=== PATIENT | male | born 1940 | race Caucasian/White ===

== ENCOUNTER 2017-03-21 09:59 | Emergency (ER) | payer BC, OTHER ==
[~2017-03-21] VITALS: Ht 175.3 cm; Wt 60.0 kg
[~2017-03-21 09:59] MED LIST: ASPCH81 PO; CEPH500C2 PO; DLN100 PO; HYDR2TAB2 PO; IBUP600T44 PO; LISI40TA PO
[2017-03-21 10:02] VITALS: Ht 175.3 cm; Wt 60.0 kg
[2017-03-21] MEDS ORDERED: MoRPHine SULFATE 4 MG/ML 1 ML CARP\\VIAL IV PRN (10:30)
--- NOTE | 2017-03-21 11:00 | DIAGNOSTIC IMAGING REPORT ---
LUMBAR SPINE CT CT DOSE: 598.20 mGy.cm HISTORY: Trauma. Pain. r/o injury from fall TECHNIQUE: Multiaxial CT images of the lumbar spine were performed and reformatted in the sagittal and coronal plane without the use of contrast. COMPARISON: None. FINDINGS: Considerable degenerative disc change throughout the entire lumbar region. Virtual complete loss of disc spaces from L2 through S1. Slight concave deformity superior endplates of L2 and T12 felt to be nonacute radiographically. L1-L2: Moderate multifactorial narrowing of the spinal canal. Moderate narrowing of the neuroforamina bilaterally. Degenerative change posterior facets. L2-L3 moderate multifactorial narrowing of the spinal canal. Moderate osteophytic narrowing of the left and to lesser extent right neuroforamina. L3-L4: Significant multifactorial spinal stenosis. Significant osteophytic narrowing of the neuroforamina bilaterally. L4-L5: Significant multifactorial spinal stenosis. Significant osteophytic narrowing of the neuroforamina bilaterally. L5-S1: Moderate osteophytic narrowing of the neuroforamina bilaterally. Degenerative changes posterior facets. IMPRESSION: 1. Severe degenerative change throughout the entire lumbar region. 2. Multifactorial spinal stenosis at the bulk of the levels of the lumbar spine from L2 through S1. 3. Considerable degenerative change posterior elements with narrowing of the bulk of the neuroforamina bilaterally. 4. No acute abnormalities appreciated. Electronically signed by: Rajan Caceres M.D. 03/21/2017 10:59 AM Dictated Date/Time: 03/21/2017 10:54 AM
[2017-03-21] MEDS ORDERED: ASPI-232 PO (11:12)
[2017-03-21] MEDS ORDERED: DLN100 PO (11:12)
[2017-03-21] MEDS ORDERED: OXYC-57 PO (11:12)
--- NOTE | 2017-03-21 11:37 | EMERGENCY ROOM VISIT NOTE ---
History Report prepared by Liam: Veto Wade Under the Supervision of: Dr. Neal Gale D.O. First contact with patient: 10:09 Chief Complaint: BACK PAIN Stated Complaint: BACK PAIN/INJURY History of Present Illness The patient is a 76 year old male who presents to the Emergency Room with complaints of low back pain starting about 10 days ago and worsening about 7 days ago. He has pain radiation down his legs bilaterally. He reports bilateral lower extremity swelling and numbness. He had an onset of his pain after a fall when he injured his back. He has worsening pain with lying down flat. As per son , the patient was evaluated at [facility] 4 days ago. He was prescribed pain medications without relief. He was supposed to get an MRI yesterday but was unable to get one due to the severity of the pain. He denies chest pain, shortness of breath, abdominal pain, or any other complaints. He is not on any blood thinners. Source of History: patient Onset: about 10 days ago Position: back (lower) Timing: worsening Modifying Factors (Worsening): other (lying down flat) Modifying Factors (Relieving): other (pain medications without relief) Associated Symptoms: + numbness (bilateral lower extremity), No chest pain, No SOB, No abdominal pain Review of Systems See HPI for pertinent positives & negatives. A total of 10 systems reviewed and were otherwise negative. Past Medical & Surgical Medical Problems: (1) Amputation of left foot (2) Benign hypertension (3) Hypertension (4) Orthopedic surgery (5) Seizure (6) UTI Family History Patient reports no known family medical history. Social History Smoking Status: Never Smoker Alcohol Use: none Drug Use: none Marital Status: Occupation Status: retired Current/Historical Medications Scheduled Aspirin (Aspir-81), 1 TAB PO DAILY Lisinopril (Zestril), 40 MG PO DAILY Phenytoin Sodium (Dilantin), 3 CAP PO BID Scheduled PRN Oxycodone/Acetaminophen 5MG/325MG (Percocet 5MG/325MG), 1 TABLET PO Q6H PRN for Pain Allergies Coded Allergies: No Known Allergies (Verified , 03/21/17) Physical Exam Vital Signs Date Time Temp Pulse Resp B/P (MAP) Pulse Ox O2 Delivery O2 Flow Rate FiO2 03/21/17 10:02 36.7 86 20 189/101 94 Room Air Physical Exam CONSTITUTIONAL/VITAL SIGNS: Reviewed / noted above. GENERAL: Non-toxic in appearance. INTEGUMENTARY: Warm, dry, and [place]. HEAD: Normocephalic. EYES: without scleral icterus or trauma. ENT/OROPHARYNX: clear and moist. LYMPHADENOPATHY/NECK: Is supple without lymphadenopathy or meningismus. RESPIRATORY: Lungs clear and equal. CARDIOVASCULAR: Regular rate and rhythm. GI/ABDOMEN: Soft and nontender. No organomegaly or pulsatile mass. No rebound or guarding. Normal bowel sounds. EXTREMITIES: Warm and well perfused. Normal patellar reflexes. Left lower extremity amputation. BACK: No CVA tenderness. NEUROLOGICAL: Intact without focal deficits. PSYCHIATRIC: normal affect. MUSCULOSKELETAL: Normally developed with good muscle tone. Medical Decision & Procedures ER Provider Diagnostic Interpretation: CT results as stated below per my review and radiologist interpretation: LUMBAR SPINE CT CT DOSE: 598.20 mGy.cm HISTORY: Trauma. Pain. r/o injury from fall TECHNIQUE: Multiaxial CT images of the lumbar spine were performed and reformatted in the sagittal and coronal plane without the use of contrast. COMPARISON: None. FINDINGS: Considerable degenerative disc change throughout the entire lumbar region. Virtual complete loss of disc spaces from L2 through S1. Slight concave deformity superior endplates of L2 and T12 felt to be nonacute radiographically. L1-L2: Moderate multifactorial narrowing of the spinal canal. Moderate narrowing of the neuroforamina bilaterally. Degenerative change posterior facets. L2-L3 moderate multifactorial narrowing of the spinal canal. Moderate osteophytic narrowing of the left and to lesser extent right neuroforamina. L3-L4: Significant multifactorial spinal stenosis. Significant osteophytic narrowing of the neuroforamina bilaterally. L4-L5: Significant multifactorial spinal stenosis. Significant osteophytic narrowing of the neuroforamina bilaterally. L5-S1: Moderate osteophytic narrowing of the neuroforamina bilaterally. Degenerative changes posterior facets. IMPRESSION: 1. Severe degenerative change throughout the entire lumbar region. 2. Multifactorial spinal stenosis at the bulk of the levels of the lumbar spine from L2 through S1. 3. Considerable degenerative change posterior elements with narrowing of the bulk of the neuroforamina bilaterally. 4. No acute abnormalities appreciated. Electronically signed by: Rajan Caceres M.D. 03/21/2017 10:59 AM Dictated Date/Time: 03/21/2017 10:54 AM Medications Administered Medications (Trade) Dose Ordered Sig/Eileen Route Start Time Stop Time Status Last Admin Dose Admin Morphine Sulfate (MoRPHine SULFATE INJ) 4 mg Q4H PRN IV 03/21/17 10:30 04/04/17 10:29 03/21/17 10:28 4 MG ED Course 1009: Previous medical records were reviewed. The patient was evaluated in room B07. A complete history and physical examination was performed. 1030: Morphine Sulfate 4 mg IV 1138: On reevaluation, the patient is resting comfortably. I discussed the results and findings with the patient. He verbalized agreement of the treatment plan. He was discharged home. Medical Decision Differential considered includes cauda equina syndrome, conus medullaris, spinal cord compression syndrome, peripheral nerve compression, fractures or subluxations, intra-abdominal pathology such as abdominal aortic aneurysm or kidney stones, muscle strain, transverse myelitis, spinal cord injury. Medication Reconciliation: I attest that I have personally reviewed the patient' s current medication list. Blood pressure Screening: Patient was found to have an elevated blood pressure and was referred to their primary doctor for recheck and further treatment. This is a 76-year-old male who presents to the ED with a chief complaint of a fall 10 days ago. He has experienced low back pain since that time. It is worsened since that time. He complains of pain in the low lumbar region that radiates into his legs. The patient was seen by [facility] on Friday. He was given pain medication for this. They ordered an MRI on Friday but he was unable to tolerate laying flat. He came in here for additional evaluation. He was given morphine IV here. A CT scan of the lumbar spine reveal severe degenerative changes as well as some narrowing of the neural foramina bilaterally as well as multifactorial spinal stenosis. There is no acute injury. The patient was told the results of the test. He was felt to be stable for discharge and outpatient follow-up with his orthopedist. Impression Primary Impression: Low back pain Scribe Attestation The scribe's documentation has been prepared under my direction and personally reviewed by me in its entirety. I confirm that the note above accurately reflects all work, treatment, procedures, and medical decision making performed by me. Departure Information Dispostion Home / Self-Care Referrals Rodolfo Crum D.O. (PCP) Forms HOME CARE DOCUMENTATION FORM, IMPORTANT VISIT INFORMATION Patient Instructions My [facility] Additional Instructions Follow-up with your market risk specialist for further evaluation of your symptoms.
[2017-03-21 11:57] VITALS: BP 164/102; PULSE 79; TEMP 36.7; O2SAT 96
== END 2017-03-21 11:59 | disposition home or self-care (01) ==
LOC: C.EDB 10:00
DX: M54.5 Low back pain (principal); W19.XXXD Unspecified fall, subsequent encounter; Z89.432 Acquired absence of left foot; I10 Essential (primary) hypertension; Z87.440 Personal history of urinary (tract) infections; Z79.82 Long term (current) use of aspirin; Z79.899 Other long term (current) drug therapy

== ENCOUNTER → 2017-04-14 | Outpatient (CLI) | payer OTHER ==
[~2017-04-14] MED LIST changes: -ASPCH81 PO; +ASPI-232 PO; -CEPH500C2 PO; -HYDR2TAB2 PO; -IBUP600T44 PO; +OXYC-57 PO; +OXYC1TAB3 PO
--- NOTE | 2017-04-14 18:34 | DIAGNOSTIC IMAGING REPORT ---
MRI LUMBAR SPINE W/O CONTRAST CLINICAL HISTORY: Low back pain and bilateral leg radiculopathy. History of trauma. TECHNIQUE: Sagittal and axial T1, T2 and STIR images were obtained. COMPARISON STUDY: CT scan dated 03/21/2017 OBSERVATIONS: There is an S-shaped lumbar scoliosis. There is a trabeculated bladder. There is an old superior endplate L2 compression fracture. There is marrow edema involving both sacral alae. Although axial images were not acquired through this area, the findings are viewed as suspicious for bilateral sacral fractures. L1-2: There is a circumferential disc bulge. There is mild spinal stenosis. There is bilateral foraminal narrowing. L2-3: There is a circumferential disc bulge present. There is mild spinal stenosis. There is moderate to severe left-sided foraminal narrowing and mild right-sided foraminal narrowing L3-4: There is a circumferential disc bulge present. There is moderate to severe spinal stenosis. There is bilateral foraminal narrowing. L4-5: There is a circumferential disc bulge present. There is severe right-sided foraminal narrowing. There is no significant spinal stenosis as the thecal sac is rather small this level L5-S1: There is a circumferential disc bulge present. There is bilateral foraminal stenosis. There is no significant spinal stenosis. The conus medullaris and cauda equina appear normal. IMPRESSION: 1. Bilateral sacral ala edema, most consistent with bilateral sacral insufficiency fractures. 2. Multilevel spondylitic changes with multilevel foraminal narrowing, and multilevel spinal stenosis which is moderate to severe at the L3-4 level 3. Extensive bladder trabeculation Electronically signed by: Bobby Grimes M.D. 04/14/2017 6:33 PM Dictated Date/Time: 04/14/2017 6:24 PM
== END | disposition home or self-care (01) ==
LOC: C.MRI 15:54
PROVIDERS: ATTEND Physician Assistant
DX: M54.5 Low back pain (principal)

== ENCOUNTER 2017-04-15 07:29 | Emergency (ER) | payer OTHER ==
[~2017-04-15] VITALS: Ht 175.3 cm; Wt 59.1 kg
[~2017-04-15 07:29] MED LIST changes: -OXYC1TAB3 PO
[2017-04-15 07:36] VITALS: TEMP 36.9; Ht 175.3 cm; Wt 59.1 kg
[2017-04-15] MEDS ORDERED: MoRPHine SULFATE 10 MG/ML CARP/VIAL IM STA (08:01)
--- NOTE | 2017-04-15 08:11 | EMERGENCY ROOM VISIT NOTE ---
History First contact with patient: 07:50 Chief Complaint: FALL Stated Complaint: FALL` History of Present Illness The patient is a 77 year old male who presents to the Emergency Room with complaints of fall. The patient was at this hospital yesterday and having an MRI of his low back. He states that he had to take his prosthetic left leg off. He states that he was in the bathroom and lost his balance and fell. He believes he struck his right ribs on the commode. He states he also struck his head and sustained a skin tear to the right upper extremity. He states that they offered for the patient to come to the emergency department but he declined and wanted to go home. The patient states he is having worsening pain in the right ribs and right arm. He states that his neck hurt yesterday but that has slightly improved. He denies any shortness of breath. He denies syncope. He denies any abdominal pain, nausea or vomiting. He denies any change in his low back pain or radicular pain to his legs. Review of Systems A 10 system review of systems was completed with positives and pertinent negatives listed in the HPI. Past Medical/Surgical History Medical Problems: (1) Amputation of left foot (2) Benign hypertension (3) Hypertension (4) Orthopedic surgery (5) Seizure (6) UTI Family History Patient reports no known family medical history. Social History Smoking Status: Never Smoker Alcohol Use: none Drug Use: none Marital Status: Occupation Status: retired Current/Historical Medications Scheduled Aspirin (Aspir-81), 1 TAB PO DAILY Lisinopril (Zestril), 40 MG PO DAILY Phenytoin Sodium (Dilantin), 3 CAP PO BID Scheduled PRN Oxycodone Ir (Roxicodone Ir), 1-2 TAB PO Q4H PRN for Pain Allergies Coded Allergies: No Known Allergies (Verified , 04/15/17) Physical Exam Vital Signs Date Time Temp Pulse Resp B/P (MAP) Pulse Ox O2 Delivery O2 Flow Rate FiO2 04/15/17 13:31 68 16 155/91 97 04/15/17 11:39 15 174/99 99 04/15/17 10:42 71 15 177/108 98 Room Air 04/15/17 09:25 61 16 167/97 97 Room Air 04/15/17 07:36 36.9 83 18 174/109 95 Room Air Physical Exam VITALS: Vitals are noted on the nurse's note and reviewed by myself. Vital signs stable. GENERAL: This is a 77-year-old male, in no acute distress, nondiaphoretic, well- developed well-nourished. SKIN: There is a very large but superficial skin tear to the right humerus area. There is ecchymosis noted to the right posterior lower ribs. There is no tenting of the skin. Capillary reflex less than 2 seconds. HEAD: Normocephalic atraumatic. EARS: External auditory canals clear, tympanic membranes pearly antoine without erythema or effusion bilaterally. No hemotympanums. No erickson sign. No mastoid tenderness. EYES: Pupils equal round and reactive to light and accommodation. Conjunctivae without injection, sclerae without icterus. Extraocular movements intact. Fundoscopic exam without hemorrhages or papilledema. NOSE: Patent, turbinates without inflammation or discharge. No septal hematoma or bleeding. FACE: No facial tenderness. Full range of motion of the jaw without tenderness. MOUTH: Mucous membranes moist. Pharynx without erythema or exudate. Uvula midline. Airway patent. Tongue does not deviate. NECK: Supple without nuchal rigidity. Cervical spine is nontender. The patient reports some stiffness with movement of the neck. No JVD. HEART: Regular rate and rhythm without murmurs gallops or rubs. LUNGS: Clear to auscultation bilaterally without wheezes, rales or rhonchi. No retractions or accessory muscle use. There is tenderness to palpation to the right posterior lower ribs in the area of ecchymosis. ABDOMEN: Positive bowel sounds x 4. Normal tympanic percussion. Soft, nontender, without masses or organomegaly. MUSCULOSKELETAL: No muscle atrophy, erythema, or edema noted. There is decreased range of motion in the right shoulder. There is tenderness to palpation over the skin tear. Strength 5/5 throughout. NEURO: Patient was alert and oriented to person place and time. Normal Mini- Mental status exam. No focal neurological deficits. Medical Decision & Procedures ER Provider Diagnostic Interpretation: THORACIC SPINE CT CT DOSE: HISTORY: Trauma. Pain. back pain, please reformat from chest ct TECHNIQUE: Multiaxial CT images of the thoracic spine were performed and reformatted in the sagittal and coronal plane without the use of contrast. COMPARISON: None. FINDINGS: Considerable degenerative disc change throughout the entire thoracic region. Mild compression deformities of T4 with moderate compression deformities T5 felt to be nonacute by CT criteria. Slightly fragmented 75% compression deformity T7 most likely acute. Based on the transaxial transaxial images possible slight progression of compression at T5 at its anterior endplate. No evidence for retropulsion of any component of the vertebral body. 3 mm posterior retropulsion of T7. Major compromise of the spinal canal is not appreciated. Moderate narrowing of the neuroforamina bilaterally. All remaining components of the lower thoracic region are considered unremarkable. IMPRESSION: 1. 75% compression deformity T7 with 3 mm retropulsion of the T7 posterior margin. 2. No significant compromise of the spinal canal with mild/moderate narrowing of the neuroforamina bilaterally. 3. 50% compression deformity T5 the bulk of which appears to be chronic although there may be a slight acute posttraumatic deformity/ component of the anterior vertebral margin. 4. Old mild compression deformity T4. CT SCAN OF THE CERVICAL SPINE CLINICAL HISTORY: Fall with neck pain. COMPARISON STUDY: CT scan of the cervical spine dated 12/23/2012. TECHNIQUE: CT scan of the cervical spine is performed from the skull base to the upper thoracic spine. Images are reviewed in the axial, sagittal, and coronal planes. IV contrast was not administered for this examination. CT DOSE: 478.67 mGycm FINDINGS: Skeletal structures: The skeletal structures are osteopenic. There is no evidence of fracture or subluxation involving the cervical spine. Vertebral body height is maintained. There is minimal anterolisthesis at C3-C4 and C4-C5. Alignment is otherwise preserved. The odontoid process and lateral masses are intact. The atlantoaxial articulation is preserved noting productive degenerative change. The spinous processes appear intact. Anterior osteophytes are seen in the lower cervical region. A bone island is incidentally noted in T3. There is advanced multilevel cervical spondylosis. Uncovertebral and facet arthropathy contribute to neural foraminal narrowing at most levels. Intervertebral discs: There is advanced disc space narrowing seen at C3-C4, C5-C6, C6-C7, and C7-T1. Mild to moderate disc space narrowing is seen at the remaining levels. Central canal: Posterior disc osteophyte complexes from C4 -C5 through C7-T1 likely contribute to acquired compromise of the central canal. Soft tissues: The prevertebral and paraspinous soft tissues are within normal limits. There is atherosclerotic calcification of the carotid bulbs. Calvarium: The visualized calvarium at the skull base appears intact. Brain parenchyma: Partially visualized brain parenchyma the skull base is within normal limits. Sinuses and mastoids: The visualized paranasal sinuses are clear. The mastoid air cells are well pneumatized. Lung apices: Emphysema is noted. There is a calcified granuloma the left apex. IMPRESSION: 1. There is no evidence of fracture or subluxation involving the cervical spine. 2. Osteopenia and advanced multilevel cervical spondylosis as discussed above. 3. Emphysema. DIAGNOSTIC IMAGING [~ rep ct add3]] (CHEST) THORAX WITHOUT HISTORY:77 yearsMalefall, right posterior rib pain COMPARISON: MRI lumbar spine 04/14/2017 TECHNIQUE: Multiple axial CT images of the chest were obtained without contrast. FINDINGS: No focal thyroid nodule. No pathologic-appearing adenopathy identified. Coronary arterial calcifications are seen. There is atherosclerosis of the aorta. There is a calcified granuloma of the left upper lobe. Lungs are mildly hyperinflated with mild biapical predominant centrilobular emphysema. No pneumothorax, pleural effusion or focal airspace consolidation. There is minimal linear subsegmental atelectasis and/or pleural parenchymal scarring of the basal right lower lobe. A 3 mm perifacial lymph node is seen on the right adjacent to the major fissure. Central airways are patent. 11 x 8 mm circumscribed low attenuating lesion of the hepatic dome is nonspecific, however suggests hepatic cyst. There are bilateral low attenuating lesions of the adrenal glands lesion on the left measuring 2.6 x 1.7 cm lesion on the right measuring 2.2 x 1.4 cm compatible with adrenal adenomas. Soft tissues are unremarkable. Sclerotic focus involves the posterior right sixth rib which may reflect a bone island. There is mild cortical buckling of the lateral right fifth, sixth and seventh ribs suggesting acute nondisplaced fractures. No displaced rib fracture is identified. Multilevel advanced discogenic degenerative changes are present. Approximately 50% anterior endplate compression deformities are seen within the T5 and T7 vertebral bodies. There is approximately 3 mm retropulsion of the T7 vertebral body. IMPRESSION: 1. Advanced multilevel discogenic degenerative changes with approximately 50% anterior endplate compression deformity at T5 and T7. There is approximately 3 mm retropulsion of the T7 vertebral body. Chronicity is unknown without comparison available at this time. If of further clinical concern, dedicated MRI of the thoracic spine may be beneficial to further evaluate. 2. Minimal angulation of the lateral right fifth, sixth and seventh ribs suspicious for subtle nondisplaced fractures without pneumothorax. 3. Bilateral adrenal adenomas. HEAD CT NONCONTRAST CT DOSE: 638.56 mGycm HISTORY: Trauma fall, head injury TECHNIQUE: Multiaxial CT images of the head were performed without the use of intravenous contrast. Comparison: 12/23/2012 Findings: The paranasal sinuses and mastoid air cells are clear. The calvarium and skull base are intact. The ventricles and sulci are within normal limits. There is no mass, hematoma, midline shift, or acute infarct. Mild age-related chronic small vessel change Impression: No acute intracranial abnormality. Mild age-related change RIGHT HUMERUS MIN 2 VIEWS ROUTINE CLINICAL HISTORY: fall, right arm pain Right trauma. Pain. COMPARISON: None. DISCUSSION: Nondisplaced cortical fracture radial head. Remainder the humerus show degenerative change but no additional acute abnormalities appreciated. There is dated history of prior elbow fracture although films are not available for comparison. There is no evidence for soft tissue swelling. IMPRESSION: Degenerative change. No acute process of the humerus. Cortical fracture radial head possibly pre-existing per history: Laboratory Results 04/15/17 10:15 Red Blood Count 3.66, Mean Corpuscular Volume 97.3, Mean Corpuscular Hemoglobin 33.6, Mean Corpuscular Hemoglobin Concent 34.6, Mean Platelet Volume 8.5, Neutrophils (%) (Auto) 62.6, Lymphocytes (%) (Auto) 21.8, Monocytes (%) (Auto) 12.3, Eosinophils (%) (Auto) 2.9, Basophils (%) (Auto) 0.3, Neutrophils # (Auto ) 4.70, Lymphocytes # (Auto) 1.64, Monocytes # (Auto) 0.92, Eosinophils # (Auto ) 0.22, Basophils # (Auto) 0.02 04/15/17 10:15 Test 04/15/17 10:15 White Blood Count 7.51 K/uL (4.8-10.8) Red Blood Count 3.66 M/uL (4.7-6.1) Hemoglobin 12.3 g/dL (14.0-18.0) Hematocrit 35.6 % (42-52) Mean Corpuscular Volume 97.3 fL (80-100) Mean Corpuscular Hemoglobin 33.6 pg (25-34) Mean Corpuscular Hemoglobin Concent 34.6 g/dl (32-36) Platelet Count 228 K/uL (130-400) Mean Platelet Volume 8.5 fL (7.4-10.4) Neutrophils (%) (Auto) 62.6 % Lymphocytes (%) (Auto) 21.8 % Monocytes (%) (Auto) 12.3 % Eosinophils (%) (Auto) 2.9 % Basophils (%) (Auto) 0.3 % Neutrophils # (Auto) 4.70 K/uL (1.4-6.5) Lymphocytes # (Auto) 1.64 K/uL (1.2-3.4) Monocytes # (Auto) 0.92 K/uL (0.11-0.59) Eosinophils # (Auto) 0.22 K/uL (0-0.5) Basophils # (Auto) 0.02 K/uL (0-0.2) RDW Standard Deviation 48.5 fL (36.4-46.3) RDW Coefficient of Variation 13.7 % (11.5-14.5) Immature Granulocyte % (Auto) 0.1 % Immature Granulocyte # (Auto) 0.01 K/uL (0.00-0.02) Anion Gap 8.0 mmol/L (3-11) Est Creatinine Clear Calc Drug Dose 65.7 ml/min Estimated GFR () 100.6 Estimated GFR (Non- 86.8 BUN/Creatinine Ratio 17.9 (10-20) Calcium Level 9.2 mg/dl (8.5-10.1) Total Bilirubin 0.2 mg/dl (0.2-1) Aspartate Amino Transf (AST/SGOT) 24 U/L (15-37) Alanine Aminotransferase (ALT/SGPT) 33 U/L (12-78) Alkaline Phosphatase 170 U/L (45-117) Total Protein 7.5 gm/dl (6.4-8.2) Albumin 3.5 gm/dl (3.4-5.0) Globulin 4.0 gm/dl (2.5-4.0) Albumin/Globulin Ratio 0.9 (0.9-2) Medications Administered Medications (Trade) Dose Ordered Sig/Eileen Route Start Time Stop Time Status Last Admin Dose Admin Morphine Sulfate (MoRPHine SULFATE INJ) 6 mg NOW STAT IM 04/15/17 08:01 04/15/17 08:04 DC 04/15/17 08:10 6 MG Morphine Sulfate (MoRPHine SULFATE INJ) 4 mg NOW STAT IV 04/15/17 10:36 04/15/17 10:37 DC 04/15/17 10:44 4 MG ED Course The patient was seen and examined. Previous visits were reviewed. The patient does not have a fever or leukocytosis. He does have a mild anemia. He does not have any significant electrolyte abnormality. Imaging was obtained as above. CT scan of the thoracic spine reveals a 75% compression deformity of T3 with 3 mm of retropulsion which is thought to be acute. There is 50% compression to the T5 vertebrae which appears to be chronic with possibly an acute component. I was able to find an x-ray from 1998 in which the T5 compression fracture was present. There is an old T4 compression deformity. CT scan of the neck reveals chronic changes CT scan of the brain is negative for intracranial bleeding or skull fracture CT scan of the chest reveals right-sided fifth, sixth and seventh rib fractures The patient was given 6 mg IV morphine which significantly improved his pain He was given additional 4 mg IV morphine and was feeling markedly better and was able to ambulate without significant difficulty The patient presents to the emergency department after falling in the hospital yesterday while he was in the bathroom during an MRI study. He declined evaluation in the emergency department yesterday. The patient has chronic low back pain with radiation to his legs. This was unchanged since the fall. The MRI from yesterday was reviewed and reveals sacral insufficiency fractures. The patient has a skin tear to the right arm. It is not suturable. There is minimal bleeding. It was cleaned and dressed with a nonstick dressing. The patient has right-sided fifth 6 and seventh rib fractures likely new from the fall yesterday. There is old radial head fracture on x-ray of the right humerus. He does not have any tenderness over the elbow. There is a compression deformity at T3 with 3 mm of retropulsion. Radiology suspects that this is acute. The case was discussed with Dr. Puente with whom the patient follows. He recommends admission to the hospital, possible TLSO brace and discharged to inpatient rehabilitation. The patient adamantly refuses admission to the hospital. He adamantly refuses inpatient rehabilitation. He states that he is not interested in a brace. He states that he had a brace before that it made his symptoms worse. I again discussed the case with Dr. Puente who evaluated the patient in the emergency department. He believes that this is likely a chronic T3 compression fracture and not new from his fall yesterday. He will follow-up with the patient in the office on Friday morning. The patient again was adamant he did not want stay in the hospital and did not want inpatient rehabilitation. The patient stated he wanted to go home. He stated that if it was his time he wanted to at home. He states that he understands the risks. He will be given a prescription for OxyIR. He should return with worsening symptoms. Otherwise, he should follow-up with Dr. Yin on Friday as scheduled. He should also follow-up with his family doctor before the end of the week to recheck the skin tear. He may need referral to the wound care center if the skin tear is not healing well. The patient was also seen and examined by who agrees with the assessment and treatment plan. Medical Decision DIFFERENTIAL DIAGNOSIS: Lumbar strain, degenerative disc disease, spondylolisthesis, herniated disc, spinal stenosis, osteoporosis, fracture, cauda equina syndrome, neoplasm, infection, inflammatory arthritis, intracranial bleeding, skull fracture, cervical spine fracture, extremity fracture, among others among others. [place] Drug Monitoring Program Search Results: patient reviewed within database, no issues identified Impression Primary Impression: Compression fracture Additional Impressions: Rib fractures Skin tear Fall Back pain Departure Information Dispostion Home / Self-Care Condition GOOD Prescriptions Oxycodone Ir (Roxicodone Ir) 5 Mg Tab 1-2 TAB PO Q4H Y for Pain, #36 TAB For Initial Treatment Prov: Alexandra Briggs PA-C 04/15/17 Referrals Rodolfo Crum D.O. (PCP) Sander Yin M.D. Patient Instructions My [facility] Ensequence Additional Instructions Oxy IR 1-2 tablets every 4-6 hrs as needed for worse pain. No driving or alcohol use with Oxy IR. Follow-up with Dr. Yin on Friday at 9:30 as scheduled Follow-up with your family doctor within the next 3 days to recheck the skin tear on the arm. You could try Telfa nonstick gauze to redress it. You may need to see the wound care center if the skin tear does not heal well. Return to the emergency department with intractable or worsening pain. Problem Qualifiers Additional Impressions: Rib fractures Encounter type: initial encounter Rib fracture type: multiple ribs Fracture type: closed Laterality: right Qualified Codes: S22.41XA - Multiple fractures of ribs, right side, initial encounter for closed fracture Fall Encounter type: initial encounter Qualified Codes: W19.XXXA - Unspecified fall, initial encounter Back pain Back pain location: thoracic back pain Chronicity: acute Back pain laterality: right Qualified Codes: M54.6 - Pain in thoracic spine
--- NOTE | 2017-04-15 08:50 | DIAGNOSTIC IMAGING REPORT ---
HEAD CT NONCONTRAST CT DOSE: 638.56 mGycm HISTORY: Trauma fall, head injury TECHNIQUE: Multiaxial CT images of the head were performed without the use of intravenous contrast. Comparison: 12/23/2012 Findings: The paranasal sinuses and mastoid air cells are clear. The calvarium and skull base are intact. The ventricles and sulci are within normal limits. There is no mass, hematoma, midline shift, or acute infarct. Mild age-related chronic small vessel change Impression: No acute intracranial abnormality. Mild age-related change Electronically signed by: Rajan Caceres M.D. 04/15/2017 8:49 AM Dictated Date/Time: 04/15/2017 8:47 AM
--- NOTE | 2017-04-15 08:56 | DIAGNOSTIC IMAGING REPORT ---
CT SCAN OF THE CERVICAL SPINE CLINICAL HISTORY: Fall with neck pain. COMPARISON STUDY: CT scan of the cervical spine dated 12/23/2012. TECHNIQUE: CT scan of the cervical spine is performed from the skull base to the upper thoracic spine. Images are reviewed in the axial, sagittal, and coronal planes. IV contrast was not administered for this examination. CT DOSE: 478.67 mGycm FINDINGS: Skeletal structures: The skeletal structures are osteopenic. There is no evidence of fracture or subluxation involving the cervical spine. Vertebral body height is maintained. There is minimal anterolisthesis at C3-C4 and C4-C5. Alignment is otherwise preserved. The odontoid process and lateral masses are intact. The atlantoaxial articulation is preserved noting productive degenerative change. The spinous processes appear intact. Anterior osteophytes are seen in the lower cervical region. A bone island is incidentally noted in T3. There is advanced multilevel cervical spondylosis. Uncovertebral and facet arthropathy contribute to neural foraminal narrowing at most levels. Intervertebral discs: There is advanced disc space narrowing seen at C3-C4, C5-C6, C6-C7, and C7-T1. Mild to moderate disc space narrowing is seen at the remaining levels. Central canal: Posterior disc osteophyte complexes from C4 -C5 through C7-T1 likely contribute to acquired compromise of the central canal. Soft tissues: The prevertebral and paraspinous soft tissues are within normal limits. There is atherosclerotic calcification of the carotid bulbs. Calvarium: The visualized calvarium at the skull base appears intact. Brain parenchyma: Partially visualized brain parenchyma the skull base is within normal limits. Sinuses and mastoids: The visualized paranasal sinuses are clear. The mastoid air cells are well pneumatized. Lung apices: Emphysema is noted. There is a calcified granuloma the left apex. IMPRESSION: 1. There is no evidence of fracture or subluxation involving the cervical spine. 2. Osteopenia and advanced multilevel cervical spondylosis as discussed above. 3. Emphysema. Electronically signed by: Shane Singh M.D. 04/15/2017 8:55 AM Dictated Date/Time: 04/15/2017 8:50 AM
--- NOTE | 2017-04-15 09:02 | DIAGNOSTIC IMAGING REPORT ---
(CHEST) THORAX WITHOUT HISTORY:77 yearsMalefall, right posterior rib pain COMPARISON: MRI lumbar spine 04/14/2017 TECHNIQUE: Multiple axial CT images of the chest were obtained without contrast. FINDINGS: No focal thyroid nodule. No pathologic-appearing adenopathy identified. Coronary arterial calcifications are seen. There is atherosclerosis of the aorta. There is a calcified granuloma of the left upper lobe. Lungs are mildly hyperinflated with mild biapical predominant centrilobular emphysema. No pneumothorax, pleural effusion or focal airspace consolidation. There is minimal linear subsegmental atelectasis and/or pleural parenchymal scarring of the basal right lower lobe. A 3 mm perifacial lymph node is seen on the right adjacent to the major fissure. Central airways are patent. 11 x 8 mm circumscribed low attenuating lesion of the hepatic dome is nonspecific, however suggests hepatic cyst. There are bilateral low attenuating lesions of the adrenal glands lesion on the left measuring 2.6 x 1.7 cm lesion on the right measuring 2.2 x 1.4 cm compatible with adrenal adenomas. Soft tissues are unremarkable. Sclerotic focus involves the posterior right sixth rib which may reflect a bone island. There is mild cortical buckling of the lateral right fifth, sixth and seventh ribs suggesting acute nondisplaced fractures. No displaced rib fracture is identified. Multilevel advanced discogenic degenerative changes are present. Approximately 50% anterior endplate compression deformities are seen within the T5 and T7 vertebral bodies. There is approximately 3 mm retropulsion of the T7 vertebral body. IMPRESSION: 1. Advanced multilevel discogenic degenerative changes with approximately 50% anterior endplate compression deformity at T5 and T7. There is approximately 3 mm retropulsion of the T7 vertebral body. Chronicity is unknown without comparison available at this time. If of further clinical concern, dedicated MRI of the thoracic spine may be beneficial to further evaluate. 2. Minimal angulation of the lateral right fifth, sixth and seventh ribs suspicious for subtle nondisplaced fractures without pneumothorax. 3. Bilateral adrenal adenomas. The above report was generated using voice recognition software. It may contain grammatical, syntax or spelling errors. Electronically signed by: Bentley Dickey 04/15/2017 9:00 AM Dictated Date/Time: 04/15/2017 8:49 AM
--- NOTE | 2017-04-15 09:21 | DIAGNOSTIC IMAGING REPORT ---
RIGHT HUMERUS MIN 2 VIEWS ROUTINE CLINICAL HISTORY: fall, right arm pain Right trauma. Pain. COMPARISON: None. DISCUSSION: Nondisplaced cortical fracture radial head. Remainder the humerus show degenerative change but no additional acute abnormalities appreciated. There is dated history of prior elbow fracture although films are not available for comparison. There is no evidence for soft tissue swelling. IMPRESSION: Degenerative change. No acute process of the humerus. Cortical fracture radial head possibly pre-existing per history: Electronically signed by: Rajan Caceres M.D. 04/15/2017 9:19 AM Dictated Date/Time: 04/15/2017 9:16 AM
[2017-04-15 10:24] LABS: BASO % 0.3 %; BASO ABS # 0.02 K/uL (0-0.2); COMPLETE YES; EOS % 2.9 %; HEMATOCRIT 35.6 % (42-52); IG% 0.1 %; LYMPH % 21.8 %; LYMPH ABS # 1.64 K/uL (1.2-3.4); MEAN CELL VOLUME 97.3 fL (80-100); MEAN CORPUSCULAR HEMOGLOBIN 33.6 pg (25-34); MEAN CORPUSCULAR HGB CONC 34.6 g/dl (32-36); MEAN PLATELET VOLUME 8.5 fL (7.4-10.4); MONO % 12.3 %; NEUT % 62.6 %; PLATELET COUNT 228 K/uL (130-400); RED BLOOD COUNT 3.66 M/uL (4.7-6.1); WHITE BLOOD COUNT 7.51 K/uL (4.8-10.8)
[2017-04-15] MEDS ORDERED: MoRPHine SULFATE 4 MG/ML 1 ML CARP\\VIAL IV STA (10:36)
[2017-04-15 10:41] LABS: BUN/CREATININE RATIO 17.9 (10-20); CALCIUM 9.2 mg/dl (8.5-10.1); CREATININE 0.8 mg/dl (0.60-1.40)
[2017-04-15 10:44] LABS: ALB/GLOB RATIO 0.9 (0.9-2)
--- NOTE | 2017-04-15 11:36 | DIAGNOSTIC IMAGING REPORT ---
THORACIC SPINE CT CT DOSE: HISTORY: Trauma. Pain. back pain, please reformat from chest ct TECHNIQUE: Multiaxial CT images of the thoracic spine were performed and reformatted in the sagittal and coronal plane without the use of contrast. COMPARISON: None. FINDINGS: Considerable degenerative disc change throughout the entire thoracic region. Mild compression deformities of T4 with moderate compression deformities T5 felt to be nonacute by CT criteria. Slightly fragmented 75% compression deformity T7 most likely acute. Based on the transaxial transaxial images possible slight progression of compression at T5 at its anterior endplate. No evidence for retropulsion of any component of the vertebral body. 3 mm posterior retropulsion of T7. Major compromise of the spinal canal is not appreciated. Moderate narrowing of the neuroforamina bilaterally. All remaining components of the lower thoracic region are considered unremarkable. IMPRESSION: 1. 75% compression deformity T7 with 3 mm retropulsion of the T7 posterior margin. 2. No significant compromise of the spinal canal with mild/moderate narrowing of the neuroforamina bilaterally. 3. 50% compression deformity T5 the bulk of which appears to be chronic although there may be a slight acute posttraumatic deformity/ component of the anterior vertebral margin. 4. Old mild compression deformity T4. Electronically signed by: Rajan Caceres M.D. 04/15/2017 11:35 AM Dictated Date/Time: 04/15/2017 11:30 AM
[2017-04-15] MEDS ORDERED: OXYC1TAB3 PO (12:45)
[2017-04-15 13:31] VITALS: BP 155/91; PULSE 68; O2SAT 97
--- NOTE | 2017-04-15 14:40 | Medical Consult ---
Consultation Date of Consultation: Apr 15, 2017. Attending Physician: Reason for Consultation: low back pain History of Present Illness The patient is a 77-year-old male who is a history of a fall approximately 1 month ago. He was seen as an outpatient with acute onset of low back pain. He has a history of prior thoracic compression fracture treated in the late . His back pain was initially severe but had been improving and underwent an outpatient MRI last p.m. While his left lower extremity prosthesis was off for the MRI he attempted to use the restroom and had a fall from standing height striking the edge of the commode. He reports he had acute onset a rib pain did not seek evaluation initially presented to the ED today today for increased low back pain and rib pain. He denies shortness of breath. He denies lower extremity pain and radiculopathy numbness or weakness. He denies any pain or thoracic back pain. At the time of my evaluation the patient was comfortable he was sitting in the bed with the back of the bed elevated. He easily sat up independently swung his legs over the bed and set upright without discomfort. He denied numbness weakness or incontinence. His lumbar MRI imaging demonstrated severe advanced degenerative changes from L2 to the sacrum with multilevel disc degeneration Modic changes and spinal stenosis both central and foraminal. Sacral insufficiency fractures are noted bilaterally. A CT scan of the chest and spine reconstructions revealed prior compression deformities of T5 and T7. Radiology felt there is potential for acute nature of the T7 fracture. The T5 fracture had previous been documented on radiographs from 1998. He had significant anterior aspect formation and what look like bony remodeling across the endplates of T6 7 and T7 8. There is no posterior element disruption at either level. There is minimal protrusion of the posterior wall. 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 Past Medical/Surgical History Medical Problems: (1) Back pain Status: Acute (2) Compression fracture Status: Acute (3) Fall Status: Acute (4) Low back pain Status: Acute (5) Rib fractures Status: Acute (6) Skin tear Status: Acute Family History Patient reports no known family medical history. Social History Smoking Status: Never Smoker Drug Use: none Marital Status: Occupation Status: retired Allergies Coded Allergies: No Known Allergies (Verified , 04/15/17) Review of Systems Eyes: No worsening of vision, No eye pain, No redness, No discharge, No diplopia, No problem reported Musculoskeletal: + problem reported (LBP), No joint pain, No muscle pain, No swelling, No calf pain Neurologic: No memory loss, No paralysis, No weakness, No numbness/tingling, No vertigo, No balance problems, No problem reported Physical Exam Date Time Temp Pulse Resp B/P (MAP) Pulse Ox O2 Delivery O2 Flow Rate FiO2 04/15/17 13:31 68 16 155/91 97 04/15/17 11:39 15 174/99 99 04/15/17 10:42 71 15 177/108 98 Room Air 04/15/17 09:25 61 16 167/97 97 Room Air 04/15/17 07:36 36.9 83 18 174/109 95 Room Air General Appearance: no apparent distress Head: normocephalic, atraumatic Eyes: normal inspection ENT: hearing grossly normal Neck: supple (NT ROM & palpation) Back: normal inspection, no muscle spasm (no tenderness with palpation or percussion of thorcacic or lumbar spinous processes, no stepoffs or crepitus) Extremities/Musculoskelatal: normal inspection, normal range of motion (NT ROM Bilateral hips) Neurologic/Psych: no motor/sensory deficits, alert, normal mood/affect ( grossly normal motor strength in BLEs proximally and RLE distally...LLE had amputation) Laboratory Results Last 24 Hours Test 04/15/17 10:15 White Blood Count 7.51 K/uL Red Blood Count 3.66 M/uL Hemoglobin 12.3 g/dL Hematocrit 35.6 % Mean Corpuscular Volume 97.3 fL Mean Corpuscular Hemoglobin 33.6 pg Mean Corpuscular Hemoglobin Concent 34.6 g/dl Platelet Count 228 K/uL Mean Platelet Volume 8.5 fL Neutrophils (%) (Auto) 62.6 % Lymphocytes (%) (Auto) 21.8 % Monocytes (%) (Auto) 12.3 % Eosinophils (%) (Auto) 2.9 % Basophils (%) (Auto) 0.3 % Neutrophils # (Auto) 4.70 K/uL Lymphocytes # (Auto) 1.64 K/uL Monocytes # (Auto) 0.92 K/uL Eosinophils # (Auto) 0.22 K/uL Basophils # (Auto) 0.02 K/uL RDW Standard Deviation 48.5 fL RDW Coefficient of Variation 13.7 % Immature Granulocyte % (Auto) 0.1 % Immature Granulocyte # (Auto) 0.01 K/uL Sodium Level 139 mmol/L Potassium Level 4.0 mmol/L Chloride Level 106 mmol/L Carbon Dioxide Level 25 mmol/L Anion Gap 8.0 mmol/L Blood Urea Nitrogen 14 mg/dl Creatinine 0.80 mg/dl Est Creatinine Clear Calc Drug Dose 65.7 ml/min Estimated GFR () 100.6 Estimated GFR (Non- 86.8 BUN/Creatinine Ratio 17.9 Random Glucose 89 mg/dl Calcium Level 9.2 mg/dl Total Bilirubin 0.2 mg/dl Aspartate Amino Transf (AST/SGOT) 24 U/L Alanine Aminotransferase (ALT/SGPT) 33 U/L Alkaline Phosphatase 170 U/L Total Protein 7.5 gm/dl Albumin 3.5 gm/dl Globulin 4.0 gm/dl Albumin/Globulin Ratio 0.9 Assessment & Plan Patient has an aggravation of low back pain due to lumbar disc degeneration spinal stenosis and facet arthrosis. He also has sacral insufficiency fractures which I think a Majority of His Low Back Pain. 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 Given the Rib Fractures Bracing Is Less Than Bryan . He Is Not Anxious to Be Braced or to Be Admitted. He Desires Discharge Home and I'm Agreeable to This As Long As He Presents for Close Radiographic Follow-Up. He Is an Appointment with Me in 3 Days in the Office. The Patient Myself Are Comfortable with This Plan.
== END 2017-04-15 13:31 | disposition home or self-care (01) ==
LOC: C.EDB 07:30
DX: S22.030A Wedge compression fracture of third thoracic vertebra, initial encounter for closed fracture (principal); S22.41XA Multiple fractures of ribs, right side, initial encounter for closed fracture; S41.111A Laceration without foreign body of right upper arm, initial encounter; M54.6 Pain in thoracic spine; W19.XXXA Unspecified fall, initial encounter; Y92.238 Other place in hospital as the place of occurrence of the external cause; I10 Essential (primary) hypertension; Z87.440 Personal history of urinary (tract) infections; Z89.512 Acquired absence of left leg below knee; Z79.82 Long term (current) use of aspirin; Z79.899 Other long term (current) drug therapy

== ENCOUNTER 2018-01-24 20:55 | Inpatient (IN) | payer OTHER ==
[~2018-01-24] VITALS: Ht 175.3 cm; Wt 60.3 kg
[~2018-01-24 20:55] MED LIST changes: -OXYC-57 PO
[2018-01-24] MEDS ORDERED: SODIUM CHLORIDE 0.9% 1000ML 1,000 ML IV STA (22:47)
[2018-01-24] MEDS ORDERED: ONDANSETRON INJ 2 MG/ML 2 ML VIAL IV STA (22:50)
--- NOTE | 2018-01-24 22:52 | EMERGENCY ROOM VISIT NOTE ---
History Report prepared by Liam: Moy Hopkins Under the Supervision of: Dr. Fabiano Pickens D.O. First contact with patient: 22:43 Chief Complaint: BITE Stated Complaint: SOB,CHEST PAIN,NAUSEA,SWOLLEN HANDS History of Present Illness The patient is a 77 year old male who presents to the Emergency Room with complaints of a worsening dog bite to the left hand beginning 2 nights ago. The patient states his two dogs started fighting two nights ago and he tried to separate them. He reports one of his dogs bit his hand. The patient notes his symptoms worsened today when it started to swell and become painful. He states he also developed nausea. He denies any other symptoms. Source of History: patient Onset: 2 nights ago Position: hand (left) Quality: other (dog bite) Timing: worsening Associated Symptoms: + nausea Note: Associated symptoms: swelling to his left hand Review of Systems See HPI for pertinent positives & negatives. A total of 10 systems reviewed and were otherwise negative. Past Medical & Surgical Medical Problems: (1) Amputation of left foot (2) Benign hypertension (3) Hypertension (4) Orthopedic surgery (5) Seizure (6) UTI Family History Patient reports no known family medical history. Social History Smoking Status: Former Smoker Alcohol Use: none Drug Use: none Marital Status: Occupation Status: retired Current/Historical Medications Scheduled Aspirin (Aspir-81), 1 TAB PO DAILY Lisinopril (Zestril), 40 MG PO DAILY Phenytoin Sodium (Dilantin), 3 CAP PO BID Scheduled PRN Ibuprofen Tab (Advil), 200-600 MG PO Q4H PRN for Pain Allergies Coded Allergies: No Known Allergies (Verified , 01/24/18) Physical Exam Vital Signs Date Time Temp Pulse Resp B/P (MAP) Pulse Ox O2 Delivery O2 Flow Rate FiO2 01/25/18 00:29 95 22 136/98 96 Room Air 01/24/18 23:05 99 01/24/18 23:03 98 Room Air 01/24/18 20:57 37.5 103 24 188/121 96 Room Air Physical Exam GENERAL: Patient is awake, alert, and in no acute distress. Patient is somewhat anxious appearing and appears uncomfortable. EYES: The conjunctivae are clear. The pupils are round and reactive. EARS, NOSE, MOUTH AND THROAT: The nose is without any evidence of any deformity. Mucous membranes are moist tongue is midline NECK: The neck is nontender and supple. RESPIRATORY: Normal respiratory effort is noted there is no evidence of wheezing rhonchi or rales CARDIOVASCULAR: Tachycardic rate and regular rhythm noted there no definite murmurs rubs or gallops normal S1 normal S2 GASTROINTESTINAL: The abdomen is soft. Bowel sounds are present in all quadrants. Abdomen is nontender BACK: No midline tenderness or or step-off noted range of motion in flexion extension as well as rotation no signs of muscle spasm noted MUSCULOSKELETAL/EXTREMITIES: There is no evidence of gross deformity full range of motion is noted in the hips and shoulders. Symmetric swelling of the left hand. Significant tenderness. Puncture wounds over the thenar eminence - consistent with a dog bite. SKIN: There is no obvious evidence of any rash. There are no petechiae, pallor or cyanosis noted. Significant lymphangitic streaking up the upper left extremities. NEUROLOGIC: Patient is awake alert and oriented x3 strength is symmetric patellar reflexes are 2+ bilaterally Medical Decision & Procedures ER Provider Diagnostic Interpretation: X-ray of the left hand was obtained in the emergency department. To my interpretation there appears to be significant soft tissue swelling but no definite bony injury or free air. Laboratory Results Test 01/24/18 22:55 Magnesium Level 2.0 mg/dl (1.8-2.4) Total Bilirubin 0.5 mg/dl (0.2-1) Direct Bilirubin 0.1 mg/dl (0-0.2) Aspartate Amino Transf (AST/SGOT) 21 U/L (15-37) Alanine Aminotransferase (ALT/SGPT) 42 U/L (12-78) Alkaline Phosphatase 89 U/L (45-117) Total Protein 8.0 gm/dl (6.4-8.2) Albumin 3.8 gm/dl (3.4-5.0) Phenytoin (Dilantin) Level 13.8 mcg/mL (10-20) Laboratory results per my review. Medications Administered Medications (Trade) Dose Ordered Sig/Eileen Route Start Time Stop Time Status Last Admin Dose Admin Sodium Chloride 1,000 ml @ 999 mls/hr Q1H1M STAT IV 01/24/18 22:47 01/24/18 23:47 DC 01/24/18 23:10 999 MLS/HR Ampicillin Sodium/ Sulbactam Sodium 3000 mg/Sodium Chloride 108 ml @ 200 mls/hr ONE ONCE IV 01/24/18 23:00 01/24/18 23:32 DC 01/24/18 23:28 200 MLS/HR Oxycodone/ Acetaminophen (Percocet 5-325mg Tab) 1 tab NOW ONCE PO 01/24/18 23:00 01/24/18 23:01 DC 01/24/18 23:09 1 TAB Diphtheria/ Pertussis/Tetanus Vacc (Adacel Inj) 0.5 ml ONCE ONCE IM. 01/24/18 23:00 01/24/18 23:01 DC 01/24/18 23:10 0.5 ML Ondansetron HCl (Zofran Inj) 4 mg NOW STAT IV 01/24/18 22:50 01/24/18 22:51 DC 01/24/18 23:09 4 MG ED Course 2244: The patient was evaluated in room C05. A complete history and physical examination were performed. 2247: Ordered NSS 1,000 ml @ 999 mls/hr IV 2250: Ordered Ondansetron HCl 4mg IV 2300: Ordered Adacel Inj 0.5ml IM, Oxycodone/Acetaminophen 1tab PO, Ampicillin Sodium/Sulbactam Sodium 3000mg/Sodium Chloride 108 ml @ 200 mls/hr IV 2349: Upon reevaluation, the patient is resting. I discussed results and treatment plan with him. He verbalizes agreement and understanding. The patient will be evaluated for further management and care. 2350: I spoke with Dr. Youngblood of the [facility] Hospitalist system. The patient will be evaluated for further management and care. Medical Decision Differential diagnosis: Etiologies such as cellulitis, abscess, MRSA infection, DVT, necrotizing fasciitis, dermatitis, drug eruption, as well as others were entertained.. Nursing notes reviewed. The patient is a 77-year-old male who presented to the emergency department for an evaluation of pain and swelling in his left hand. The patient suffered a dog bite to his left upper extremity. Initially it appeared to be healing well but then over the last 24 hours it is starting to become erythematous and swollen. For this reason I feel this is consistent with a cellulitis secondary to a dog bite. The patient was treated with IV fluids as well as IV antibiotics. He was also treated with pain medications in the emergency department. I discussed the patient's laboratory and radiographic studies with him. I also discussed his case with the on-call [facility] hospitalist group. They have agreed to evaluate the patient in the emergency department for further management and disposition. Medication Reconcilliation Current Medication List: was personally reviewed by me Blood Pressure Screening Patient's blood pressure: Elevated blood pressure Monitored by hospitalist. Consults Time Called: 2349 Consulting Physician: Dr. Youngblood of the [facility] Hospitalist system Returned Call: [address] Youngblood of the [facility] Hospitalist system. The patient will be evaluated for further management and care. Impression Primary Impression: Dog bite of left hand Additional Impression: Cellulitis of upper extremity Scribe Attestation The scribe's documentation has been prepared under my direction and personally reviewed by me in its entirety. I confirm that the note above accurately reflects all work, treatment, procedures, and medical decision making performed by me. Departure Information Dispostion Being Evaluated By Hospitalist Referrals Rodolfo Crum D.O. (PCP) Patient Instructions My [facility] Health Problem Qualifiers Primary Impression: Dog bite of left hand Encounter type: initial encounter Qualified Codes: S61.452A - Open bite of left hand, initial encounter; W54.0XXA - Bitten by dog, initial encounter Additional Impression: Cellulitis of upper extremity Laterality: left Qualified Codes: L03.114 - Cellulitis of left upper limb
[2018-01-24] MEDS ORDERED: AMPICILLIN/SULBACTAM SOD INJ 3,000 MG in SODIUM CHLORIDE 0.9% 100ML 100 ML IV ONE (23:00)
[2018-01-24] MEDS ORDERED: DIPHTHERIA/TETANUS/PERTUSSIS 0.5 ML SYR/VIAL IM. ONE (23:00)
[2018-01-24] MEDS ORDERED: OXYCODONE/ACETAMINOPHEN 5-325 TAB PO ONE (23:00)
[2018-01-24 23:15] LABS: BASO % 0.2 %; BASO ABS # 0.03 K/uL (0-0.2); EOS % 1.5 %; EOS ABS # 0.22 K/uL (0-0.5); HEMATOCRIT 35.6 % (42-52); HEMOGLOBIN 12.7 g/dL (14.0-18.0); IG# 0.04 K/uL (0.00-0.02); LYMPH % 14.9 %; LYMPH ABS # 2.18 K/uL (1.2-3.4); MEAN CORPUSCULAR HEMOGLOBIN 34.6 pg (25-34); MEAN CORPUSCULAR HGB CONC 35.7 g/dl (32-36); MEAN PLATELET VOLUME 9.3 fL (7.4-10.4); MONO % 10.8 %; MONO ABS # 1.58 K/uL (0.11-0.59); NEUT % 72.3 %; NEUT ABS # 10.56 K/uL (1.4-6.5); PLATELET COUNT 194 K/uL (130-400); RED CELL DISTRIBUTION WIDTH CV 13.9 % (11.5-14.5); RED CELL DISTRIBUTION WIDTH SD 49.3 fL (36.4-46.3); WHITE BLOOD COUNT 14.61 K/uL (4.8-10.8)
[2018-01-24 23:36] LABS: ALBUMIN 3.8 gm/dl (3.4-5.0); CALCIUM 9.1 mg/dl (8.5-10.1); POTASSIUM 3.9 mmol/L (3.5-5.1)
[2018-01-24] MEDS ORDERED: IBUP-103 PO (23:44)
--- NOTE | 2018-01-25 00:54 | History and Physical ---
History & Physical Date & Time of Service: Jan 25, 2018 at 00:53 Chief Complaint: Sob,Chest Pain,Nausea,Swollen Hands Primary Care Physician: Rodolfo Crum D.O. History of Present Illness Source: patient, hospital records 77-year-old male with a past medical history of seizure disorder, hypertension presented to the ER with complaints of pain and swelling of his left hand that had worsened since this morning. The patient stated that he was bitten by his pet dog on his left hand while he tried to separate his 2 fighting dogs about 4 days ago. He developed worsening pain and swelling which started this morning. denies any numbness or tingling. Denies any fevers or chills, denies any discharge from the bite site. Dog is fully vaccinated. Past Medical/Surgical History Medical Problems: (1) Amputation of left foot (2) Back pain (3) Back pain (4) Benign hypertension (5) Compression fracture (6) Compression fracture (7) Fall (8) Fall (9) Hypertension (10) Low back pain (11) Orthopedic surgery (12) Rib fractures (13) Rib fractures (14) Seizure (15) Skin tear (16) Skin tear (17) UTI Family History Patient reports no known family medical history. Social History Smoking Status: Former Smoker Smokeless Tobacco Use: No Alcohol Use: none Drug Use: none Marital Status: Housing status: lives alone Occupational Status: retired Immunizations History of Influenza Vaccine: No History of Tetanus Vaccine?: Yes History of Pneumococcal: No History of Hepatitis B Vaccine: No Allergies Coded Allergies: No Known Allergies (Verified , 01/24/18) Home Medications Scheduled Aspirin (Aspir-81), 1 TAB PO DAILY Lisinopril (Zestril), 40 MG PO DAILY Phenytoin Sodium (Dilantin), 3 CAP PO BID Scheduled PRN Ibuprofen Tab (Advil), 200-600 MG PO Q4H PRN for Pain Review of Systems Constitutional: No fever, No chills Eyes: No worsening of vision ENT: No hearing loss Respiratory: No cough, No sputum Cardiovascular: No chest pain Abdomen: No pain, No nausea Musculoskeletal: + problem reported (left hand pain and swelling) Genitourinary - Male: + urinary incontinence, No hematuria, No dysuria Neurologic: No memory loss, No paralysis, No weakness Psychiatric: No depression symptoms Physical Exam Vital Signs Date Time Temp Pulse Resp B/P (MAP) Pulse Ox O2 Delivery O2 Flow Rate FiO2 01/25/18 00:29 95 22 136/98 96 Room Air 01/24/18 23:05 99 01/24/18 23:03 98 Room Air 01/24/18 20:57 37.5 103 24 188/121 96 Room Air General Appearance: WD/WN, no apparent distress Eyes: normal inspection ENT: hearing grossly normal Neck: supple Respiratory/Chest: lungs clear, normal breath sounds, no respiratory distress Cardiovascular: regular rate, rhythm Abdomen/GI: non tender, soft Extremities/Musculoskelatal: + pertinent finding (left hand swelling with erythema and tenderness. bite aleman on dorsal and ventral aspect with no oozing. neurovascularly intact) Neurologic/Psych: alert, normal mood/affect, oriented x 3 Diagnostics Laboratory Results Results Past 24 Hours Test 01/24/18 22:55 Range/Units White Blood Count 14.61 4.8-10.8 K/uL Red Blood Count 3.67 4.7-6.1 M/uL Hemoglobin 12.7 14.0-18.0 g/dL Hematocrit 35.6 42-52 % Mean Corpuscular Volume 97.0 80-100 fL Mean Corpuscular Hemoglobin 34.6 25-34 pg Mean Corpuscular Hemoglobin Concent 35.7 32-36 g/dl Platelet Count 194 130-400 K/uL Mean Platelet Volume 9.3 7.4-10.4 fL Neutrophils (%) (Auto) 72.3 % Lymphocytes (%) (Auto) 14.9 % Monocytes (%) (Auto) 10.8 % Eosinophils (%) (Auto) 1.5 % Basophils (%) (Auto) 0.2 % Neutrophils # (Auto) 10.56 1.4-6.5 K/uL Lymphocytes # (Auto) 2.18 1.2-3.4 K/uL Monocytes # (Auto) 1.58 0.11-0.59 K/uL Eosinophils # (Auto) 0.22 0-0.5 K/uL Basophils # (Auto) 0.03 0-0.2 K/uL RDW Standard Deviation 49.3 36.4-46.3 fL RDW Coefficient of Variation 13.9 11.5-14.5 % Immature Granulocyte % (Auto) 0.3 % Immature Granulocyte # (Auto) 0.04 0.00-0.02 K/uL Sodium Level 134 136-145 mmol/L Potassium Level 3.9 3.5-5.1 mmol/L Chloride Level 104 98-107 mmol/L Carbon Dioxide Level 23 21-32 mmol/L Anion Gap 7.0 3-11 mmol/L Blood Urea Nitrogen 21 7-18 mg/dl Creatinine 1.00 0.60-1.40 mg/dl Est Creatinine Clear Calc Drug Dose 52.5 ml/min Estimated GFR () 84.4 Estimated GFR (Non- 72.8 BUN/Creatinine Ratio 21.4 10-20 Random Glucose 96 70-99 mg/dl Calcium Level 9.1 8.5-10.1 mg/dl Magnesium Level 2.0 1.8-2.4 mg/dl Total Bilirubin 0.5 0.2-1 mg/dl Direct Bilirubin 0.1 0-0.2 mg/dl Aspartate Amino Transf (AST/SGOT) 21 15-37 U/L Alanine Aminotransferase (ALT/SGPT) 42 12-78 U/L Alkaline Phosphatase 89 45-117 U/L Total Protein 8.0 6.4-8.2 gm/dl Albumin 3.8 3.4-5.0 gm/dl Phenytoin (Dilantin) Level 13.8 10-20 mcg/mL Impression Assessment and Plan 77-year-old male with a past medical history of seizure disorder, hypertension presented to the ER with complaints of pain and swelling of his left hand that had worsened since this morning. had a dog bite 4 days ago. Cellulitis sec to Dog bite : - Started on Unasyn 3g IV q6h - Vancomycin for possible MRSA - pain control with tramadol for moderate pain and morphine for breakthrough pain was - Received Adacel Seizure disorder: - Continue phenytoin 300 mg BID HTN: - Continue Zestril 40 mg Full code DVT prophylaxis: Heparin Sq Admitted to med/surg Attending addendum: I have physically seen this patient, have supervised the medical residents activities, and agree with the H&P unless as otherwise noted. Assessment and Plan: Cellulitis left upper extremity secondary to dog bite-- Continue Unasyn begun in the ED at 3 g IV every 6 hours. Add vancomycin IV per pharmacokinetic monitoring. Tylenol for mild pain, tramadol for moderate pain, morphine for severe pain. Did receive Adacel booster in ED. Notified nursing and patient to keep left arm elevated to prevent additional swelling. No signs of compartment syndrome at this time Seizure disorder-- Continue phenytoin 300 mg p.o. twice daily. Check a Dilantin level. Hypertension-- Continue lisinopril 40 mg daily with hold parameters. Advanced Directives Existing Advance Directive: No Existing Living Will: No Existing Power of Special Procedures Tech: No Resuscitation Status VTE Prophylaxis Will order VTE Prophylaxis: Yes Resident Tracking Resident Involvement: Resident Care Provided Care Provided: Adult Hospital Medicine
[2018-01-25] MEDS ORDERED: ACETAMINOPHEN 325 MG TAB PO PRN (01:00)
[2018-01-25] MEDS ORDERED: POLYETHYLENE (MIRALAX) 17 GM PACK PO PRN (01:00)
[2018-01-25] MEDS ORDERED: ONDANSETRON INJ 2 MG/ML 2 ML VIAL IV PRN (01:00)
[2018-01-25] MEDS ORDERED: PHENYTOIN 50 MG CHEW PO SCH (01:00)
[2018-01-25] MEDS ORDERED: PHENYTOIN SODIUM ER 100 MG CAP PO STA (01:05)
[2018-01-25] MEDS: MoRPHine SULFATE 4 MG/ML 1 ML CARP\\VIAL IV PRN ×3 (02:14→15:55)
[2018-01-25 02:51] VITALS: BP 168/98; PULSE 105; TEMP 36.9; O2SAT 96; Ht 175.3 cm; Wt 60.3 kg
[2018-01-25] MEDS ORDERED: VANCOMYCIN CONSULT ACTIVE PRN (03:15)
[2018-01-25] MEDS ORDERED: TRAMADOL HCL 50 MG TAB PO PRN (03:15)
[2018-01-25] MEDS ORDERED: VANCOMYCIN IV 1,500 MG in SODIUM CHLORIDE 0.9% 500ML 500 ML IV SCH (03:30)
[2018-01-25] MEDS ORDERED: PNEUMOCOCCAL ADMINISTRATION CHARGE ONE (05:00)
[2018-01-25] MEDS ORDERED: PNEUMOCOCCAL POLYSACCHARIDES 25 MCG/0.5 ML VIAL/SYR IM. ONE (05:00)
--- NOTE | 2018-01-25 05:57 | DIAGNOSTIC IMAGING REPORT ---
L HAND MIN 3 VIEWS ROUTINE CLINICAL HISTORY: dog bite trauma COMPARISON: None. DISCUSSION: Findings of generalized soft tissue edema. Generalized degenerative change throughout the articular services throughout. Soft tissue vascular calcifications. No well-defined fracture or dislocation. IMPRESSION: Soft tissue edema. Degenerative change. No acute bony abnormality. The above report was generated using voice recognition software. It may contain grammatical, syntax or spelling errors. Electronically signed by: Rajan Caceres M.D. 01/25/2018 5:56 AM Dictated Date/Time: 01/25/2018 5:55 AM
[2018-01-25 06:11] LABS: BASO % 0.2 %; BASO ABS # 0.02 K/uL (0-0.2); EOS % 1.4 %; EOS ABS # 0.15 K/uL (0-0.5); HEMATOCRIT 30.8 % (42-52); HEMOGLOBIN 10.3 g/dL (14.0-18.0); IG# 0.01 K/uL (0.00-0.02); LYMPH % 15.7 %; LYMPH ABS # 1.68 K/uL (1.2-3.4); MEAN CELL VOLUME 98.4 fL (80-100); MEAN CORPUSCULAR HEMOGLOBIN 32.9 pg (25-34); MEAN CORPUSCULAR HGB CONC 33.4 g/dl (32-36); MEAN PLATELET VOLUME 8.7 fL (7.4-10.4); MONO % 11.5 %; MONO ABS # 1.23 K/uL (0.11-0.59); NEUT % 71.1 %; NEUT ABS # 7.62 K/uL (1.4-6.5); PLATELET COUNT 162 K/uL (130-400); RED CELL DISTRIBUTION WIDTH CV 14.3 % (11.5-14.5); RED CELL DISTRIBUTION WIDTH SD 51.4 fL (36.4-46.3); WHITE BLOOD COUNT 10.71 K/uL (4.8-10.8)
[2018-01-25 06:45] LABS: CALCIUM 8.3 mg/dl (8.5-10.1); CREATININE 0.74 mg/dl (0.60-1.40); POTASSIUM 3.8 mmol/L (3.5-5.1)
[2018-01-25] MEDS: ASPIRIN 81 MG ECTAB PO SCH (08:03)
[2018-01-25] MEDS: PHENYTOIN SODIUM ER 100 MG CAP PO SCH ×2 (08:03→19:21)
[2018-01-25] MEDS: HEPARIN SOD 5000 UNIT/0.5 ML CARP SQ SCH ×3 (08:04→22:05)
[2018-01-25] MEDS: LISINOPRIL 40 MG TAB PO SCH (08:04)
[2018-01-25] MEDS: AMPICILLIN/SULBACTAM SOD INJ 3,000 MG in SODIUM CHLORIDE 0.9% 100ML 100 ML IV SCH ×3 (08:05→17:33)
[2018-01-25 08:11] VITALS: BP 117/68; PULSE 80; TEMP 36.7; O2SAT 95
[2018-01-25] MEDS ORDERED: VANCOMYCIN IV 1,000 MG in SODIUM CHLORIDE 0.9% 250ML 250 ML IV SCH ×2 (09:00→14:00)
--- NOTE | 2018-01-25 09:05 | Family Medicine Progress Note ---
Progress Note Date of Service Jan 25, 2018. Subjective Pt evaluation today including: conversation w/ patient Found patient resting comfortably earlier this morning. He recounted the events of HPI, stating that he has six dogs that he lives with in his basement. He states that his dog tend to get into fights, for which he tries to break them up, resulting multiple bruises on his forearms. This morning, he says his pain is controlled with pain medication and that the swelling and erythema seem to have improved mildly since starting his antibiotics in the emergency room. Otherwise he denies any other acute concerns. This afternoon, on re-evaluation , the patient states that his pain and swelling continued to improve. He also states that he feels safe at home, but that he may work to have one of his dogs relocated. Patient is right-handed. Constitutional: No fever, No chills Respiratory: No cough, No shortness of breath Cardiovascular: + edema (left hand), No chest pain Abdomen: No pain, No nausea, No vomiting Musculoskeletal: + see HPI, + swelling Medications Current Inpatient Medications Medications (Trade) Dose Ordered Sig/Eileen Route Start Time Stop Time Status Last Admin Dose Admin Aspirin (Ecotrin Tab) 81 mg DAILY PO 01/25/18 08:00 02/24/18 08:59 01/25/18 08:03 81 MG Lisinopril (Zestril Tab) 40 mg DAILY PO 01/25/18 08:00 02/24/18 08:59 01/25/18 08:04 40 MG Phenytoin Sodium (Dilantin Er Cap) 300 mg BID PO 01/25/18 08:00 02/24/18 08:59 01/25/18 08:03 300 MG Acetaminophen (Tylenol Tab) 650 mg Q4H PRN PO 01/25/18 01:00 02/24/18 00:59 Polyethylene (Miralax Powder Packet) 17 gm DAILY PRN PO 01/25/18 01:00 02/24/18 00:59 Ondansetron HCl (Zofran Inj) 4 mg Q6H PRN IV 01/25/18 01:00 02/24/18 00:59 Morphine Sulfate (MoRPHine SULFATE INJ) 4 mg Q4H PRN IV 01/25/18 01:00 02/08/18 00:59 01/25/18 07:43 4 MG Ampicillin Sodium/ Sulbactam Sodium 3000 mg/Sodium Chloride 108 ml @ 200 mls/hr Q6H IV 01/25/18 06:00 02/04/18 05:59 01/25/18 08:05 200 MLS/HR Tramadol HCl (Ultram Tab) 50 mg Q4H PRN PO 01/25/18 03:15 02/24/18 03:14 Miscellaneous Information (Consult) 1 ea UD PRN N/A 01/25/18 03:15 02/24/18 03:14 Heparin Sodium (Porcine) (Heparin Sq 5000 Unit/0.5ml) 5,000 unit Q8 SQ 01/25/18 06:00 02/24/18 05:59 01/25/18 08:04 5,000 UNIT Objective Vital Signs Date Time Temp Pulse Resp B/P (MAP) Pulse Ox O2 Delivery O2 Flow Rate FiO2 01/25/18 08:11 36.7 80 18 117/68 (84) 95 01/25/18 02:51 36.9 105 20 168/98 96 Room Air 01/25/18 00:29 95 22 136/98 96 Room Air 01/24/18 23:05 99 01/24/18 23:03 98 Room Air 01/24/18 20:57 37.5 103 24 188/121 96 Room Air Physical Exam Notes: General Appearance: Awake, alert & oriented, comfortable in general, NAD. CV: +S1S2 borderline but regular tachycardia, no murmur. No peripheral edema. Pulm: Clear to auscultation throughout. Abdomen: +BS, soft, non-tender, non-distended. Extremities: [On early-morning exam] Regarding the left hand, there is generalized erythema and edema from the MCP joints down to approximately two cm proximal to the wrist. These edematous areas are tender to palpation. There are small healing wounds to the thumb fat pad on the palmar aspect and two separate healing wounds along the thumb base and overlying the anatomical snuffbox dorsally. These areas have no present drainage. Patient can flex and extend his wrist approximately 15 degrees in each direction. 2+ radial pulse. Distal sensation in all left fingers intact. Separately, there are multiple bruises in various stages of healing over the bilateral forearms. Neuro: No gross neuro deficits. Laboratory Results 01/25/18 05:56 Red Blood Count 3.13, Mean Corpuscular Volume 98.4, Mean Corpuscular Hemoglobin 32.9, Mean Corpuscular Hemoglobin Concent 33.4, Mean Platelet Volume 8.7, Neutrophils (%) (Auto) 71.1, Lymphocytes (%) (Auto) 15.7, Monocytes (%) (Auto) 11.5, Eosinophils (%) (Auto) 1.4, Basophils (%) (Auto) 0.2, Neutrophils # (Auto ) 7.62, Lymphocytes # (Auto) 1.68, Monocytes # (Auto) 1.23, Eosinophils # (Auto ) 0.15, Basophils # (Auto) 0.02 01/25/18 05:56 Test 01/24/18 22:55 01/25/18 05:56 Magnesium Level 2.0 mg/dl (1.8-2.4) Total Bilirubin 0.5 mg/dl (0.2-1) Direct Bilirubin 0.1 mg/dl (0-0.2) Aspartate Amino Transf (AST/SGOT) 21 U/L (15-37) Alanine Aminotransferase (ALT/SGPT) 42 U/L (12-78) Alkaline Phosphatase 89 U/L (45-117) Total Protein 8.0 gm/dl (6.4-8.2) Albumin 3.8 gm/dl (3.4-5.0) Phenytoin (Dilantin) Level 13.8 mcg/mL (10-20) White Blood Count 10.71 K/uL (4.8-10.8) Red Blood Count 3.13 M/uL (4.7-6.1) Hemoglobin 10.3 g/dL (14.0-18.0) Hematocrit 30.8 % (42-52) Mean Corpuscular Volume 98.4 fL (80-100) Mean Corpuscular Hemoglobin 32.9 pg (25-34) Mean Corpuscular Hemoglobin Concent 33.4 g/dl (32-36) Platelet Count 162 K/uL (130-400) Mean Platelet Volume 8.7 fL (7.4-10.4) Neutrophils (%) (Auto) 71.1 % Lymphocytes (%) (Auto) 15.7 % Monocytes (%) (Auto) 11.5 % Eosinophils (%) (Auto) 1.4 % Basophils (%) (Auto) 0.2 % Neutrophils # (Auto) 7.62 K/uL (1.4-6.5) Lymphocytes # (Auto) 1.68 K/uL (1.2-3.4) Monocytes # (Auto) 1.23 K/uL (0.11-0.59) Eosinophils # (Auto) 0.15 K/uL (0-0.5) Basophils # (Auto) 0.02 K/uL (0-0.2) RDW Standard Deviation 51.4 fL (36.4-46.3) RDW Coefficient of Variation 14.3 % (11.5-14.5) Immature Granulocyte % (Auto) 0.1 % Immature Granulocyte # (Auto) 0.01 K/uL (0.00-0.02) Prothrombin Time 10.1 SECONDS (9.0-12.0) Prothromb Time International Ratio 1.0 (0.9-1.1) Anion Gap 6.0 mmol/L (3-11) Est Creatinine Clear Calc Drug Dose 72.4 ml/min Estimated GFR () 103.8 Estimated GFR (Non- 89.6 BUN/Creatinine Ratio 22.4 (10-20) Calcium Level 8.3 mg/dl (8.5-10.1) Assessment and Plan 77-year-old male admitted very early on 25 January 2018 for left hand pain and swelling s/p a dog bite four days prior. PMH: Seizure disorder, HTN. Left hand cellulitis s/p dog bite: Patient tried to break up a fight between 2 of his own vaccinated dogs 4 days prior to admission. Noted erythema and swelling transitions manager of day of admission. Started on Unasyn and vancomycin. X-ray imaging noted soft tissue swelling but no evidence of fracture or retained foreign body. Received Adacel in the emergency room. Pain controlled with tramadol and morphine. On repeat evaluation is swelling and erythema have greatly improved. Stopped the vancomycin. Orthopedic and surgery was consulted in case of need for emergent surgical prevention. They note improvement as well (see their full note). -Plan for about 24 hours of IV antibiotics and then likely transition to Augmentin PO. Seizure disorder: History of same. Continue home phenytoin 300 mg twice daily. HTN: History of same. Continue home Zestril 40 mg p.o. daily. Code status: Full code. Diet: Regular. DVT prophy: Heparin q8h. PT/OT: Deferred. Dispo: Admit to med/surg. Resident Physician Supervision Note: I interviewed and examined the patient. Discussed with Dr. Bates and agree with findings and plan as documented in the note. Any exceptions or clarifications are listed here: None Documented By: Brian Ellis feeling better hand improving safe at home vitals noted nad breathing unlabored no pallor or icterus. L hand erythema and induration no fluctuance no exudate good ROM and good cap refill dog bite hand cellulitis w sepsis present on admission - improving. unasyn --> ongoing improvement anticipate augmentin. possibly home 01/26 if improves Resident Tracking Resident Involvement: Resident Care Provided Care Provided: Adult Hospital Medicine (inpatient)
--- NOTE | 2018-01-25 09:32 | ORTHOPEDIC CONSULTATION ---
DATE OF CONSULTATION: 01/25/2018 Special attention to left hand dog bite. HISTORY OF PRESENT ILLNESS: This is a 77-year-old male who sustained a dog bite 4 days ago when he was trying to separate 2 fighting dogs. He noted pain and swelling in the left hand with a puncture wound in the left hand. Pain and swelling began approximately 1-2 days ago. He notes a dog was fully vaccinated. PAST MEDICAL HISTORY: Amputation of the left foot, hypertension, history of compression fracture, history of seizure disorder. PHYSICAL EXAMINATION: Left hand exam does show a puncture wound over the dorsal aspect of the hand in the region of the first webspace. I did not detect any fluctuance. There is no drainage. He has mild surrounding erythema. Aleman that were traced out from the maximum extent of erythema does show that it is currently decreased, smaller than the aleman. He has negative Kanavel signs. He has moderate edema over the dorsal aspect of the hand and into the fingers. I did not detect any evidence of septic joint and he has subtle motion without significant pain in his joints. No epitrochlear lymphadenopathy. Three views of the left hand shows no acute fracture or dislocation, no significant gas in the soft tissues. He has MP joint arthritis noted. ASSESSMENT: A 77-year-old male with dog bite, left hand. PLAN: At this point in time, I do not see any surgical indications. He has no evidence of abscess or septic flexor tenosynovitis. RECOMMENDATIONS: Continue antibiotics as he initially had positive response to antibiotics, Unasyn, and vancomycin. We will continue to follow him clinically. He may eat today.
--- NOTE | 2018-01-25 10:49 | Pharmacy Progress Note ---
Pharmacy Abx Initial Consult Date of Service Jan 25, 2018. Pharmacy Dosing Scope Date of Consult: 01/25/18 Consultation requested by: Dr. Youngblood Pharmacy is consulted to initiate Vancomycin IV dosing therapy, order appropriate labs and adjust drug dose/frequency. Subjective The patient is a 77 year old male admitted on Jan 25, 2018 at 00:53. Objective Height (Feet): 5 Height (Inches): 9.00 Weight (Kilograms): 60.300 Vital Signs (Past 12Hrs) Vital Signs Past 12 Hours Date Time Temp Pulse Resp B/P (MAP) Pulse Ox O2 Delivery O2 Flow Rate FiO2 01/25/18 08:11 36.7 80 18 117/68 (84) 95 01/25/18 08:00 Room Air 01/25/18 02:51 36.9 105 20 168/98 96 Room Air 01/25/18 00:29 95 22 136/98 96 Room Air 01/24/18 23:05 99 01/24/18 23:03 98 Room Air Lab Results (24Hrs) Laboratory Tests (24 Hours) Test 01/25/18 05:56 White Blood Count 10.71 K/uL (4.8-10.8) Red Blood Count 3.13 M/uL (4.7-6.1) L Hemoglobin 10.3 g/dL (14.0-18.0) L Hematocrit 30.8 % (42-52) L Mean Corpuscular Volume 98.4 fL (80-100) Mean Corpuscular Hemoglobin 32.9 pg (25-34) Mean Corpuscular Hemoglobin Concent 33.4 g/dl (32-36) Platelet Count 162 K/uL (130-400) Mean Platelet Volume 8.7 fL (7.4-10.4) Neutrophils (%) (Auto) 71.1 % Lymphocytes (%) (Auto) 15.7 % Monocytes (%) (Auto) 11.5 % Eosinophils (%) (Auto) 1.4 % Basophils (%) (Auto) 0.2 % Neutrophils # (Auto) 7.62 K/uL (1.4-6.5) H Lymphocytes # (Auto) 1.68 K/uL (1.2-3.4) Monocytes # (Auto) 1.23 K/uL (0.11-0.59) H Eosinophils # (Auto) 0.15 K/uL (0-0.5) Basophils # (Auto) 0.02 K/uL (0-0.2) Assessment & Plan Assessment 77 year old male admitted for pain, swelling of left hand d/t dog bite. Plan Vancomycin for treatment of Cellulitis Vancomycin IV * Loading dose: 1500 mg (25 mg/kg) * Estimated PK parameters: Vd = 0.7 L/kg, Ke = 0.064/hr, t1/2 = 10.8 hrs * Maintenance dose: Vancomycin 1000 mg IV (16mg/kg) every 16 hours * Goal trough level for Cellulitis: ~15 mcg/mL * Trough Vanco level ordered for 01/27/18 before dose at 1400. Pharmacy will continue to follow and will adjust dose/frequency as necessary. Thank you.
[2018-01-25 15:31] VITALS: BP 118/70; PULSE 72; TEMP 36.7; O2SAT 97
[2018-01-25 22:58] VITALS: BP 175/92; PULSE 86; TEMP 36.9; O2SAT 97
[2018-01-26 00:18] VITALS: BP 157/73; PULSE 78
[2018-01-26] MEDS: AMPICILLIN/SULBACTAM SOD INJ 3,000 MG in SODIUM CHLORIDE 0.9% 100ML 100 ML IV SCH ×3 (00:22→12:40)
[2018-01-26] MEDS: MoRPHine SULFATE 4 MG/ML 1 ML CARP\\VIAL IV PRN (00:22)
[2018-01-26] MEDS: HEPARIN SOD 5000 UNIT/0.5 ML CARP SQ SCH ×2 (05:35→12:52)
[2018-01-26 07:09] LABS: BASO % 0.6 %; BASO ABS # 0.03 K/uL (0-0.2); EOS % 5.4 %; EOS ABS # 0.29 K/uL (0-0.5); HEMATOCRIT 30.3 % (42-52); HEMOGLOBIN 10.4 g/dL (14.0-18.0); IG# 0.02 K/uL (0.00-0.02); LYMPH % 24.3 %; LYMPH ABS # 1.31 K/uL (1.2-3.4); MEAN CELL VOLUME 98.7 fL (80-100); MEAN CORPUSCULAR HEMOGLOBIN 33.9 pg (25-34); MEAN CORPUSCULAR HGB CONC 34.3 g/dl (32-36); MEAN PLATELET VOLUME 9.1 fL (7.4-10.4); MONO % 10.4 %; MONO ABS # 0.56 K/uL (0.11-0.59); NEUT % 58.9 %; NEUT ABS # 3.18 K/uL (1.4-6.5); PLATELET COUNT 164 K/uL (130-400); RED CELL DISTRIBUTION WIDTH CV 14.1 % (11.5-14.5); RED CELL DISTRIBUTION WIDTH SD 50.5 fL (36.4-46.3); WHITE BLOOD COUNT 5.39 K/uL (4.8-10.8)
[2018-01-26 07:16] VITALS: BP 141/78; PULSE 70; TEMP 36.4; O2SAT 97
[2018-01-26 07:38] LABS: CALCIUM 8.5 mg/dl (8.5-10.1); CREATININE 0.68 mg/dl (0.60-1.40); POTASSIUM 3.9 mmol/L (3.5-5.1)
[2018-01-26 08:00] VITALS: O2SAT 97
[2018-01-26] MEDS: PHENYTOIN SODIUM ER 100 MG CAP PO SCH (08:10)
[2018-01-26] MEDS: LISINOPRIL 40 MG TAB PO SCH (08:11)
[2018-01-26] MEDS: ASPIRIN 81 MG ECTAB PO SCH (08:11)
--- NOTE | 2018-01-26 12:57 | Discharge Instructions ---
Discharge Instructions Date of Service Jan 26, 2018. Admission Reason for Admission: Cellulitis Of Upper Extrem, Dog Bite Of Left Hand Discharge Discharge Diagnosis / Problem: L hand cellulitis s/p dog bite Discharge Goals Goal(s): Decrease discomfort, Diagnostic testing, Therapeutic intervention Activity Recommendations Activity Limitations: resume your previous activity . Instructions / Follow-Up Instructions / Follow-Up Mr. Micha sexton were admitted for left hand skin infection after you got bitten by your dog. You received antibiotics and your infection improved. You are being discharged with another 8 days of antibiotics to take at home. Please follow the following instructions: -Take Augmentin 875 mg twice a day for 8 days total -Follow up with your primary care doctor in 1-2 days following discharge -If you notice worsening redness, pain or swelling of your hand or arm, please see your doctor or go to the nearest emergency room -Continue taking your home medications as prescribed for your seizure disorder and high blood pressure Current Hospital Diet Patient's current hospital diet: Regular Diet Discharge Diet Recommended Diet: Regular Diet, AHA Diet (Heart Healthy) Pending Studies Studies pending at discharge: no Medical Emergencies . Who to Call and When: Medical Emergencies: If at any time you feel your situation is an emergency, please call 911 immediately. . Non-Emergent Contact Non-Emergency issues call your: Primary Care Provider . . "Provider Documentation" section prepared by [facility]. .
[2018-01-26] MEDS ORDERED: AMOX875T PO (13:26)
--- NOTE | 2018-01-26 13:39 | Orthopedic Progress Note ---
Orthopedic Progress Note Date of Service Jan 26, 2018. Subjective Reports: feeling well Additional Notes: PATIENT HAS NOTED SIGNIFICANT DECREASE IN PAIN, SWELLING, AND REDNESS. Objective calves soft nontender, N/V intact, capillary refill less than 2 sec., A&O x3 PUNCTURE WOUNDS NOTED ON THE DORSUM OF THE HAND WELL ONE ALONG THE PALMAR SURFACE. NO ERYTHEMA, NO DRAINAGE. OVERALL ERYTHEMA IS ESSENTIALLY RESOLVED. VERY LITTLE SWELLING NOTED. PATIENT HAS FULL ROM WITHOUT PAIN. DENIES NUMBNESS/ TINGLING. Date Time Temp Pulse Resp B/P (MAP) Pulse Ox O2 Delivery O2 Flow Rate FiO2 01/26/18 08:00 97 Room Air 01/26/18 07:16 36.4 70 18 141/78 (99) 97 Room Air 01/26/18 00:32 Room Air 01/26/18 00:18 78 157/73 (101) 01/25/18 22:58 36.9 86 16 175/92 (119) 97 Room Air 01/25/18 19:15 Room Air 01/25/18 16:00 Room Air 01/25/18 15:31 36.7 72 18 118/70 (86) 97 Laboratory Results 24 Hours: Test 01/26/18 06:20 White Blood Count 5.39 K/uL Red Blood Count 3.07 M/uL Hemoglobin 10.4 g/dL Hematocrit 30.3 % Mean Corpuscular Volume 98.7 fL Mean Corpuscular Hemoglobin 33.9 pg Mean Corpuscular Hemoglobin Concent 34.3 g/dl Platelet Count 164 K/uL Mean Platelet Volume 9.1 fL Neutrophils (%) (Auto) 58.9 % Lymphocytes (%) (Auto) 24.3 % Monocytes (%) (Auto) 10.4 % Eosinophils (%) (Auto) 5.4 % Basophils (%) (Auto) 0.6 % Neutrophils # (Auto) 3.18 K/uL Lymphocytes # (Auto) 1.31 K/uL Monocytes # (Auto) 0.56 K/uL Eosinophils # (Auto) 0.29 K/uL Basophils # (Auto) 0.03 K/uL Assessment & Plan Assessment: DOG BITE LEFT HAND Plan: PATIENT SEEMS TO BE RESPONDING APPROPRIATELY TO IV ABX. NO SURGICAL TREATMENT IS INDICATED. ORTHOPEDICS WILL SIGN OFF. PATIENT ONLY NEEDS TO FOLLOW ON A PRN BASIS. THANK YOU.
[2018-01-26 14:12] VITALS: BP 141/78; PULSE 70; TEMP 36.4; O2SAT 97
[2018-01-26] MEDS ORDERED: AMOXICILLIN/CLAVULANATE TAB 875 MG TAB PO ONE (14:30)
--- NOTE | 2018-01-26 16:44 | Discharge Summary ---
Discharge Summary Date of Service Jan 26, 2018. Discharge Summary Admission Date: Jan 25, 2018 at 00:53 Discharge Date: Jan 26, 2018 Discharge Disposition: Home Principal Diagnosis: L hand cellulitis 2/2 dog bite Problems/Secondary Diagnoses: Seizure disorder HTN Immunizations: Have You Had Influenza Vaccine: No History of Tetanus Vaccine?: Yes History of Pneumococcal: No History of Hepatitis B Vaccine: No Procedures: L HAND MIN 3 VIEWS ROUTINE CLINICAL HISTORY: dog bite trauma COMPARISON: None. DISCUSSION: Findings of generalized soft tissue edema. Generalized degenerative change throughout the articular services throughout. Soft tissue vascular calcifications. No well-defined fracture or dislocation. IMPRESSION: Soft tissue edema. Degenerative change. No acute bony abnormality. Consultations: Orthopedics Medication Reconciliation New Medications: Amoxicillin & Pot Clavulanate (Augmentin 875-125 mg) 1 Tab Tab 1 TAB PO BID for 8 Days, #16 TAB NS Continued Medications: Aspirin (Aspir-81) 81 Mg Tab 1 TAB PO DAILY for 30 Days, #30 TAB 5 Refills Ibuprofen Tab (Advil) 200 Mg Tab 200-600 MG PO Q4H PRN for Pain, TAB Lisinopril (Zestril) 40 Mg Tab 40 MG PO DAILY Phenytoin Sodium (Dilantin) 100 Mg Cap 3 CAP PO BID for 30 Days, #180 CAP 2 Refills Discharge Exam Review of Systems: Constitutional: No fever, No chills Respiratory: No shortness of breath Cardiovascular: No chest pain Abdomen: No pain, No nausea, No vomiting, No diarrhea, No constipation Genitourinary - Female: No dysuria Genitourinary - Male: No dysuria Integumentary: + problem reported (healing L hand dog bite/cellulitis ) Physical Exam: Eyes: normal inspection Neck: supple Respiratory/Chest: lungs clear, normal breath sounds Cardiovascular: regular rate, rhythm, no murmur Abdomen / GI: normal bowel sounds, non tender, soft Neurologic/Psychiatric: alert, oriented x 3 Skin: + pertinent finding (L hand/forearm mild pain and erythema, trace edema and warmth (improving)) Hospital Course 77-year-old male admitted on 25 January 2018 for left hand pain and swelling s/p a dog bite four days prior. Tried to break up a fight between 2 of his own vaccinated dogs. PMH: Seizure disorder, HTN. Left hand cellulitis s/p dog bite: -X-ray imaging- soft tissue swelling but no evidence of fracture or retained foreign body. -Received Adacel in the emergency room. -Pain controlled with tramadol and morphine. -Orthopedic and surgery was consulted in case of need for emergent surgical prevention. -Received Unasyn x 2 days -Dced with Augmentin 875mg BID x 8 days Seizure disorder: Continued home phenytoin 300 mg twice daily HTN: Continued home Zestril 40 mg p.o. daily. Code status: Full code. DVT prophy: Heparin q8h. Resident Physician Supervision Note: I was present with Dr. Sparks during the history and exam. I discussed the case with the resident and agree with the findings and plan as documented in the note. Any exceptions or clarifications are listed here: Patient well known to me from the outpatient office. He is without complaint today. He describes marked improvement in the pain, redness, and swelling compared to yesterday. He is having no difficulty with tolerating food (no nausea), so should do well with PO Augmentin. Emphasized the things to watch for and need to follow up in the office or ED if needed. The patient's son was present for this discussion. Documented By: Rodolfo Crum Total Time Spent: Less than 30 minutes This includes examination of the patient, discharge planning, medication reconciliation, and communication with other providers. Discharge Instructions Please refer to the electronic Patient Visit Report (Discharge Instructions) for additional information. Additional Copies To Rodolfo Crum D.O.
[2018-01-27] MEDS ORDERED: VANCOMYCIN TROUGH ONE (13:30)
== END 2018-01-26 14:35 | disposition home or self-care (01) | DRG 872 ==
LOC: C.EDB 20:56 → C.MS4W 01-25 00:53 → ENRESERV 01-25 01:16
PROVIDERS: ADMIT Family Medicine; ATTEND Hospitalist
DX: A41.9 Sepsis, unspecified organism (principal); L03.114 Cellulitis of left upper limb; G40.909 Epilepsy, unspecified, not intractable, without status epilepticus; S61.452A Open bite of left hand, initial encounter; I10 Essential (primary) hypertension; Z89.432 Acquired absence of left foot; Z87.440 Personal history of urinary (tract) infections; Z87.891 Personal history of nicotine dependence; Z79.82 Long term (current) use of aspirin; W54.0XXA Bitten by dog, initial encounter

== ENCOUNTER 2019-03-22 19:19 | Inpatient (IN) ==
--- OUTSIDE RECORDS SUMMARY | 2019-03-22 19:23 | External Medical Summary | Continuity of Care Document ---
:1940 Author Name Leah Mcknight, Provider Address Unavailable Unavailable , Care Team Providers Name Role Phone Unavailable Unavailable Unavailable FARHAN HENLEY Unavailable Unavailable Problems Hypertension (401.9) (I10) Melanoma (172.9) (C43.9) Allergies and Adverse Reactions No Known Drug Allergies (Allergy) Medications Aspirin 81 MG Oral Tablet Delayed Release; TAKE 1 TABLET INGRID CRUZ M.D. Start: 11-Sep-2018 Refills: 0 Lisinopril 40 MG Oral Tablet; TAKE 1 TABLET DAILY ABDOULAYE Sena M.D. Start: 11-Sep-2018 Refills: 0 30 Tablet Bottle Dilantin 100 MG Oral Capsule; TAKE 1 CAPSULE 3 TIMES DAILYJuan Luis Boucher Start: 11-Sep-2018 Refills: 0 Procedures Procedures not documented Immunizations Immunizations not documented Family History Mother Family history of Status: Active Father Family history of Status: Active Social History - Smoking Status Never smoker Plan of Treatment Planned Observations Planned Goals not documented Results No Known Results Results not documented Encounters Appointment; Saeid Carlson DO 11-Sep-2018 9:10 Encounter Diagnosis: Problem not documented
[2019-03-22] MEDS ORDERED: VANCOMYCIN HCL 1,250 MG in SODIUM CHLORIDE 0.9% 500 ML IV ONE (20:40)
[2019-03-22] MEDS ORDERED: VANCOMYCIN CONSULT ACTIVE PRN (20:40)
[2019-03-22] MEDS ORDERED: cefTRIAXone SODIUM 1,000 MG/50 ML BAG IV STA (20:43)
[2019-03-22] MEDS ORDERED: SODIUM CHLORIDE 0.9% 500 ML IV SCH (20:45)
[2019-03-22] MEDS: MoRPHine SULFATE 4 MG/ML 1 ML CARP\\VIAL IV STA (21:08)
--- NOTE | 2019-03-22 21:36 | XRay Report ---
XR wrist RT min 3V routine CLINICAL HISTORY: wound pain. Infection. COMPARISON: None. DISCUSSION: Considerable degenerative change. Findings of calcification of the triangle fibrocartilag e as well as cartilaginous regions consistent with chondrocalcinosis. Soft tissue vascular calcificat ion. Mild dorsal soft tissue edema. No well-defined lytic or blastic process. IMPRESSION: Dorsal soft tissue edema. Degenerative change. No acute bony abnormality. The above report was generated using voice recognition software. It may contain grammatical, syntax or spelling errors. Electronically signed by: Rajan Caceres M.D. 03/22/2019 9:34 PM
[2019-03-22] MEDS ORDERED: MoRPHine SULFATE 4 MG/ML 1 ML CARP\\VIAL IV STA (22:16)
[2019-03-22] MEDS ORDERED: KETOROLAC TROMETHAMINE 15 MG/ML VIAL IV STA (22:16)
[2019-03-22 22:21] LABS: Basophils # (auto) 0.02 K/uL (0-0.2); Basophils % (auto) 0.3 %; Eosinophils # (auto) 0.08 K/uL (0-0.5); Hematocrit (blood only) 27.1 % (42-52); Hemoglobin 9.3 g/dL (14.0-18.0); Immature Granulocytes # (auto) 0.01 K/uL (0.00-0.02); Immature Granulocytes % (auto) 0.1 %; Lymphocytes # (auto) 2.06 K/uL (1.2-3.4); Lymphocytes % (auto) 25.8 %; Mean Corpuscular Hgb Conc 34.3 g/dL (32-36); Mean Corpuscular Volume 93.1 fL (80-100); Mean Platelet Volume 8.6 fL (7.4-10.4); Monocytes # (auto) 0.77 K/uL (0.11-0.59); Monocytes % (auto) 9.6 %; Neutrophils # (auto) 5.05 K/uL (1.4-6.5); Neutrophils % (auto) 63.2 %; Platelet Count 205 K/uL (130-400); RDW Coefficient of Variation 14.2 % (11.5-14.5); RDW Standard Deviation 48.4 fL (36.4-46.3); Red Blood Count 2.91 M/uL (4.7-6.1); White Blood Count 7.99 K/uL (4.8-10.8)
[2019-03-22 22:34] LABS: Prothrombin Time 10.2 Seconds (9.0-12.0)
[2019-03-22 22:38] LABS: Albumin Level 3.2 gm/dl (3.4-5.0); BUN Creatinine Ratio 25.7 (10-20); Calcium 8.6 mg/dl (8.5-10.1); Creatinine Clr Calc Pharmacy 38.6 ml/min; Est GFR (African American) 57.8; Est GFR (Non-African American) 49.8; Potassium 4.1 mmol/L (3.5-5.1)
[2019-03-22 22:41] LABS: Bilirubin,Total 0.2 mg/dl (0.2-1); Globulin 3.3 gm/dl (2.5-4.0); Total Protein 6.5 gm/dl (6.4-8.2)
--- NOTE | 2019-03-22 22:49 | Emergency Department Note ---
Entered by Jackie Hubbard acting as a scribe for Sharath Carrizales M.D. History of Present Illness General Chief complaint: Infection Stated complaint: infected hand after surgery Source: patient History of Present Illness Onset (ago): day(s) 3 Location: upper extremity and right Pain Consistency: + other (worsening) Maximum Pain Intensity: 10 Quality: + other (infection) Associated symptoms: + fever/chills (+ chills, - fevers) The patient is a 78 year old male who presents to the Emergency Room with complaints of worsening right hand pain that started 3 days ago. The patient rates his pain a 10/10 in severity. He reports he had a lesion removed by Dr. Pelayo 4 days ago. He states the area around the incision site is very painful, red, and swollen. The patient also complains of chills. Home Medications Home Medications Medication Instructions Recorded Confirmed Type aspirin 81 mg PO QPM 09/18/18 03/22/19 History ibuprofen 200 - 600 mg PO QID PRN 09/18/18 03/22/19 History lisinopril 40 mg PO QAM 09/18/18 03/22/19 History phenytoin sodium extended 300 mg PO TID 09/18/18 03/22/19 History [Dilantin Extended] cephalexin [Keflex] 500 mg PO TID 03/22/19 03/22/19 History dutasteride [Avodart] 0.5 mg PO DAILY 03/22/19 03/22/19 History tamsulosin [Flomax] 0.4 mg PO DAILY 03/22/19 03/22/19 History Allergies Allergy/AdvReac Type Severity Reaction Status Date / Time No Known Allergies Allergy Verified 09/18/18 13:46 Past Med/Surg History Medical History Hx of seizure disorder last seizure 15 yr ago Hypertension Malignant melanoma current issue on left side Surgical History History of cataract surgery both eyes History of open reduction and internal fixation (ORIF) procedure right - as child Hx of amputation of foot left Hx of colonoscopy Social History Preferred Language: Uzbek Communication Ability: Effective Beliefs That Will Affect Care: None Current Living Situation: Spouse Feels Safe at Home: Yes Smoking Status: Former smoker Hx Alcohol Use: Yes (PER DAUGHTER) Alcohol type: beer Hx Substance Use: No Review of Systems See HPI for pertinent positives & negatives. and A total of 10 systems reviewed and were otherwise negative Physical Exam Vital Signs Vital Signs - 24 hr 03/22/19 19:33 03/22/19 21:43 03/22/19 22:45 Temperature 37 C Temperature Source Oral Sepsis Recent Fever Within 48 Hours No Sepsis New/Unexplained Change in Mental Status No Sepsis Action Taken by Nursing No Action Required Pulse Rate 90 Pulse Rate [Right Finger] 89 78 Respiratory Rate 18 19 19 Blood Pressure 144/79 H Blood Pressure [Left Arm] 152/99 H 153/99 H Blood Pressure Mean 100 Blood Pressure Mean [Left Arm] 116 117 Pulse Oximetry 96 99 99 Oxygen Delivery Method 03/22/19 23:41 03/23/19 00:26 Temperature Temperature Source Sepsis Recent Fever Within 48 Hours Sepsis New/Unexplained Change in Mental Status Sepsis Action Taken by Nursing Pulse Rate Pulse Rate [Right Finger] 75 Respiratory Rate 20 20 Blood Pressure Blood Pressure [Left Arm] 171/99 H 171/99 H Blood Pressure Mean Blood Pressure Mean [Left Arm] 123 123 Pulse Oximetry 99 97 Oxygen Delivery Method Room Air GENERAL: Awake, alert, uncomfortable appearing, in no distress HENT: Normocephalic, atraumatic. Oropharynx unremarkable. EYES: Normal conjunctiva. Sclera non-icteric. NECK: Supple. No nuchal rigidity. RESPIRATORY: Clear to auscultation. No wheezes. Normal respiratory effort. CARDIAC: Normal rate. Normal rhythm. Extremities warm and well perfused. GI: Soft, non-distended. No tenderness to palpation. No rebound or guarding. No masses. RECTAL: Deferred. MUSCULOSKELETAL: Atraumatic. Chest examination reveals no tenderness. There is no CVA tenderness to palpation. UPPER EXTREMITIES: 2cm right wrist incision sutured with surrounding erythema an d tenderness. No crepitus. Intact distal sensation. Slight purulence from wound. LOWER EXTREMITIES: Calves are equal size bilaterally and non-tender. No edema NEURO: Normal sensorium. No sensory or motor deficits noted. No facial droop. SKIN: Warm and dry. No rash or jaundice noted. Course 2031: The patient was evaluated in room B9. A complete history and physical exam was performed. 2244: I consulted with Alexy Meza about the patient's case. He agrees with the treatment plan. 2250: I discussed the patient's case with Dr. Rasmussen, [facility] Hospialist. He agrees to evaluate the patient. Consultations Consultation #1: I consulted with Aleyx Meza about the patient's case. He agrees with the treatment plan. Time: 22:45 Consultation #2: I discussed the patient's case with Dr. Rasmussen, [facility] Hospialist. He agrees to evaluate the patient. Time: 22:50 Administered Medications Ioversol (Optiray 320 100ml) 95 ml IV ONCE PRN PRN Reason: Interaction Checking Stop: 03/26/19 23:21 Last Admin: 03/22/19 23:22 Dose: 95 ml Documented by: [id number] Discontinued Medications Ceftriaxone Sodium (Rocephin) 1,000 mg in 50 mls @ 100 mls/hr IV NOW STA Stop: 03/22/19 21:12 Last Infusion: 03/22/19 21:41 Dose: 0 mls/hr Documented by: [id number] Admin: 03/22/19 21:08 Dose: 100 mls/hr Documented by: [id number] Sodium Chloride (Nss) 500 mls @ 999 mls/hr IV .Q31M BOOGIE Stop: 03/22/19 21:15 Last Infusion: 03/22/19 21:41 Dose: 0 mls/hr Documented by: [id number] Admin: 03/22/19 21:09 Dose: 999 mls/hr Documented by: [id number] Vancomycin HCl 1,250 mg/ (Sodium Chloride) 525 mls @ 200 mls/hr IV NOW ONE; Protocol Stop: 03/22/19 23:17 Last Infusion: 03/23/19 00:25 Dose: 0 mls/hr Documented by: [id number] Admin: 03/22/19 21:41 Dose: 200 mls/hr Documented by: [id number] Ketorolac Tromethamine (Toradol) 15 mg IV NOW STA Stop: 03/22/19 22:17 Last Admin: 03/22/19 22:44 Dose: 15 mg Documented by: [id number] Morphine Sulfate (Morphine Sulfate) 4 mg IV NOW STA Stop: 03/22/19 20:39 Last Admin: 03/22/19 21:08 Dose: 4 mg Documented by: [id number] Admin: 03/22/19 21:08 Dose: 4 mg Documented by: [id number] Morphine Sulfate (Morphine Sulfate) 4 mg IV NOW STA Stop: 03/22/19 22:17 Last Admin: 03/22/19 22:44 Dose: 4 mg Documented by: [id number] Medical Decision Making Differential Diagnosis Etiologies such as cellulitis, abscess, MRSA infection, DVT, necrotizing fasciitis, dermatitis, drug eruption, as well as others were entertained. Medical Records Attestation: I reviewed the patient's medical records. Home Medications Current Medication List: was personally reviewed by me Laboratory Data Attestation: I reviewed the patient's lab results. Result diagrams: 03/22/19 22:07 03/22/19 22:07 Lab Results 03/22/19 03/22/19 03/22/19 Range/Units 20:56 20:56 20:56 WBC Cancelled RBC Cancelled Hgb Cancelled Hct Cancelled MCV Cancelled MCH Cancelled MCHC Cancelled RDW Std Deviation Cancelled RDW Coeff of Lexie Cancelled Plt Count Cancelled MPV Cancelled Immature Gran % (Auto) Cancelled Neut % (Auto) Cancelled Lymph % (Auto) Cancelled Bulloch % (Auto) Cancelled Eos % (Auto) Cancelled Baso % (Auto) Cancelled Immature Gran # (Auto) Cancelled Neut # (Auto) Cancelled Lymph # (Auto) Cancelled Bulloch # (Auto) Cancelled Eos # (Auto) Cancelled Baso # (Auto) Cancelled Absolute Nucleated RBC Cancelled Nucleated RBC % (auto) Cancelled Neutrophils % (Manual) Cancelled Band Neutrophils % Cancelled Lymphocytes % (Manual) Cancelled Prolymphocyte % Cancelled Reactive Lymphs % (Man) Cancelled Monocytes % (Manual) Cancelled Eosinophils % (Manual) Cancelled Basophils % (Manual) Cancelled Metamyelocytes % (Man) Cancelled Myelocytes % (Man) Cancelled Promyelocytes % (Man) Cancelled Blast Cells % (Manual) Cancelled Plasma Cell % (Manual) Cancelled Other Cells % Cancelled Nucleated RBC % Cancelled Neutrophils # (Manual) Cancelled Band Neutrophils # Cancelled Total Absolute Neuts Cancelled Lymphocytes # (Manual) Cancelled Prolymphocyte # Cancelled Reactive Lymphs # Cancelled Total Abs Lymphocytes Cancelled Monocytes # (Manual) Cancelled Eosinophils # (Manual) Cancelled Basophils # (Manual) Cancelled Metamyelocytes # (Man) Cancelled Myelocytes # (Manual) Cancelled Promyelocytes # (Man) Cancelled Blast Cells # (Man) Cancelled Plasma Cell # (Manual) Cancelled Other Cells # Cancelled Nucleated RBCs # (Man) Cancelled Hypersegmented Neuts Cancelled Hyposegmented Neuts Cancelled Hypogranular Neuts Cancelled Large Granular Lymphs Cancelled # Lrg Granular Lymphs Cancelled Hairy Cells Cancelled Smudge Cells Cancelled Toxic Granulation Cancelled Toxic Vacuolation Cancelled Dohle Bodies Cancelled Lamar Rods Cancelled Platelet Estimate Cancelled Hypogranular Platelets Cancelled Clumped Platelets Cancelled Giant Platelets Cancelled Platelet Satelliting Cancelled RBC Morphology Cancelled Polychromasia Cancelled Hypochromasia Cancelled Poikilocytosis Cancelled Basophilic Stippling Cancelled Anisocytosis Cancelled Microcytosis Cancelled Macrocytosis Cancelled Spherocytes Cancelled Pappenheimer Bodies Cancelled Sickle Cells Cancelled Target Cells Cancelled Tear Drop Cells Cancelled Ovalocytes Cancelled Stomatocytes Cancelled [place] Bodies Cancelled Echinocytes Cancelled Acanthocytes (Spur) Cancelled Rouleaux Cancelled RBC Agglutinates Cancelled Schistocytes Cancelled RBC Morph Comment Cancelled Sezary Cell Cancelled PT Cancelled INR Cancelled Sodium Cancelled Potassium Cancelled Chloride Cancelled Carbon Dioxide Cancelled Anion Gap Cancelled BUN Cancelled Creatinine Cancelled Est Cr Clr Drug Dosing Cancelled Est GFR ( Amer) Cancelled Est GFR (Non-Af Amer) Cancelled BUN/Creatinine Ratio Cancelled Glucose Cancelled POC Lactic Acid [place] (0.90-1.70) mmol/L Calcium Cancelled Total Bilirubin Cancelled AST Cancelled ALT Cancelled Alkaline Phosphatase Cancelled Total Protein Cancelled Albumin Cancelled Globulin Cancelled Albumin/Globulin Ratio Cancelled 03/22/19 03/22/19 03/22/19 Range/Units 20:59 22:07 22:07 WBC 7.99 RBC 2.91 L Hgb 9.3 L Hct 27.1 L MCV 93.1 MCH 32.0 MCHC 34.3 RDW Std Deviation 48.4 H RDW Coeff of Lexie 14.2 Plt Count 205 MPV 8.6 Immature Gran % (Auto) 0.1 Neut % (Auto) 63.2 Lymph % (Auto) 25.8 Bulloch % (Auto) 9.6 Eos % (Auto) 1.0 Baso % (Auto) 0.3 Immature Gran # (Auto) 0.01 Neut # (Auto) 5.05 Lymph # (Auto) 2.06 Bulloch # (Auto) 0.77 H Eos # (Auto) 0.08 Baso # (Auto) 0.02 Absolute Nucleated RBC Nucleated RBC % (auto) Neutrophils % (Manual) Band Neutrophils % Lymphocytes % (Manual) Prolymphocyte % Reactive Lymphs % (Man) Monocytes % (Manual) Eosinophils % (Manual) Basophils % (Manual) Metamyelocytes % (Man) Myelocytes % (Man) Promyelocytes % (Man) Blast Cells % (Manual) Plasma Cell % (Manual) Other Cells % Nucleated RBC % Neutrophils # (Manual) Band Neutrophils # Total Absolute Neuts Lymphocytes # (Manual) Prolymphocyte # Reactive Lymphs # Total Abs Lymphocytes Monocytes # (Manual) Eosinophils # (Manual) Basophils # (Manual) Metamyelocytes # (Man) Myelocytes # (Manual) Promyelocytes # (Man) Blast Cells # (Man) Plasma Cell # (Manual) Other Cells # Nucleated RBCs # (Man) Hypersegmented Neuts Hyposegmented Neuts Hypogranular Neuts Large Granular Lymphs # Lrg Granular Lymphs Hairy Cells Smudge Cells Toxic Granulation Toxic Vacuolation Dohle Bodies Lamar Rods Platelet Estimate Hypogranular Platelets Clumped Platelets Giant Platelets Platelet Satelliting RBC Morphology Polychromasia Hypochromasia Poikilocytosis Basophilic Stippling Anisocytosis Microcytosis Macrocytosis Spherocytes Pappenheimer Bodies Sickle Cells Target Cells Tear Drop Cells Ovalocytes Stomatocytes [place] Bodies Echinocytes Acanthocytes (Spur) Rouleaux RBC Agglutinates Schistocytes RBC Morph Comment Sezary Cell PT 10.2 INR 1.0 Sodium Potassium Chloride Carbon Dioxide Anion Gap BUN Creatinine Est Cr Clr Drug Dosing Est GFR ( Amer) Est GFR (Non-Af Amer) BUN/Creatinine Ratio Glucose POC Lactic Acid Talat 2.00 H (0.90-1.70) mmol/L Calcium Total Bilirubin AST ALT Alkaline Phosphatase Total Protein Albumin Globulin Albumin/Globulin Ratio 03/22/19 Range/Units 22:07 WBC RBC Hgb Hct MCV MCH MCHC RDW Std Deviation RDW Coeff of Lexie Plt Count MPV Immature Gran % (Auto) Neut % (Auto) Lymph % (Auto) Bulloch % (Auto) Eos % (Auto) Baso % (Auto) Immature Gran # (Auto) Neut # (Auto) Lymph # (Auto) Bulloch # (Auto) Eos # (Auto) Baso # (Auto) Absolute Nucleated RBC Nucleated RBC % (auto) Neutrophils % (Manual) Band Neutrophils % Lymphocytes % (Manual) Prolymphocyte % Reactive Lymphs % (Man) Monocytes % (Manual) Eosinophils % (Manual) Basophils % (Manual) Metamyelocytes % (Man) Myelocytes % (Man) Promyelocytes % (Man) Blast Cells % (Manual) Plasma Cell % (Manual) Other Cells % Nucleated RBC % Neutrophils # (Manual) Band Neutrophils # Total Absolute Neuts Lymphocytes # (Manual) Prolymphocyte # Reactive Lymphs # Total Abs Lymphocytes Monocytes # (Manual) Eosinophils # (Manual) Basophils # (Manual) Metamyelocytes # (Man) Myelocytes # (Manual) Promyelocytes # (Man) Blast Cells # (Man) Plasma Cell # (Manual) Other Cells # Nucleated RBCs # (Man) Hypersegmented Neuts Hyposegmented Neuts Hypogranular Neuts Large Granular Lymphs # Lrg Granular Lymphs Hairy Cells Smudge Cells Toxic Granulation Toxic Vacuolation Dohle Bodies Lamar Rods Platelet Estimate Hypogranular Platelets Clumped Platelets Giant Platelets Platelet Satelliting RBC Morphology Polychromasia Hypochromasia Poikilocytosis Basophilic Stippling Anisocytosis Microcytosis Macrocytosis Spherocytes Pappenheimer Bodies Sickle Cells Target Cells Tear Drop Cells Ovalocytes Stomatocytes [place] Bodies Echinocytes Acanthocytes (Spur) Rouleaux RBC Agglutinates Schistocytes RBC Morph Comment Sezary Cell PT INR Sodium 142 Potassium 4.1 Chloride 112 H Carbon Dioxide 20 L Anion Gap 10.0 BUN 35 H Creatinine 1.36 Est Cr Clr Drug Dosing 38.6 Est GFR ( Amer) 57.8 Est GFR (Non-Af Amer) 49.8 BUN/Creatinine Ratio 25.7 H Glucose 84 POC Lactic Acid Talat (0.90-1.70) mmol/L Calcium 8.6 Total Bilirubin 0.2 AST 20 ALT 29 Alkaline Phosphatase 80 Total Protein 6.5 Albumin 3.2 L Globulin 3.3 Albumin/Globulin Ratio 1.0 Imaging Data Radiologist's Impression: Radiology results as stated below per my review and the radiologist's interpretation: XR wrist RT min 3V routine CLINICAL HISTORY: wound pain. Infection. COMPARISON: None. DISCUSSION: Considerable degenerative change. Findings of calcification of the triangle fibrocartilage as well as cartilaginous regions consistent with chondrocalcinosis. Soft tissue vascular calcification. Mild dorsal soft tissue edema. No well-defined lytic or blastic process. IMPRESSION: Dorsal soft tissue edema. Degenerative change. No acute bony abnormality. The above report was generated using voice recognition software. It may contain grammatical, syntax or spelling errors. Electronically signed by: Rajan Caceres M.D. 03/22/2019 9:34 PM Blood Pressure Blood Pressure Findings: Elevated blood pressure Blood Pressure Disposition: further management by hospitalist MDM Narrative Patient is a 78-year-old gentleman status post melanoma excision from the right wrist presented a complete concern for infectious areas is red and swollen. No fever noted here. No significant trauma reported. No symptoms or history consistent with diffuse sepsis. Patient does have a seizure disorder history as well as a history of hypertension. No other immunosuppression noted. Resection was on . Noted today significant redness and pain swelling over the evening of dorsal hand/wrist. Significant tenderness. Sutures present with some purulent discharge which was surfaced cultured. Blood cultures obtained. Basic labs obtained. [id number] lactate at 2.0. No significant leukocytosis is noted. X-ray of the wrist was obtained. No crepitus appreciated and no free air seen. Given broad-spectrum antibiotics. Do not currently believe this represents necrotizing fasciitis. I did remove the sutures at bedside of the wound. Given the significant amount of erythema and pain with concerns for skin/soft tissue infection believe admission is warranted for further IV abx treatment. Patient is also having difficulty with hand dexterity due to pain. Discussed with orthopedics and the hospitalist. In discussion with the the hospitalist a CT of the right hand and forearm was obtained to evaluate deeper structures. Bladder scan to be obtained for question of bladder distension on CT. Impression & Plan Cellulitis of hand, right Discharge Plan Visit Data Chief Complaint: Infection Stated Complaint: infected hand after surgery ED Provider: Sharath Carrizales Discharge Problem: Cellulitis of hand, right Patient Disposition: Being Evaluated by Hospitalist Forms Stand Alone Forms: My [place] Prescriptions Prescriptions: No Action phenytoin sodium extended [Dilantin Extended] 100 mg Capsule 300 mg PO TID RF: 0 aspirin 81 mg Tablet,Delayed Release (Dr/Ec) 81 mg PO QPM RF: 0 ibuprofen 200 mg Tablet 200 - 600 mg PO QID PRN (Reason: Pain) RF: 0 lisinopril 40 mg Tablet 40 mg PO QAM RF: 0 tamsulosin [Flomax] 0.4 mg capsule 0.4 mg PO DAILY RF: 0 cephalexin [Keflex] 500 mg capsule 500 mg PO TID RF: 0 dutasteride [Avodart] 0.5 mg capsule 0.5 mg PO DAILY RF: 0 Referrals Referrals: Rodolfo Crum, [Primary Care Provider] - The scribe's documentation has been prepared under my direction and personally reviewed by me in its entirety. I confirm that the note above accurately reflects all work, treatment, procedures, and medical decision making performed by me.
[2019-03-22] MEDS ORDERED: IOVERSOL 100ml IV PRN (23:22)
--- NOTE | 2019-03-23 01:02 | Emergency Department Note ---
ED Visit Note ED Physician Sign Out Note: Pleasant 78 yr old male arrives for infection right hand/wrist/forearm initially evaluated by Dr Carrizales. He had recent skin cancer removal requiring second wider margins. Developed redness/drainage. Arrived ED. Labs/Cultures sent. Vanco/Rocephin given. Reviewed with hospitalist/Ortho and plan to get CT forearm. Signed out to me pending CT. CT finding with questionable forearm deep structure involvement and diffuse soft tissue swelling. He has no exam findings of abcsess nor forearm TTP. Given full ROM wrist and fingers I do not feel that wrist joint nor tendons would be currently infected (pain meds had not been given in quite some time). No crepitus on exam. Reviewed again with Ortho who will see in am and with Hospitalist. Offered add in further abx though hospitalist will manage further. Stable throughout and patient/family comfortable with plan. Bogdan Jason MD
--- NOTE | 2019-03-23 01:41 | History & Physical Report ---
Date of Service March 23, 2019 Assessment & Plan (1) Cellulitis of hand, right: 78 y/o M Hs HTN, BPH, seizure disorder. Underwent Mohs surgery for melanoma on the R forearm 03/18. The area became inflamed following surgery and the pt was placed on Keflex. His arm continued to worsen and he was having some difficulty moving his hand. He was instructed to attend the ER. He has not had fevers or rigors. The pt also provides that over the last 2 months, he has been having difficulty urinating. He was placed on Flomax by his GP. Initial labs obtained in the ER demonstrated NINA and anemia. Lactic acid was borderline and there was no leukocytosis. Imaging demonstrated deep tissue edema along the R forearm consistent with infection. There was no definitive abscess. Incidentally, the bladder was imaged along with the hand showing R hydroureteronephrosis. This is likely BL. The pt was catheterized in the ER yielding 1.5 L. 1) Infection of R arm/hand following Mohs surgery. CT concerning for deep tissue infection and possibility of early abscess. Pt placed on Vanc and Zosyn. Orthopedics contacted - evaluation pending. NPO, IVF. 2) Urinary retention with NINA - there is hydronephrosis on the R and presumably on the L as well. He has been having this issue for a few months which is likely the cause of his rising creatinine. we will leave in a catheter, consult urology and continue Flomax and Dutasteride. 3) Anemia - Hb was near normal prior to surgery. There is no evidence of an acute bleed - trend AM and if Hb decreases consider additional workup for GI loss. Guaiac is pending. 4) Seizure disorder - cont Phenytoin 5) HTN - Lisinopril held due to NINA and likely procedure AM. Full code - SCDs Total time for this admit including review of labs, meds, imaging, records - discussion with pt and ER attending - 38 min Present on Admission?: Yes History of Present Illness Chief Complaint: Infection of hand following Mohs procedure. Primary Care Provider: Rodolfo Crum, DO 78 y/o M Hs HTN, BPH, seizure disorder. Underwent Mohs surgery for melanoma on the R forearm 03/18. The area became inflamed following surgery and the pt was placed on Keflex. His arm continued to worsen and he was having some difficulty moving his hand. He was instructed to attend the ER. He has not had fevers or rigors. The pt also provides that over the last 2 months, he has been having difficulty urinating. He was placed on Flomax by his GP. Initial labs obtained in the ER demonstrated NINA and anemia. Lactic acid was borderline and there was no leukocytosis. Imaging demonstrated deep tissue edema along the R forearm consistent with infection. There was no definitive abscess. Incidentally, the bladder was imaged along with the hand showing R hydroureteronephrosis. This is likely BL. The pt was catheterized in the ER yielding 1.5 L. 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 Family: Both parents in their 80s due to heart disease. Allergies Allergy/AdvReac Type Severity Reaction Status Date / Time No Known Allergies Allergy Verified 09/18/18 13:46 Home Medications Home Medications Medication Instructions Recorded Confirmed Type aspirin 81 mg PO QPM 09/18/18 03/22/19 History ibuprofen 200 - 600 mg PO QID PRN 09/18/18 03/22/19 History lisinopril 40 mg PO QAM 09/18/18 03/22/19 History phenytoin sodium extended 300 mg PO TID 09/18/18 03/22/19 History [Dilantin Extended] cephalexin [Keflex] 500 mg PO TID 03/22/19 03/22/19 History dutasteride [Avodart] 0.5 mg PO DAILY 03/22/19 03/22/19 History tamsulosin [Flomax] 0.4 mg PO DAILY 03/22/19 03/22/19 History Past Med/Surg History Medical History Hx of seizure disorder last seizure 15 yr ago Hypertension Malignant melanoma current issue on left side Surgical History History of cataract surgery both eyes History of open reduction and internal fixation (ORIF) procedure right - as child Hx of amputation of foot left Hx of colonoscopy Social History Preferred Language: Angolan Communication Ability: Effective Beliefs That Will Affect Care: None Current Living Situation: Spouse Feels Safe at Home: Yes Smoking Status: Former smoker Hx Alcohol Use: Yes (PER DAUGHTER) Alcohol type: beer Hx Substance Use: No Review of Systems Review of Systems: Gen: Denies fevers, night sweats, rigors, fatigue, malaise, weight loss/gain ENT: Denies congestion, throat pain, hearing loss Eyes: Denies acute visual changes CV: Denies CP, palpitations Pulmonary: Denies SOB, cough, wheezing GI: Denies N/V, diarrhea, constipation - suprapubic pain prior to catheterization UG: Urinary hesitancy/retention Neuro: Denies acute or unilateral weakness, acute gait impairment, headache or acute visual changes Musculoskeletal: Pain and inflammation of R forearm and hand Skin: Erythema, edema of R arm Physical Exam Physical Exam: General: AAO x 3, no distress ENT: No erythema or exudates, no thrush Eyes: KAM, EOMI Head and neck: Normocephalic, atraumatic, No JVD, neck is supple. Chest/heart: Nontender, S1,2, RRR, no murmurs, no gallops Lungs: CTAB, no wheezing or crackles Abdomen: Nontender, nondistended, BS+ Neuro: AAO x 3, speech is clear, no unilateral weakness or loss of sensation, coordination intact Musculoskeletal: No joint inflammation, muscle tenderness, FROM Skin: Erythema of R arm to mid forearm, open area at surgery site on dorsum of R arm - swelling, erythema extends into hands and fingers Extremities: The L foot is absent - no edema on R Results & Data Vital Signs (Past 12 Hours) Vital Signs Temp Pulse Pulse Resp BP BP Pulse Ox 03/22/19 23:41 20 171/99 H 99 03/22/19 22:45 78 19 153/99 H 99 03/22/19 21:43 89 19 152/99 H 99 03/22/19 19:33 98.6 F 90 18 144/79 H 96 PG Care Time/CCT Total # of Minutes Spent Total Time Spent with Patient: Total time spent is greater than 50% in coordination of care (as documented) at patient's floor/unit and/or counseling patient:
[2019-03-23] MEDS ORDERED: ALUMINUM/MAGNESIUM SUSP 30 ML UDC PO PRN (02:35)
[2019-03-23] MEDS ORDERED: VANCOMYCIN CONSULT ACTIVE PRN (02:35)
[2019-03-23] MEDS ORDERED: MoRPHine SULFATE 2 MG/ML CARP IV PRN (02:35)
[2019-03-23] MEDS ORDERED: ACETAMINOPHEN 325 MG TAB PO PRN ×2 (02:35→18:13)
[2019-03-23] MEDS ORDERED: MAGNESIUM HYDROXIDE SUSP 30 ML UDC PO PRN (02:35)
[2019-03-23] MEDS ORDERED: ZOLPIDEM TARTRATE 5 MG TAB PO PRN (02:35)
[2019-03-23] MEDS ORDERED: POLYETHYLENE (MIRALAX) 17 GM PACK PO PRN (02:35)
[2019-03-23] MEDS ORDERED: ONDANSETRON INJ 2 MG/ML 2 ML VIAL IV PRN (02:35)
[2019-03-23] MEDS ORDERED: PIPERACILL/TAZOBAC CONSULT ACTIVE PRN (02:35)
[2019-03-23] MEDS: D5W AND LACTATED RINGERS 1,000 ML IV SCH ×2 (03:29→11:05)
[2019-03-23] MEDS ORDERED: PIPERACILLIN/TAZOBACTAM 3.375 GM in DEXTROSE 5% 100 ML IV ONE (03:30)
--- NOTE | 2019-03-23 06:49 | CT Scan Report ---
CT OF THE RIGHT FOREARM WITH CONTRAST CLINICAL HISTORY: cellulitis, ?abscess. Status post resection of right wrist melanoma. COMPARISON STUDY: No previous studies for comparison. TECHNIQUE: Axial images of the right forearm were obtained following intravenous injection of 95 cc o f Optiray 320 IV. Study was performed utilizing automated exposure control for dose reduction and acc ording to ALARA principles. FINDINGS: The bladder is markedly distended. There is moderate right hydronephrosis likely related to bladder distention. There is a cyst within segment 5 of the liver. There is probable mixing artifact within the right femoral vein. A marker was placed on the skin at site of maximal swelling. There is subcutaneous infiltration consistent with cellulitis. There is no definite abscess. There is no evid ence for osteomyelitis. Evaluation is compromised by artifact. There may be mild muscular edema withi n the right forearm. IMPRESSION: 1. Subcutaneous infiltration of the dorsal right wrist suggestive of cellulitis. No abscess. No CT ev idence for osteomyelitis. 2. Possible mild muscular edema of the right forearm. 3. Marked distention of the bladder with moderate right hydronephrosis. Electronically signed by: Jann Vasquez M.D. 03/23/2019 6:47 AM
--- NOTE | 2019-03-23 07:03 | CT Scan Report ---
CT hand RT w con CLINICAL HISTORY: 78 years-old Male presenting with infection, ?abscess, history of melanoma removed from the right wrist, right wrist now swollen and red, marker placed on incision site. TECHNIQUE: Multidetector CT of the right hand was performed after the administration of intravenous c ontrast. IV contrast: 95 mL of Optiray 320. One or more dose lowering techniques were used consistent with the principles of ALARA (as low as reasonably achievable), including automatic exposure control , mA or kV adjustment to individual patient size, and/or use of iterative reconstruction. COMPARISON: None. CT DOSE (mGy.cm): The estimated cumulative dose is 709.05. FINDINGS: Glue Specialty Supervisor topogram: Unremarkable. Subcutaneous edema of the right distal forearm and wrist extending into the hand. This is primarily a long the dorsum of the wrist and hand. A marker is placed along the dorsum of the hand at the level o f the proximal carpal row. Traversing vasculature appears patent. No rim-enhancing fluid collection. Muscle edema is present most notably along the extensor surface. Underlying osteopenia. The degree of osteopenia limits evaluation for nondisplaced fracture and osseo us erosion. No displaced fracture. No gross osseous erosion. Mild degenerative changes in the carpus. Atherosclerosis. Mixing artifact suspected in the right common femoral vein. IMPRESSION: 1. No CT evidence of abscess or osteomyelitis. 2. Nonspecific edema along the dorsum of the distal forearm, wrist, and hand. Correlate clinically f or cellulitis. 3. Mixing artifact is suspected in the right common femoral vein versus less likely thrombus. Consid er right lower extremity venous Doppler. Electronically signed by: Chivo Pickens M.D. 03/23/2019 7:02 AM
[2019-03-23 07:25] LABS: Calcium 8.5 mg/dl (8.5-10.1); Creatinine Clr Calc Pharmacy 34.4 ml/min; Est GFR (African American) 53.9; Est GFR (Non-African American) 46.5; Potassium 4.1 mmol/L (3.5-5.1)
--- NOTE | 2019-03-23 08:35 | Ultrasound Report ---
US renal/blad retro comp CLINICAL HISTORY: 78 years-old Male presenting with hydronephrosis. TECHNIQUE: Real-time grayscale and limited color Doppler ultrasound imaging of the kidneys and bladde r was performed. COMPARISON: PET/CT from 09/09/2018. FINDINGS: Right kidney: Normal echogenicity of renal parenchyma. Right kidney measures 10.7 cm. No hydronephros is. Subcentimeter hyperechogenic focus at the upper pole, possibly angiomyolipoma correlating with th e tiny focus of fat evident on prior CT. Trace nonspecific perinephric fluid. Left kidney: Normal echogenicity of renal parenchyma. Left kidney measures 11.3 cm. Mild pelvocaliect asis with slight blunting of the calyces suggested. No convincing evidence of calculus or mass. Bladder: Decompressed with a West catheter. There is suggestion of heterogeneously hypoechoic intral uminal debris. Bilateral ureteral jets not visualized. Other: Distended gallbladder measuring over 10 cm in length. Numerous tiny hyperechogenic foci along the gallbladder wall likely adenomyomatosis or cholesterolosis.. IMPRESSION: 1. Findings concerning for mild left hydronephrosis. 2. Heterogeneous intraluminal bladder debris may represent either hematoma, inspissated debris, or a bnormal soft tissue. Correlate with urinalysis and recent cystoscopy. 3. 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 4. Gallbladder likely physiologically distended. Correlate clinically to ensure the absence of right upper quadrant pain/symptomatology. No convincing evidence of cholecystitis. Electronically signed by: Chivo Pickens M.D. 03/23/2019 8:33 AM
[2019-03-23] MEDS: TAMSULOSIN HCL 0.4 MG CAP PO SCH (09:00)
[2019-03-23] MEDS: PHENYTOIN SODIUM ER 100 MG CAP PO SCH ×4 (09:00→20:14)
--- NOTE | 2019-03-23 09:41 | Family Medicine Progress Note ---
Date of Service March 23, 2019 Assessment & Plan (1) Cellulitis of hand, right: 78yo male with PMHx that includes BPH, HTN and seizure disorder with right arm cellulitis after recent Mohs surgery, an NINA and urinary retention. Right arm cellulitis -continue on vanc and Zosyn until cultures and sensitivities are back -Some concern for deep tissue infection based on CT--appreciate ortho recs -NPO and fluids stopped, due to conservative management recs by ortho of abx. NINA -Creatinine elevated from baseline of 0.68 in January -Continue fluids. -Will continue to monitor. Urinary Retention -1.5L approximately removed in the ED after cath -mild hydronephrosis noted on imaging, on right and left -continue Flomax and dutasteride -Appreciate Urology recs Anemia -Guaiac still pending. -Unsure of cause -will start workup with reticulocyte count -MCV not elevated but will order B12 and folate levels Seizure disorder -cont Phenytoin HTN -Continue to hold Lisinopril until NINA resolves. DVT Proph: SCDs Code Status: Full code Dispo: Discharge pending improvement in cellulitis Supervising Physician Co-Signing Physician Notes Attending attestation Pt seen and examined in concert with Dr. Morgan. In agreement with the documented findings as noted in the resident documentation with any exceptions or additions as noted here. Decreased pain and improved ROM with persistent swelling and erythema of the right hand and distal forearm. Tolerating onofre catheter well. RUE cellulitis - continue vanc/zosyn, follow up Cx. Elevate RUE Urinary retention w/ hydronephrosis and NINA - LR presently. Likely D/C in AM. follow urology recommendations. Continue catheter and monitor I/O. Trend PRP daily Else see resident documentation as noted. Subjective Mr. Muse states his hand is much better today. Is better able to move it. Denies fevers, chills, night sweats, N/V, abd pain or leg swelling. Review of Systems Review of Systems: All systems reviewed & are unremarkable except as noted in HPI & below Physical Exam Physical Exam: General: Alert, oriented. No acute distress HEENT: NC/AT, PERRLA, EOMI, oropharynx moist. Chest: Nontender to palpation. CV: RRR, blowing murmur appreciated Resp: Breath sounds clear bilaterally Abdomen: Soft, nontender, nondistended. Extremities: Right hand swollen with erythema of forearm down to PIP joint of hand. Pt with ROM in right hand. Left foot amputated. No swelling in lower extremities bilaterally. Results & Data Vital Signs (Past 12 Hours) Vital Signs Temp Pulse Pulse Resp BP BP Pulse Ox 03/23/19 07:40 36.8 C 64 16 133/82 97 03/23/19 02:21 36.8 C 81 18 171/102 H 98 03/23/19 02:11 75 19 179/81 H 97 03/23/19 00:26 75 20 171/99 H 97 03/22/19 23:41 20 171/99 H 99 03/22/19 22:45 78 19 153/99 H 99 03/22/19 21:43 89 19 152/99 H 99 Laboratory Results Laboratory Results - last 24 hr 03/22/19 03/22/19 03/22/19 20:56 20:56 20:56 WBC Cancelled RBC Cancelled Hgb Cancelled Hct Cancelled MCV Cancelled MCH Cancelled MCHC Cancelled RDW Std Deviation Cancelled RDW Coeff of Lexie Cancelled Plt Count Cancelled MPV Cancelled Immature Gran % (Auto) Cancelled Neut % (Auto) Cancelled Lymph % (Auto) Cancelled Kane % (Auto) Cancelled Eos % (Auto) Cancelled Baso % (Auto) Cancelled Immature Gran # (Auto) Cancelled Neut # (Auto) Cancelled Lymph # (Auto) Cancelled Kane # (Auto) Cancelled Eos # (Auto) Cancelled Baso # (Auto) Cancelled Absolute Nucleated RBC Cancelled Nucleated RBC % (auto) Cancelled Neutrophils % (Manual) Cancelled Band Neutrophils % Cancelled Lymphocytes % (Manual) Cancelled Prolymphocyte % Cancelled Reactive Lymphs % (Man) Cancelled Monocytes % (Manual) Cancelled Eosinophils % (Manual) Cancelled Basophils % (Manual) Cancelled Metamyelocytes % (Man) Cancelled Myelocytes % (Man) Cancelled Promyelocytes % (Man) Cancelled Blast Cells % (Manual) Cancelled Plasma Cell % (Manual) Cancelled Other Cells % Cancelled Nucleated RBC % Cancelled Neutrophils # (Manual) Cancelled Band Neutrophils # Cancelled Total Absolute Neuts Cancelled Lymphocytes # (Manual) Cancelled Prolymphocyte # Cancelled Reactive Lymphs # Cancelled Total Abs Lymphocytes Cancelled Monocytes # (Manual) Cancelled Eosinophils # (Manual) Cancelled Basophils # (Manual) Cancelled Metamyelocytes # (Man) Cancelled Myelocytes # (Manual) Cancelled Promyelocytes # (Man) Cancelled Blast Cells # (Man) Cancelled Plasma Cell # (Manual) Cancelled Other Cells # Cancelled Nucleated RBCs # (Man) Cancelled Hypersegmented Neuts Cancelled Hyposegmented Neuts Cancelled Hypogranular Neuts Cancelled Large Granular Lymphs Cancelled # Lrg Granular Lymphs Cancelled Hairy Cells Cancelled Smudge Cells Cancelled Toxic Granulation Cancelled Toxic Vacuolation Cancelled Dohle Bodies Cancelled Lamar Rods Cancelled Platelet Estimate Cancelled Hypogranular Platelets Cancelled Clumped Platelets Cancelled Giant Platelets Cancelled Platelet Satelliting Cancelled RBC Morphology Cancelled Polychromasia Cancelled Hypochromasia Cancelled Poikilocytosis Cancelled Basophilic Stippling Cancelled Anisocytosis Cancelled Microcytosis Cancelled Macrocytosis Cancelled Spherocytes Cancelled Pappenheimer Bodies Cancelled Sickle Cells Cancelled Target Cells Cancelled Tear Drop Cells Cancelled Ovalocytes Cancelled Stomatocytes Cancelled Mcwilliams-Bourbonnais Bodies Cancelled Echinocytes Cancelled Acanthocytes (Spur) Cancelled Rouleaux Cancelled RBC Agglutinates Cancelled Schistocytes Cancelled RBC Morph Comment Cancelled Sezary Cell Cancelled PT Cancelled INR Cancelled Sodium Cancelled Potassium Cancelled Chloride Cancelled Carbon Dioxide Cancelled Anion Gap Cancelled BUN Cancelled Creatinine Cancelled Est Cr Clr Drug Dosing Cancelled Est GFR ( Amer) Cancelled Est GFR (Non-Af Amer) Cancelled BUN/Creatinine Ratio Cancelled Glucose Cancelled POC Lactic Acid Talat Calcium Cancelled Total Bilirubin Cancelled AST Cancelled ALT Cancelled Alkaline Phosphatase Cancelled Total Protein Cancelled Albumin Cancelled Globulin Cancelled Albumin/Globulin Ratio Cancelled 03/22/19 03/22/19 03/22/19 20:59 22:07 22:07 WBC 7.99 RBC 2.91 L Hgb 9.3 L Hct 27.1 L MCV 93.1 MCH 32.0 MCHC 34.3 RDW Std Deviation 48.4 H RDW Coeff of Lexie 14.2 Plt Count 205 MPV 8.6 Immature Gran % (Auto) 0.1 Neut % (Auto) 63.2 Lymph % (Auto) 25.8 Kane % (Auto) 9.6 Eos % (Auto) 1.0 Baso % (Auto) 0.3 Immature Gran # (Auto) 0.01 Neut # (Auto) 5.05 Lymph # (Auto) 2.06 Kane # (Auto) 0.77 H Eos # (Auto) 0.08 Baso # (Auto) 0.02 Absolute Nucleated RBC Nucleated RBC % (auto) Neutrophils % (Manual) Band Neutrophils % Lymphocytes % (Manual) Prolymphocyte % Reactive Lymphs % (Man) Monocytes % (Manual) Eosinophils % (Manual) Basophils % (Manual) Metamyelocytes % (Man) Myelocytes % (Man) Promyelocytes % (Man) Blast Cells % (Manual) Plasma Cell % (Manual) Other Cells % Nucleated RBC % Neutrophils # (Manual) Band Neutrophils # Total Absolute Neuts Lymphocytes # (Manual) Prolymphocyte # Reactive Lymphs # Total Abs Lymphocytes Monocytes # (Manual) Eosinophils # (Manual) Basophils # (Manual) Metamyelocytes # (Man) Myelocytes # (Manual) Promyelocytes # (Man) Blast Cells # (Man) Plasma Cell # (Manual) Other Cells # Nucleated RBCs # (Man) Hypersegmented Neuts Hyposegmented Neuts Hypogranular Neuts Large Granular Lymphs # Lrg Granular Lymphs Hairy Cells Smudge Cells Toxic Granulation Toxic Vacuolation Dohle Bodies Lamar Rods Platelet Estimate Hypogranular Platelets Clumped Platelets Giant Platelets Platelet Satelliting RBC Morphology Polychromasia Hypochromasia Poikilocytosis Basophilic Stippling Anisocytosis Microcytosis Macrocytosis Spherocytes Pappenheimer Bodies Sickle Cells Target Cells Tear Drop Cells Ovalocytes Stomatocytes Mcwilliams-Bourbonnais Bodies Echinocytes Acanthocytes (Spur) Rouleaux RBC Agglutinates Schistocytes RBC Morph Comment Sezary Cell PT 10.2 INR 1.0 Sodium Potassium Chloride Carbon Dioxide Anion Gap BUN Creatinine Est Cr Clr Drug Dosing Est GFR ( Amer) Est GFR (Non-Af Amer) BUN/Creatinine Ratio Glucose POC Lactic Acid Talat 2.00 H Calcium Total Bilirubin AST ALT Alkaline Phosphatase Total Protein Albumin Globulin Albumin/Globulin Ratio 03/22/19 03/23/19 03/23/19 22:07 06:44 06:44 WBC RBC Hgb 9.6 L Hct MCV MCH MCHC RDW Std Deviation RDW Coeff of Lexie Plt Count MPV Immature Gran % (Auto) Neut % (Auto) Lymph % (Auto) Kane % (Auto) Eos % (Auto) Baso % (Auto) Immature Gran # (Auto) Neut # (Auto) Lymph # (Auto) Kane # (Auto) Eos # (Auto) Baso # (Auto) Absolute Nucleated RBC Nucleated RBC % (auto) Neutrophils % (Manual) Band Neutrophils % Lymphocytes % (Manual) Prolymphocyte % Reactive Lymphs % (Man) Monocytes % (Manual) Eosinophils % (Manual) Basophils % (Manual) Metamyelocytes % (Man) Myelocytes % (Man) Promyelocytes % (Man) Blast Cells % (Manual) Plasma Cell % (Manual) Other Cells % Nucleated RBC % Neutrophils # (Manual) Band Neutrophils # Total Absolute Neuts Lymphocytes # (Manual) Prolymphocyte # Reactive Lymphs # Total Abs Lymphocytes Monocytes # (Manual) Eosinophils # (Manual) Basophils # (Manual) Metamyelocytes # (Man) Myelocytes # (Manual) Promyelocytes # (Man) Blast Cells # (Man) Plasma Cell # (Manual) Other Cells # Nucleated RBCs # (Man) Hypersegmented Neuts Hyposegmented Neuts Hypogranular Neuts Large Granular Lymphs # Lrg Granular Lymphs Hairy Cells Smudge Cells Toxic Granulation Toxic Vacuolation Dohle Bodies Lamar Rods Platelet Estimate Hypogranular Platelets Clumped Platelets Giant Platelets Platelet Satelliting RBC Morphology Polychromasia Hypochromasia Poikilocytosis Basophilic Stippling Anisocytosis Microcytosis Macrocytosis Spherocytes Pappenheimer Bodies Sickle Cells Target Cells Tear Drop Cells Ovalocytes Stomatocytes Mcwilliams-Bourbonnais Bodies Echinocytes Acanthocytes (Spur) Rouleaux RBC Agglutinates Schistocytes RBC Morph Comment Sezary Cell PT INR Sodium 142 139 Potassium 4.1 4.1 Chloride 112 H 109 H Carbon Dioxide 20 L 24 Anion Gap 10.0 6.0 BUN 35 H 32 H Creatinine 1.36 1.44 H Est Cr Clr Drug Dosing 38.6 34.4 Est GFR ( Amer) 57.8 53.9 Est GFR (Non-Af Amer) 49.8 46.5 BUN/Creatinine Ratio 25.7 H 22.0 H Glucose 84 154 H POC Lactic Acid Talat Calcium 8.6 8.5 Total Bilirubin 0.2 AST 20 ALT 29 Alkaline Phosphatase 80 Total Protein 6.5 Albumin 3.2 L Globulin 3.3 Albumin/Globulin Ratio 1.0 Medications Administered Home Medications aspirin 81 mg PO QPM 09/18/18 [History Confirmed 03/22/19] ibuprofen 200 - 600 mg PO QID PRN 09/18/18 [History Confirmed 03/22/19] lisinopril 40 mg PO QAM 09/18/18 [History Confirmed 03/22/19] phenytoin sodium extended [Dilantin Extended] 300 mg PO TID 09/18/18 [History Confirmed 03/22/19] cephalexin [Keflex] 500 mg PO TID 03/22/19 [History Confirmed 03/22/19] dutasteride [Avodart] 0.5 mg PO DAILY 03/22/19 [History Confirmed 03/22/19] tamsulosin [Flomax] 0.4 mg PO DAILY 03/22/19 [History Confirmed 03/22/19] Active Medications Acetaminophen (Tylenol) 650 mg PO Q4H PRN PRN Reason: pain/fever Stop: 04/22/19 02:34 Al Hydrox/Mg Hydrox/Simethicone (Maalox) 30 ml PO Q6H PRN PRN Reason: Dyspepsia Stop: 04/22/19 02:34 Piperacillin Sod/Tazobactam (Sod 3.375 gm/ Dextrose) 115 mls @ 28.75 mls/hr IV Q8H BOOGIE; Protocol Stop: 04/02/19 09:59 Last Infusion: 03/23/19 15:23 Dose: Infused Documented by: Dextrose/Lactated Ringer's (D5w And Lactated Ringers) 1,000 mls @ 125 mls/hr IV .Q8H BOOGIE Stop: 03/23/19 18:34 Last Admin: 03/23/19 11:05 Dose: 125 mls/hr Documented by: Vancomycin HCl 1,000 mg/ (Sodium Chloride) 270 mls @ 125 mls/hr IV Q24H BOOGIE; Protocol Stop: 04/02/19 19:59 Magnesium Hydroxide (Milk Of Magnesia) 30 ml PO Q6H PRN PRN Reason: Constipation Stop: 04/22/19 02:34 Miscellaneous (Order Awaiting Action) 1 ea N/A DAILY BOOGIE Stop: 04/22/19 08:59 Last Admin: 03/23/19 08:59 Dose: Not Given Documented by: Miscellaneous Information (Consult) 1 ea N/A UD PRN PRN Reason: Consult Stop: 04/22/19 02:34 Miscellaneous Information (Consult) 1 ea N/A UD PRN PRN Reason: Consult Stop: 04/22/19 02:34 Morphine Sulfate (Morphine Sulfate) 2 mg IV Q4H PRN PRN Reason: Pain Stop: 04/06/19 02:34 Ondansetron HCl (Zofran) 4 mg IV Q6H PRN PRN Reason: Nausea Stop: 04/22/19 02:34 Last Admin: 03/23/19 12:22 Dose: 4 mg Documented by: Phenytoin Sodium (Dilantin Er) 300 mg PO BID BOOGIE Stop: 04/22/19 20:59 Polyethylene Glycol (Miralax Powder Packet) 17 gm PO DAILY PRN PRN Reason: Constipation Stop: 04/22/19 02:34 Tamsulosin HCl (Flomax) 0.4 mg PO DAILY BOOGIE Stop: 04/22/19 08:59 Last Admin: 03/23/19 09:00 Dose: 0.4 mg Documented by: Zolpidem Tartrate (Ambien) 5 mg PO HS PRN PRN Reason: Sleep Stop: 04/22/19 02:34 PG Care Time/CCT Total # of Minutes Spent Total Time Spent with Patient: Total time spent is greater than 50% in coordination of care (as documented) at patient's floor/unit and/or counseling patient: Resident Activity Tracking Resident Involvement: Resident Care Provided Care Provided: Adult Hospital Medicine
--- NOTE | 2019-03-23 10:05 | Pharmacy Report ---
Pharmacy Abx Initial Consult - Date of Service March 23, 2019 - Pharmacy Dosing Scope Date of Consult: 03/23 Consultation requested by: Dr. Rasmussen Pharmacy is consulted to initiate vancomycin/zosyn dosing therapy, order appropriate labs and adjust drug dose/frequency. - Subjective The patient is a 78 year old M admitted on 03/23/19 01:34. - Objective Height: 5 ft 9 in Weight: 56.6 kg Vital Signs (Past 12hrs): Vital Signs Temp Pulse Pulse Resp BP BP Pulse Ox 03/23/19 07:40 36.8 C 64 16 133/82 97 03/23/19 02:21 36.8 C 81 18 171/102 H 98 03/23/19 02:11 75 19 179/81 H 97 03/23/19 00:26 75 20 171/99 H 97 03/22/19 23:41 20 171/99 H 99 03/22/19 22:45 78 19 153/99 H 99 Lab Results (24hrs): Laboratory Tests (24 Hours) 03/23/19 03/22/19 03/22/19 06:44 22:07 22:07 WBC 7.99 Neut # (Auto) 5.05 Creatinine 1.44 H 1.36 Est Cr Clr Drug Dosing 34.4 38.6 03/22/19 03/22/19 20:56 20:56 WBC Cancelled Neut # (Auto) Cancelled Creatinine Cancelled Est Cr Clr Drug Dosing Cancelled Micro Results: 03/22/19 20:57 Gram Stain - Final Hand,Right Wound Culture - Pending 03/22/19 20:50 Aerobic Blood Culture - Pending Blood Anaerobic Blood Culture - Pending 03/22/19 20:56 Aerobic Blood Culture - Pending Blood Anaerobic Blood Culture - Pending - Assessment & Plan Assessment 78 year old M admitted with cellulitis of right hand, concern now for possible abscess. S/P Mohs surgery on 03/18, area following surgery became painful,red and swollen. Blood cultures x 2 are pending. Wound culture also pending. Patient previously on keflex (listed on outpatient medication list - per fill hx filled on 03/22) Plan Vancomycin IV * Received loading dose of vancomycin 1250 mg iv x 1 in the ED yesterday night (~22 mg/kg) * Vancomycin 1000 mg (~17 mg/kg) iv q 24 hrs ordered on going to achieve estimated trough ~15-20 mcg/ml * Scr appears elevated from baseline Scr. 1.44 mg/dL today (baseline closer to ~1.0 mg/dL) * Estimated kinetics: t1/2~21 hrs, ke~0.03 hr-1, CrCl ~34 ml/min * Will plan to obtain a trough prior to the 2000 dose tomorrow to assess clearance of vancomycin - note, this will be before steady state, but anticipate he will likely clear vancomycin faster than expected Zosyn * 3.375 gm iv q 8 hrs - appropriate for CrCl >20 ml/min / no change Pharmacy will continue to follow and will adjust dose/frequency as necessary. Thank you.
[2019-03-23] MEDS: PIPERACILLIN/TAZOBACTAM 3.375 GM in DEXTROSE 5% 100 ML IV SCH ×2 (11:05→18:52)
--- NOTE | 2019-03-23 11:09 | Ultrasound Report ---
US venous doppler LE RT CLINICAL HISTORY: Abnormal CT scan. Possible DVT. COMPARISON STUDY: No previous studies for comparison. FINDINGS: Real-time and color flow Doppler imaging were performed. Flow was seen within the femoral, popliteal and calf veins with no intraluminal thrombus demonstrated. The saphenous vein is patent. Th ere is a small thrombus within a manager service desk branch at the level the knee extending to within 1.7 cm o f the popliteal vein. This is likely chronic given its appearance. IMPRESSION: 1. No evidence of right lower extremity DVT 2. 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 03/23/2019 11:08 AM
[2019-03-23] MEDS ORDERED: Nursing to Pharmacy Communication ONE (13:52)
--- NOTE | 2019-03-23 13:54 | Orthopedic Consultation ---
Date of Consultation March 23, 2019 Assessment & Plan (1) Cellulitis of hand, right: He was seen and examined by Dr. Andrews today as well. He did recommend conservative management, continue antibiotics, dressing changes BID with 4x4 gauze and kerlix, and we will plan to recheck his hand/wrist tomorrow. We cancelled npo and ordered him a diet. History of Present Illness Reason for Consultation: right hand infection Attending Physician: Curt Garcia MD History of Present Illness Mr. Muse is a 78 y/o RHD male. He had a MOH's procedure for melanoma 04/17/19 by his construction project manager. On friday he developed pain and swelling which continued to worsen. He came yesterday to the ER and was admitted to the hospitalist service. His sutures were removed. He states that today it has improved quite a bit since yesterday. He also had an infection after a MOH's procedure 5 months ago in a different location. No fevers. Allergies Allergy/AdvReac Type Severity Reaction Status Date / Time No Known Allergies Allergy Verified 09/18/18 13:46 Home Medications Home Medications Medication Instructions Recorded Confirmed Type aspirin 81 mg PO QPM 09/18/18 03/22/19 History ibuprofen 200 - 600 mg PO QID PRN 09/18/18 03/22/19 History lisinopril 40 mg PO QAM 09/18/18 03/22/19 History phenytoin sodium extended 300 mg PO TID 09/18/18 03/22/19 History [Dilantin Extended] cephalexin [Keflex] 500 mg PO TID 03/22/19 03/22/19 History dutasteride [Avodart] 0.5 mg PO DAILY 03/22/19 03/22/19 History tamsulosin [Flomax] 0.4 mg PO DAILY 03/22/19 03/22/19 History Patient History Medical History Hx of seizure disorder last seizure 15 yr ago Hypertension Malignant melanoma current issue on left side Surgical History History of cataract surgery both eyes History of open reduction and internal fixation (ORIF) procedure right - as child Hx of amputation of foot left Hx of colonoscopy Social History Preferred Language: Angolan Communication Ability: Effective Torpedo Man Required: No Beliefs That Will Affect Care: None Current Living Situation: Family Feels Safe at Home: Yes Safety Concerns: Feels Safe At This Time Smoking Status: Former smoker Hx Alcohol Use: Yes Alcohol type: beer Hx Substance Use: No Review of Systems Constitutional: no fever and no chills Musculoskeletal: + swelling, + stiffness and + limited range of motion as per HPI Physical Exam Physical Exam: He's alert and oriented. NAD. Right hand: he has a wound on the dorsum of the hand/wrist, approx 2cm in length. There is some active drainage. He has swelling of his hand and fingers. He can flex/extend his fingers appropriately and make a full fist, which he says he couldn't do yesterday. Brisk refill. NVI. No streaking erythema extending into the forearm. Results & Data Vital Signs (Past 12 Hours) Vital Signs Temp Pulse Pulse Resp BP BP Pulse Ox 03/23/19 11:06 37.1 C 76 16 155/89 H 97 03/23/19 07:40 36.8 C 64 16 133/82 97 03/23/19 02:21 36.8 C 81 18 171/102 H 98 03/23/19 02:11 75 19 179/81 H 97 Diagnostic Findings xrays and CT show degenerative changes throughout his wrist. No evidence of abscess.
--- NOTE | 2019-03-23 15:57 | Urology Consultation ---
Date of Consultation March 23, 2019 Assessment & Plan (1) Urinary retention: Urinary retention. Continue Tamsulosin. Maintain West for 7-10d. Will arrange outpatient TOV and repeat evaluation in our clinic. Thanks for allowing us to participate in the inpatient care of Mr. Muse. Please contact our service if we can be of further assistance during hospitalization. History of Present Illness Attending Physician: Curt Garcia MD History of Present Illness Mr. Muse is a 78YO male with postoperative UR. Patient had recent surgery last week, readmitted for infected wound. Was found to be retaining urine upon admission and West was inserted. Reports a generalized slowing of his urinary stream in the past several months. Was started on Tamsulosin by PCP last week for urinary trouble. This is his first time seeing a urologist. No fevers/chills. No hematuria. Allergies Allergy/AdvReac Type Severity Reaction Status Date / Time No Known Allergies Allergy Verified 09/18/18 13:46 Home Medications Home Medications Medication Instructions Recorded Confirmed Type aspirin 81 mg PO QPM 09/18/18 03/22/19 History ibuprofen 200 - 600 mg PO QID PRN 09/18/18 03/22/19 History lisinopril 40 mg PO QAM 09/18/18 03/22/19 History phenytoin sodium extended 300 mg PO TID 09/18/18 03/22/19 History [Dilantin Extended] cephalexin [Keflex] 500 mg PO TID 03/22/19 03/22/19 History dutasteride [Avodart] 0.5 mg PO DAILY 03/22/19 03/22/19 History tamsulosin [Flomax] 0.4 mg PO DAILY 03/22/19 03/22/19 History Patient History Medical History Hx of seizure disorder last seizure 15 yr ago Hypertension Malignant melanoma current issue on left side Surgical History History of cataract surgery both eyes History of open reduction and internal fixation (ORIF) procedure right - as child Hx of amputation of foot left Hx of colonoscopy Social History Preferred Language: French Communication Ability: Effective Logistics Engineering Manager Required: No Beliefs That Will Affect Care: None Current Living Situation: Family Feels Safe at Home: Yes Safety Concerns: Feels Safe At This Time Smoking Status: Former smoker Hx Alcohol Use: Yes Alcohol type: beer Hx Substance Use: No Review of Systems Constitutional: no fever and no chills Eyes: no worsening vision Ear, Nose, Mouth, Throat: + hearing loss Respiratory: no dyspnea Cardiovascular: no chest pain Gastrointestinal: no nausea and no vomiting Genitourinary: + as per Subjective / HPI; no hematuria Musculoskeletal: no back pain Neurologic: no confusion Psychiatric: no problem reported Endocrine: no fatigue Physical Exam Physical Exam: WD NAD. ENMT: +hard of hearing Neck appears normal. Resp effort normal. No JVD. Abd soft, nontender. : bladder nondistended, West in place, patent, draining clear yellow urine. A&O x3, appropriate affect. Results & Data Vital Signs (Past 12 Hours) Vital Signs Temp Pulse Resp BP Pulse Ox 03/23/19 14:53 36.8 C 76 16 130/82 97 03/23/19 11:06 37.1 C 76 16 155/89 H 97 03/23/19 07:40 36.8 C 64 16 133/82 97
[2019-03-23 16:34] LABS: Reticulocyte % 0.8 % (0.5-2.0); Reticulocytes # 0.02 10^6/uL (0.02-0.10)
[2019-03-23 17:09] LABS: Folate (Folic Acid) 6.07 ng/ml (>5.38)
[2019-03-23] MEDS ORDERED: IBUPROFEN 800 MG TAB PO PRN (18:14)
[2019-03-23] MEDS ORDERED: TRAMADOL HCL 50 MG TABLET PO PRN (18:20)
[2019-03-23] MEDS ORDERED: VANCOMYCIN HCL 1,000 MG in SODIUM CHLORIDE 0.9% 250 ML IV SCH (20:00)
[2019-03-24] MEDS: PIPERACILLIN/TAZOBACTAM 3.375 GM in DEXTROSE 5% 100 ML IV SCH ×2 (02:29→08:31)
[2019-03-24 07:31] LABS: Basophils # (auto) 0.03 K/uL (0-0.2); Basophils % (auto) 0.4 %; Eosinophils # (auto) 0.16 K/uL (0-0.5); Eosinophils % (auto) 2.4 %; Hematocrit (blood only) 26.6 % (42-52); Hemoglobin 8.9 g/dL (14.0-18.0); Immature Granulocytes # (auto) 0.01 K/uL (0.00-0.02); Immature Granulocytes % (auto) 0.1 %; Lymphocytes # (auto) 1.78 K/uL (1.2-3.4); Lymphocytes % (auto) 26.2 %; Mean Corpuscular Hgb Conc 33.5 g/dL (32-36); Mean Platelet Volume 9.2 fL (7.4-10.4); Monocytes # (auto) 0.94 K/uL (0.11-0.59); Monocytes % (auto) 13.8 %; Neutrophils # (auto) 3.87 K/uL (1.4-6.5); Neutrophils % (auto) 57.1 %; Platelet Count 187 K/uL (130-400); RDW Coefficient of Variation 14.5 % (11.5-14.5); RDW Standard Deviation 50.5 fL (36.4-46.3); White Blood Count 6.79 K/uL (4.8-10.8)
[2019-03-24 08:07] LABS: Albumin Level 2.6 gm/dl (3.4-5.0); BUN Creatinine Ratio 12.8 (10-20); Calcium 8.6 mg/dl (8.5-10.1); Creatinine Clr Calc Pharmacy 34.4 ml/min; Est GFR (African American) 53.9; Est GFR (Non-African American) 46.5; Potassium 4.2 mmol/L (3.5-5.1)
[2019-03-24 08:11] LABS: Albumin Globulin Ratio 0.8 (0.9-2); Bilirubin,Total 0.3 mg/dl (0.2-1); Globulin 3.3 gm/dl (2.5-4.0); Total Protein 5.9 gm/dl (6.4-8.2)
[2019-03-24] MEDS: TAMSULOSIN HCL 0.4 MG CAP PO SCH (08:31)
[2019-03-24] MEDS: PHENYTOIN SODIUM ER 100 MG CAP PO SCH (08:31)
--- NOTE | 2019-03-24 10:33 | Progress Note ---
DATE: 03/24/2019 SUBJECTIVE: A 78-year-old gentleman admitted with some hand cellulitis after a Mohs procedure. He is doing much better today. Really not having any pain. He is anxious to get out of the hospital. OBJECTIVE: VITAL SIGNS: Temperature is 37.0. Vital signs are stable. He is a bit hypertensive. EXTREMITIES: Examination of the right hand reveals the dressing to be in place. No significant drainage. The swelling is markedly improved. There is no real residual surrounding cellulitis. He can flex and extend his fingers appropriately. Once again minimal pain. ASSESSMENT: A 78-year-old gentleman admitted with some postoperative cellulitis after previous Mohs procedure. It seems like it is under control. There is no need for surgical intervention. I do think he can be converted to p.o. antibiotics and probably needs about 7-10 day course. He can follow up with his control panel operator crude unit, Dr. Pelayo on the outside. PLAN: At this point, I think he is okay to be converted to p.o. antibiotics any time Medicine feels comfortable with this. I would recommend 7-10 days of coverage. He can follow with Dr. Pelayo. Any orthopedic questions can be directed at [phone]. There is no need for surgical intervention.
--- NOTE | 2019-03-24 11:39 | Family Medicine Progress Note ---
Date of Service March 24, 2019 Assessment & Plan (1) Cellulitis of hand, right: See discharge summary from same date for resident note. Supervising Physician Co-Signing Physician Notes See discharge note Results & Data Vital Signs (Past 12 Hours) Vital Signs Temp Pulse Resp BP Pulse Ox 03/24/19 07:25 37 C 83 16 167/94 H 97 PG Care Time/CCT Total # of Minutes Spent Total Time Spent with Patient: Total time spent is greater than 50% in coordination of care (as documented) at patient's floor/unit and/or counseling patient:
[2019-03-24] MEDS ORDERED: VANCOMYCIN TROUGH ONE (19:30)
--- NOTE | 2019-03-24 19:50 | Discharge Summary ---
Date of Service March 24, 2019 Admission HPI Per Admitting Provider 78 y/o M Hs HTN, BPH, seizure disorder. Underwent Mohs surgery for melanoma on the R forearm 03/18. The area became inflamed following surgery and the pt was placed on Keflex. His arm continued to worsen and he was having some difficulty moving his hand. He was instructed to attend the ER. He has not had fevers or rigors. The pt also provides that over the last 2 months, he has been having difficulty urinating. He was placed on Flomax by his GP. Initial labs obtained in the ER demonstrated NINA and anemia. Lactic acid was borderline and there was no leukocytosis. Imaging demonstrated deep tissue edema along the R forearm consistent with infection. There was no definitive abscess. Incidentally, the bladder was imaged along with the hand showing R hydroureteronephrosis. This is likely BL. The pt was catheterized in the ER yielding 1.5 L. 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 Family: Both parents in their 80s due to heart disease. Admission Exam Per Admitting Provider Gen: Denies fevers, night sweats, rigors, fatigue, malaise, weight loss/gain ENT: Denies congestion, throat pain, hearing loss Eyes: Denies acute visual changes CV: Denies CP, palpitations Pulmonary: Denies SOB, cough, wheezing GI: Denies N/V, diarrhea, constipation - suprapubic pain prior to catheterization UG: Urinary hesitancy/retention Neuro: Denies acute or unilateral weakness, acute gait impairment, headache or acute visual changes Musculoskeletal: Pain and inflammation of R forearm and hand Skin: Erythema, edema of R arm Principal Diagnosis Cellulitis of right arm and forearm Discharge Exam General: Alert, oriented. No acute distress HEENT: NC/AT, PERRLA, EOMI, oropharynx moist. Chest: Nontender to palpation. CV: RRR, blowing murmur appreciated Resp: Breath sounds clear bilaterally Abdomen: Soft, nontender, nondistended. Extremities: Much improved right hand swelling with erythema of forearm down to PIP joint of hand. Pt with ROM in right hand. Left foot amputated. No swelling in lower extremities bilaterally. Discharge Data Allergies Allergy/AdvReac Type Severity Reaction Status Date / Time No Known Allergies Allergy Verified 09/18/18 13:46 Consultations 03/22/19 22:40 ED Decision to Admit Stat 03/23/19 02:35 Consult Orthopedic Surgery Routine Consult Urology Routine Ordered Studies 03/22/19 22:55 CT hand RT w con Urgent 03/22/19 22:59 CT forearm RT w con Urgent 03/23/19 02:20 US renal/blad retro comp Routine 03/23/19 09:23 US venous doppler LE RT Routine Hospital Course (1) Cellulitis of hand, right: 78yo male with PMHx that includes BPH, HTN and seizure disorder with right arm cellulitis after recent Mohs surgery, an NINA and urinary retention. Admitted on March 23 and discharged on March 24 with doxycyline for 14 days. was treated while hospitalized with vancomycin and Zosyn empirically. Right arm cellulitis -continued on vanc and Zosyn until discharge. Was discharged with doxycycline for 14 days. -Some concern for deep tissue infection based on CT--appreciated ortho recs who advised conservative management as no evidence of osteomyelitis. -NPO and fluids stopped, due to conservative management recs by ortho of abx. -CLose PCP followup strongly recommended to ensure complete resolution of symptoms. NINA -Creatinine elevated from baseline of 0.68 in January -Likely postrenal and still elevated at 1.44 on discharge. -Close PCP followup STRONGLY advised. Pt discharged with repeat BMP script and PCP appt for followup. Urinary Retention due to Hx of BPH -1.5L approximately removed in the ED after cath -mild hydronephrosis noted on imaging, on right and left -continue Flomax and dutasteride -Appreciated Urology recs- they recommended discharge with onofre and removal as an outpatient. Appt for removal was scheduled before discharge. -PCP followup strongly recommended. Anemia -Unsure of cause -close PCP followup strongly recommended. Seizure disorder -cont Phenytoin HTN -Held Lisinopril until NINA resolves. -Close PCP followup strongly recommended. Total Time Total Time Spent Total Time Spent (In Minutes): 60 Discharge Plan Discharge Items Patient Disposition: Home - Self-Care Reason For Visit: INFECTION OF RIGHT ARM / HAND Discharge Diagnosis: Right arm and hand cellulitis Discharge Goals: Decrease discomfort and Improve function Activity: Per 'Additional Instructions' section Non-emergency contact: Primary Care Provider Call non-emergency contact if: your symptoms worsen and you have a fever Follow-up/Referrals: Rodolfo Crum, [Primary Care Provider] - 03/29/19 10:10 am (A follow up appt. has been made for you on March 29 at 10:10am with Dr. Mehta at the [facility].) Diet: Regular Addtl Provider Instructions: You were admitted because you developed an infection in your right arm and hand after you had Mohs surgery. We treated you with IV antibiotics and you seemed to get better. -We are discharging you today with antibiotics that you can take by mouth. This is a medication called doxycycline. Please take it for the next 14 days. -You also retained your urine because of your prostate history. We put in a catheter to help drain your urine and you will be discharged with that catheter. -We recommend that you followup with your urologist at your scheduled appointment to have your catheter removed. -Your kidney function was also a bit higher than normal, we recommend following up with your primary care doctor to monitor your levels. Please stop taking your home ibuprofen and lisinopril for a few days until your kidney function recovers. Please followup closely with your primary doctor so that they can be restarted. -You will need to have lab work on 03/29 rechecking a "BMP " to monitor your Cr. . Please follow up with your primary care provider to have this lab checked. -We strongly recommend that you followup closely with your primary care doctor to ensure healing of your right arm and hand. -Please present to the ED if your symptoms worsen or return, or you suddenly develop fevers, chills or night sweats. Prescriptions: New doxycycline hyclate 100 mg capsule 100 mg PO BID 14 Days Qty: 28 RF: 0 Continued phenytoin sodium extended [Dilantin Extended] 100 mg Capsule 300 mg PO TID RF: 0 aspirin 81 mg Tablet,Delayed Release (Dr/Ec) 81 mg PO QPM RF: 0 tamsulosin [Flomax] 0.4 mg capsule 0.4 mg PO DAILY RF: 0 dutasteride [Avodart] 0.5 mg capsule 0.5 mg PO DAILY RF: 0 Discontinued ibuprofen 200 mg Tablet 200 - 600 mg PO QID PRN (Reason: Pain) RF: 0 lisinopril 40 mg Tablet 40 mg PO QAM RF: 0 cephalexin [Keflex] 500 mg capsule 500 mg PO TID RF: 0 Stand-Alone Forms: [facility]/Other Patient Handouts: Doxycycline Hyclate Gastro-resistant tablet, Cellulitis Dc, Catheter Indwelling Urinary Dc, Leg Bag Care Dc Discharge Orders: Discharge Order (Routine); Ordered 03/24/19 Ordered By: Kaz Bagley Admission Data Admit Date/Time: 03/23/19 01:34 Attending Provider: Curt Garcia Admit Provider: Chaz Rasmussen Primary Care Provider: Rodolfo Crum Other Providers: Trang Morgan ; Jovan Clement ; Jason Andrews ; Neyda Hurley Service: Surgical Services Other Interventions: Discharge Summary Assessment (RN) Last Done: 03/24/19 16:50 DC Date/Time DO NOT enter until pt leaves facility: 03/24/19 16:51 Supervising Physician Co-Signing Physician Notes Attending attestation Pt seen and examined in concert with Dr. Morgan. In agreement with the documented findings as noted in the resident documentation with any exceptions or additions as noted here. Continued improvement in swelling, redness and dexterity of the distal RUE. Tolerating onofre catheter well RUE cellulitis - BCx negative x 48 hours. Wound culture w/ tetracycline sensitive staph. Transitioned to PO doxycycline to complete 14 day course. Encourage elevation of RUE. Urinary retention w/ hydronephrosis and NINA - stable at 1.44 after hydration w/ LR and onofre placement. Urology follow up in 7 days. Repeat BMP at primary care follow up to ensure resolution of NINA. Else see resident documentation as noted.
--- NOTE | 2019-03-25 08:42 | Coding Query ---
CODING QUERY To promote full compliance with coding requirements relating to patient care, provider participation is requested in all cases of tobacco drying machine operator uncertainty. Please assist us with the question(s) below: Please clarify the meaning of NINA. NINA is not a valid abbreviation. Thank you. ( X) Acute Kidney Injury ( ) Acute Kidney Insufficiency ( ) Other (Specify): Principal Diagnosis: "that condition established after study, to be chiefly responsible for occasioning the admission of the patient to the hospital for care." Co-Existing Principal Diagnosis: "when two or more diagnoses equally meet the criteria for principal diagnosis as determined by the circumstances of admission, diagnostic work up, and/or therapy provided, and the Alphabetic Index, Tabular List, or another coding guideline does not provide sequencing direction, any one of the diagnoses may be sequenced first." "When the physician has documented what appears to be a current diagnosis in the body of the record, but has not included the diagnosis in the final diagnostic statement, the physician should be asked whether the diagnosis should be added." (Source Coding [facility] 2 QTR90. p3-4) AIDE
== END 2019-03-24 16:51 | disposition home or self-care (01) | DRG 863 ==
LOC: ED 19:19 → SUATTDRO 03-23 01:34 → 3W 03-23 01:34

== ENCOUNTER 2019-04-03 08:16 | Inpatient (IN) ==
[2019-04-03] MEDS ORDERED: SODIUM CHLORIDE 0.9% 500 ML IV ONE (08:33)
[2019-04-03] MEDS ORDERED: ONDANSETRON INJ 2 MG/ML 2 ML VIAL IV STA (08:50)
[2019-04-03] MEDS ORDERED: FAMOTIDINE 20 MG TAB PO ONE (08:50)
[2019-04-03] MEDS ORDERED: ALUMINUM/MAGNESIUM SUSP 18 ML, LIDOCAINE HCL VISCOUS 2% 6 ML, BARCODE IDENTIFIER 1 EA PO ONE (08:50)
--- NOTE | 2019-04-03 08:57 | XRay Report ---
SINGLE VIEW CHEST CLINICAL HISTORY: Atypical chest pain. FINDINGS: An AP, portable, upright chest radiograph is correlated with chest CT dated 04/15/2017. The examination is degraded by portable technique and patient rotation. The heart is mildly enlarged. Th e pulmonary vasculature is noncongested. Emphysema and chronic interstitial thickening are similar to previous. No airspace consolidation or large pleural effusion is identified. No pneumothorax is seen . The skeletal structures are osteopenic. There are healed bilateral rib fractures. Degenerative pop ges noted in the thoracic spine. IMPRESSION: Mild cardiac enlargement and emphysema with no acute cardiopulmonary abnormality. Electronically signed by: Shane Singh M.D. 04/03/2019 8:56 AM
[2019-04-03 09:10] LABS: Basophils # (auto) 0.03 K/uL (0-0.2); Basophils % (auto) 0.6 %; Eosinophils # (auto) 0.01 K/uL (0-0.5); Eosinophils % (auto) 0.2 %; Hematocrit (blood only) 32.2 % (42-52); Hemoglobin 11.2 g/dL (14.0-18.0); Immature Granulocytes # (auto) 0.01 K/uL (0.00-0.02); Immature Granulocytes % (auto) 0.2 %; Lymphocytes # (auto) 2.02 K/uL (1.2-3.4); Lymphocytes % (auto) 40.5 %; Mean Corpuscular Hgb Conc 34.8 g/dL (32-36); Mean Corpuscular Volume 93.6 fL (80-100); Mean Platelet Volume 8.5 fL (7.4-10.4); Monocytes # (auto) 0.57 K/uL (0.11-0.59); Monocytes % (auto) 11.4 %; Neutrophils # (auto) 2.35 K/uL (1.4-6.5); Neutrophils % (auto) 47.1 %; Platelet Count 270 K/uL (130-400); RDW Coefficient of Variation 14.9 % (11.5-14.5); RDW Standard Deviation 50.9 fL (36.4-46.3); Red Blood Count 3.44 M/uL (4.7-6.1); White Blood Count 4.99 K/uL (4.8-10.8)
[2019-04-03 09:23] LABS: Alanine Aminotransferase 28 U/L (12-78); Albumin Level 3.3 gm/dl (3.4-5.0); Aspartate Aminotransferase 20 U/L (15-37); BUN Creatinine Ratio 22.1 (10-20); Blood Urea Nitrogen 47 mg/dl (7-18); Calcium 9.8 mg/dl (8.5-10.1); Carbon Dioxide 22 mmol/L (21-32); Chloride 104 mmol/L (98-107); Est GFR (African American) 33.5; Est GFR (Non-African American) 28.9; Glucose 126 mg/dl (70-99); Magnesium 2.2 mg/dl (1.8-2.4); Potassium 4.4 mmol/L (3.5-5.1); Sodium 138 mmol/L (136-145)
[2019-04-03] MEDS ORDERED: GI COCKTAIL ED USE PO ONE (09:31)
[2019-04-03 09:34] LABS: Albumin Globulin Ratio 0.8 (0.9-2); Alkaline Phosphatase 81 U/L (45-117); Bilirubin,Total 0.5 mg/dl (0.2-1); Globulin 3.9 gm/dl (2.5-4.0); Phosphorus 3.9 mg/dl (2.5-4.9); Total Protein 7.2 gm/dl (6.4-8.2); Troponin I < 0.015 ng/ml (0-0.045)
--- NOTE | 2019-04-03 10:05 | CT Scan Report ---
CT SCAN OF THE BRAIN WITHOUT IV CONTRAST CLINICAL HISTORY: Fall. Headache. Weakness. COMPARISON STUDY: CT of the brain dated 04/15/2017. TECHNIQUE: Unenhanced axial CT scan of the brain is performed from the vertex to the skull base. A do se lowering technique was utilized adhering to the principles of ALARA. CT DOSE: 708.99 mGy.cm FINDINGS: Brain parenchyma: There are age-related involutional changes noting moderate subcortical and periven tricular microangiopathic change. There is no hemorrhage, mass effect, or evidence of acute territori al ischemia by CT criteria. Crowley-white matter differentiation is preserved. No extra-axial fluid joshua ection is seen. Ventricles, sulci, cisterns: Prominent secondary to involutional change. Intracranial vasculature: There is atherosclerotic calcification of the cavernous carotid and vertebr al arteries. Calvarium: The skeletal structures are osteopenic. No depressed calvarial fracture is seen. Sinuses and mastoids: The visualized paranasal sinuses are clear. The mastoid air cells are well pneu matized. Orbits: The bony orbits are grossly intact. There are bilateral ocular lens implants. IMPRESSION: There is no hemorrhage, mass effect, or evidence of acute territorial ischemia by CT geena patel. Electronically signed by: Shane Singh M.D. 04/03/2019 10:04 AM
--- NOTE | 2019-04-03 11:31 | History & Physical Report ---
Date of Service April 03, 2019 Assessment & Plan (1) Acute prerenal failure: Administer intravenous fluids. Monitor intake and output. Repeat renal ultrasound. Serial lab studies Present on Admission?: Yes (2) Volume depletion: Administer intravenous fluids. Monitor intake and output Present on Admission?: Yes (3) Doxycycline adverse reaction: Discontinue doxycycline. Switch to intravenous clindamycin. MSSA isolat ed from recent right wrist surgical wound culture Present on Admission?: Yes (4) Dilantin toxicity: Hold Dilantin. Correct volume status. Serial lab studies Present on Admission?: Yes (5) Prostatism: Continue Flomax and Avodart. Monitor urine output (6) DVT prophylaxis: Low-dose Lovenox subcu History of Present Illness Chief Complaint: Lightheadedness and weakness Primary Care Provider: Rodolfo Crum DO 79-year-old male who was recently hospitalized with MSSA cellulitis of the right wrist area after MOH as procedure for resection of melanoma. 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 However he took the West catheter out himself after about 3 days. He is stating he is not having any trouble with urination at this time. Creatinine however is up to 2.1 and it was 1.4 during recent hospitalization. He was treated with intravenous vancomycin and Zosyn while hospitalized and discharged on doxycycline which appears to be causing gastric side effects with nausea and anorexia. His oral intake has dropped off significantly and he appears to be volume depleted. His Dilantin level is also significantly elevated at 46. I do not believe he has acute renal failure from vancomycin toxicity but probably has prerenal insufficiency related to volume depletion from poor oral intake. Doxycycline will be discontinued and he will be started on intravenous clindamycin for the time being. Postvoid residual is only 200 in the ED and West catheter at this time is not required but this will be followed. Renal ultrasound is pending. IV fluids will be given at 150 cc/h initially then tapered off as he improves. Dilantin will be placed on hold with daily levels ordered. Allergies Allergy/AdvReac Type Severity Reaction Status Date / Time No Known Allergies Allergy Verified 09/18/18 13:46 Home Medications Home Medications Medication Instructions Recorded Confirmed Type aspirin 81 mg PO QPM 09/18/18 04/03/19 History phenytoin sodium extended 300 mg PO TID 09/18/18 04/03/19 History [Dilantin Extended] dutasteride [Avodart] 0.5 mg PO DAILY 03/22/19 04/03/19 History tamsulosin [Flomax] 0.4 mg PO DAILY 03/22/19 04/03/19 History doxycycline hyclate 100 mg PO BID 14 Days #28 cap 03/24/19 04/03/19 Rx Past Med/Surg History Medical History Hx of seizure disorder last seizure 15 yr ago Hypertension Malignant melanoma current issue on left side Surgical History History of cataract surgery both eyes History of open reduction and internal fixation (ORIF) procedure right - as child Hx of amputation of foot left Hx of colonoscopy Family History Other Family history non-contributory Social History Preferred Language: Niuean Communication Ability: Effective Beliefs That Will Affect Care: None marital status: Current Living Situation: Family Feels Safe at Home: No Is there a partner from a previous relationship who is making you feel unsafe now?: No Smoking Status: Never smoker Hx Alcohol Use: Yes Alcohol type: beer Hx Substance Use: No Review of Systems Review of Systems: Constitutional-no fever or chills. Hard of hearing. Generalized weakness and lightheadedness when he is upright ENT-no blurred vision, no double vision, no epistaxis, no sore throat Respiratory-no cough, no wheezing, no shortness of breath Cardiac-no palpitations, no chest pain, no syncope GI-no nausea, vomiting, diarrhea, melena, hematochezia -no urinary retention, no urinary incontinence, no dysuria, no hematuria Musculoskeletal-no joint pain, no muscle tenderness Skin-no bruising, no rashes, no pruritus Neuro-no isolated weakness, no paresthesia, no weakness Psych-no depression, no anxiety Physical Exam Physical Exam: General-alert and oriented x3, no fevers, no chills HEENT-head atraumatic and normocephalic, TMs intact bilaterally, pupils equal and reactive to light, extraocular muscles intact Neck-no lymphadenopathy or thyromegaly, trachea midline Chest-clear to auscultation percussion. No rales wheezing or rhonchi Cardiac-regular rate and rhythm, normal S1 and S2, no murmurs Abdomen-normal bowel sounds, nontender, no hepatosplenomegaly Extremities-no cyanosis, clubbing, or edema. Right wrist surgical site is healing and cellulitis has significantly improved after recent treatment. 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 Generalized weakness Psych-normal affect, normal mood Results & Data Vital Signs (Past 12 Hours) Vital Signs Temp Pulse Pulse Resp BP BP Pulse Ox 04/03/19 10:16 58 L 16 148/95 H 98 04/03/19 09:10 100 04/03/19 08:24 36.8 C 72 16 101/77 98 Laboratory Results 04/03/19 08:55 04/03/19 08:55 PG Care Time/CCT Total # of Minutes Spent Total Time Spent with Patient: Total time spent is greater than 50% in coordination of care (as documented) at patient's floor/unit and/or counseling patient: (1) Dilantin toxicity Encounter type: initial encounter Injury intent: accidental or unintentional Qualified Code(s): T42.0X1A - Poisoning by hydantoin derivatives, accidental (unintentional), initial encounter
[2019-04-03] MEDS ORDERED: ACETAMINOPHEN 325 MG TAB PO PRN (12:42)
[2019-04-03] MEDS ORDERED: ONDANSETRON INJ 2 MG/ML 2 ML VIAL IV PRN (12:42)
[2019-04-03] MEDS ORDERED: ZOLPIDEM TARTRATE 5 MG TAB PO PRN (12:42)
[2019-04-03] MEDS ORDERED: ALUMINUM/MAGNESIUM SUSP 30 ML UDC PO PRN (12:42)
[2019-04-03] MEDS: SODIUM CHLORIDE 0.9% 1000ML 1,000 ML IV SCH ×2 (13:45→21:07)
[2019-04-03] MEDS: CLINDAMYCIN 600 MG in DEXTROSE 5% 50 ML IV SCH ×2 (13:56→21:07)
[2019-04-03 14:09] LABS: INR 1.2 (0.9-1.1); Prothrombin Time 12.4 Seconds (9.0-12.0)
[2019-04-03] MEDS: AVODART - ORDER AWAITING ACTION SCH ×2 (14:32→23:51)
[2019-04-03 14:52] LABS: Appearance Urine Clear (Clear); Bilirubin Urine Negative (Negative); Blood Urine Negative (Negative); Color Urine Yellow; Glucose Urine UA Negative (Negative); Ketones Urine Negative (Negative); Leukocyte Esterase Urine Negative (Negative); Nitrite Urine Negative (Negative); Protein Urine Negative (Negative); Specific Gravity Urine 1.014 (1.000-1.030); Urobilinogen Urine Negative (Negative)
[2019-04-03] MEDS ORDERED: ENOXAPARIN INJ 30 MG/0.3 ML SYR SQ SCH (15:00)
--- NOTE | 2019-04-03 16:32 | Ultrasound Report ---
ULTRASOUND KIDNEYS AND BLADDER CLINICAL HISTORY: Acute renal insufficiency. COMPARISON STUDY: Renal ultrasound dated 03/23/[address] dated 09/09/2018 TECHNIQUE: Real-time, grayscale, and color flow sonography of the kidneys and bladder is performed. I mages are reviewed in the transverse and longitudinal planes. FINDINGS: Kidneys: The kidneys demonstrate mild cortical atrophy and are normal in echotexture. The right kidne y measures 10.0 cm and the left kidney measures 10.0 cm in length. There is moderate bilateral hydroureteronephrosis. No shadowing renal calculi are identified. There is no sonographic evidence of contour deforming renal mass lesion. No perinephric fluid is identified. Bladder: Bladder is markedly distended. The bladder wall is thickened and trabeculated indicating chr onic outlet obstruction. Bladder diverticula are noted. The bladder remained markedly distended post void. Ureteral jets were not seen. IMPRESSION: 1. The bladder is markedly distended and there is evidence of chronic outlet obstruction. Significant bladder distention persisted on the post void imaging. 2. There is moderate bilateral hydroureteronephrosis, new on the right and increased on the left from 03/23/2019. 3. Hydronephrosis is likely related to marked bladder distention. Clinical correlation will be requir ed. Electronically signed by: Shane Singh M.D. 04/03/2019 4:31 PM
--- NOTE | 2019-04-03 20:45 | Emergency Department Note ---
Entered by Kristina Turner acting as a scribe for Jersey Devi MD History of Present Illness General Chief complaint: Dizziness Stated complaint: DIZZY, UNABLE TO WALK Time Seen by Provider: 04/03/19 08:33 Source: patient History of Present Illness Onset (ago): day(s) 2 Location: head Pain Consistency: + other (persistent) Maximum Pain Intensity: 2 Quality: + other (dizziness) Exacerbated By: + movement (standing up) Associated symptoms: + nausea/vomiting (nausea), + weakness (unable to stand on legs) and + other (falls, head trauma) The patient is a 79 year old male that is presenting to the Emergency Room with complaints of persistent weakness and dizziness that has been worsening over the past 2 days. The patient reports that his legs give out from underneath him any time he stands up. He notes that he has fallen a couple of times since his sym ptoms began. He reports that he hit his head on concrete during one of these falls. He states that he has been unable to eat secondary to intermittent nausea. He notes that he feels nauseous any time he tries to eat and states that he feels full after a couple of bites of food. The patient reports that he has recently been placed on antibiotics for a infection in his right arm, which he states is improving. He denies any history of acid reflux but notes that he feels like he has a lump in his chest. The patient reports that he has lost 20 lbs recently due to his inability to eat. He notes that he has an artificial left leg which makes it difficult for him to balance. He states that he is reshma ing Dilantin due to a history of seizures. He notes that his dosage of Dilantin has not changed since his weight loss. Home Medications Home Medications Medication Instructions Recorded Confirmed Type aspirin 81 mg PO QPM 09/18/18 04/03/19 History phenytoin sodium extended 300 mg PO TID 09/18/18 04/03/19 History [Dilantin Extended] dutasteride [Avodart] 0.5 mg PO DAILY 03/22/19 04/03/19 History tamsulosin [Flomax] 0.4 mg PO DAILY 03/22/19 04/03/19 History doxycycline hyclate 100 mg PO BID 14 Days #28 cap 03/24/19 04/03/19 Rx Allergies Allergy/AdvReac Type Severity Reaction Status Date / Time No Known Allergies Allergy Verified 09/18/18 13:46 Past Med/Surg History Medical History Prostatism (Chronic) Doxycycline adverse reaction (Acute) Volume depletion (Acute) Acute prerenal failure (Acute) Dilantin toxicity (Acute) Hx of seizure disorder last seizure 15 yr ago Hypertension Malignant melanoma current issue on left side Surgical History History of cataract surgery both eyes History of open reduction and internal fixation (ORIF) procedure right - as child Hx of amputation of foot left Hx of colonoscopy Family History Other Family history non-contributory Social History Preferred Language: Thai Communication Ability: Effective Capability Lead Required: No Beliefs That Will Affect Care: None marital status: Current Living Situation: Spouse and Family Other Information That Helps Us Care for You: No Feels Safe at Home: No Is there a partner from a previous relationship who is making you feel unsafe now?: No Any Concerns about Your Family Situation: No Safety Concerns: Feels Safe At This Time Smoking Status: Never smoker Do You Dip or Chew Tobacco: No Hx Alcohol Use: Yes Alcohol type: beer Review of Systems See HPI for pertinent positives & negatives. and A total of 10 systems reviewed and were otherwise negative Physical Exam Vital Signs Vital Signs - 24 hr 04/03/19 08:24 04/03/19 09:10 04/03/19 10:16 Temperature 36.8 C Temperature Source Oral Sepsis Recent Fever Within 48 Hours No Sepsis New/Unexplained Change in Mental Status No Sepsis Action Taken by Nursing No Action Required Pulse Rate 72 Pulse Rate [Apical] 58 L Pulse Rhythm [Apical] Regular Respiratory Rate 16 16 Respiratory Effort / Characteristics Non-Labored Non-Labored Respiratory Depth Normal Normal Respiratory Pattern Regular Blood Pressure 101/77 Blood Pressure [Right Arm] 148/95 H Blood Pressure Mean 85 Blood Pressure Mean [Right Arm] 112 Blood Pressure Position Sitting Pulse Oximetry 98 100 98 Oxygen Delivery Method Room Air Room Air Room Air GENERAL: Awake, alert, fatigued-appearing, cachectic, in no distress HENT: Normocephalic, atraumatic. Oropharynx with dry mucous membranes and oth erwise unremarkable. EYES: Normal conjunctiva. Sclera non-icteric. EOMI. No nystamgus. PEARRL. NECK: Supple. No nuchal rigidity. FROM. No JVD. RESPIRATORY: Scant intermittent wheeze, otherwise clear. CARDIAC: Regular rate, normal rhythm. Extremities warm and well perfused. Pulses equal. ABDOMEN: Soft, non-distended. No tenderness to palpation. No rebound or guarding. No masses. RECTAL: Deferred. MUSCULOSKELETAL: Chest examination reveals no tenderness. The back is symmetrical on inspection without obvious abnormality. There is no CVA tendern ess to palpation. No joint edema. LOWER EXTREMITIES: Calves are equal size bilaterally and non-tender. No edema. No discoloration. NEURO: Normal sensorium. No sensory or motor deficits noted. Cerebellar function intact, including finger to nose, alternating palms, heel to castaneda. Subtle generalized weakness throughout 4+/5 strength x 4 ext.. SKIN: No rash or jaundice noted. Ecchymosis and skin tear to left shoulder. Course 0843:The patient was evaluated in room A12B. A complete history and physical examination was performed. 0907: I reviewed the patient's records from March 18, 2019. The patient received surgery on a malignant melanoma on his right arm. He developed cellulitis after the procedure. The patient was given Vancomycin and Zosyn during his stay, and he was discharged on Doxycycline. 1049: I discussed the patient's case with Dr. Sneed [facility] [place], who will evaluate the patient for further management and care. 1055: Upon reevaluation, the patient is resting comfortably. I discussed laboratory and radiographic results with the patient. He verbalized agreement of the treatment plan. The patient will be evaluated for further management and care. Administered Medications Aspirin (Ecotrin Ectab) 81 mg PO QPM [facility] Stop: 05/03/19 20:59 Last Admin: 04/03/19 20:16 Dose: 81 mg Documented by: [id number] Enoxaparin Sodium (Lovenox) 30 mg SQ Q24H [facility] Stop: 05/03/19 14:59 Last Admin: 04/03/19 16:28 Dose: 30 mg Documented by: [id number] Sodium Chloride (Nss 1000ml) 1,000 mls @ 150 mls/hr IV .Q6H40M [facility] Stop: 05/03/19 12:41 Last Admin: 04/03/19 13:45 Dose: 150 mls/hr Documented by: [id number] Clindamycin Phosphate 600 mg/ (Dextrose) 54 mls @ 100 mls/hr IV Q8H [facility] Stop: 04/13/19 13:59 Last Infusion: 04/03/19 14:31 Dose: 0 mls/hr Documented by: [id number] Admin: 04/03/19 13:56 Dose: 100 mls/hr Documented by: [id number] Miscellaneous (Order Awaiting Action) 1 ea N/A QS [facility] Stop: 05/03/19 15:59 Last Admin: 04/03/19 14:32 Dose: Not Given Documented by: [id number] Discontinued Medications Al Hydrox/Mg Hydrox/Simethicone () Confirm Administered Dose 1 dose PO .STK-MED ONE Stop: 04/03/19 09:32 Last Admin: 04/03/19 09:33 Dose: 1 dose Documented by: [id number] Al Hydrox/Mg Hydrox/Simethicone 18 ml/ Lidocaine HCl 6 ml/ BARCODE IDENTIFIER 1 ea 0 ml PO ONE ONE Stop: 04/03/19 08:51 Last Admin: 04/03/19 09:35 Dose: Not Given Documented by: [id number] Famotidine (Pepcid) 20 mg PO NOW ONE Stop: 04/03/19 08:51 Last Admin: 04/03/19 09:32 Dose: 20 mg Documented by: [id number] Sodium Chloride (Nss) 500 mls @ 999 mls/hr IV .Q31M ONE Stop: 04/03/19 09:03 Last Infusion: 04/03/19 09:36 Dose: 0 mls/hr Documented by: [id number] Admin: 04/03/19 09:02 Dose: 999 mls/hr Documented by: [id number] Ondansetron HCl (Zofran) 4 mg IV NOW STA Stop: 04/03/19 08:51 Last Admin: 04/03/19 09:32 Dose: 4 mg Documented by: [id number] Medical Decision Making Differential Diagnosis Differential diagnosis: Etiologies such as metabolic, infection, hypo/hyperglycemia, electrolyte abnormalities, cardiac sources, intracerebral event, toxicologic, neurologic, as well as others were entertained. Medical Records Attestation: I reviewed the patient's medical records. Home Medications Current Medication List: was personally reviewed by me Laboratory Data Attestation: I reviewed the patient's lab results. Result diagrams: 04/03/19 08:55 04/03/19 08:55 Lab Results 04/03/19 04/03/19 04/03/19 Range/Units 08:55 08:55 08:55 WBC 4.99 (4.8-10.8) K/uL RBC 3.44 L (4.7-6.1) M/uL Hgb 11.2 L (14.0-18.0) g/dL Hct 32.2 L (42-52) % MCV 93.6 (80-100) fL MCH 32.6 (25-34) pg MCHC 34.8 (32-36) g/dL RDW Std Deviation 50.9 H (36.4-46.3) fL RDW Coeff of Lexie 14.9 H (11.5-14.5) % Plt Count 270 (130-400) K/uL MPV 8.5 (7.4-10.4) fL Immature Gran % (Auto) 0.2 % Neut % (Auto) 47.1 % Lymph % (Auto) 40.5 % [place] % (Auto) 11.4 % Eos % (Auto) 0.2 % Baso % (Auto) 0.6 % Immature Gran # (Auto) 0.01 (0.00-0.02) K/uL Neut # (Auto) 2.35 (1.4-6.5) K/uL Lymph # (Auto) 2.02 (1.2-3.4) K/uL [place] # (Auto) 0.57 (0.11-0.59) K/uL Eos # (Auto) 0.01 (0-0.5) K/uL Baso # (Auto) 0.03 (0-0.2) K/uL Sodium 138 (136-145) mmol/L Potassium 4.4 (3.5-5.1) mmol/L Chloride 104 (98-107) mmol/L Carbon Dioxide 22 (21-32) mmol/L Anion Gap 12.0 H (3-11) BUN 47 H (7-18) mg/dl Creatinine 2.12 H (0.6-1.4) mg/dl Est Cr Clr Drug Dosing Not Reportable Est GFR ( Amer) 33.5 Est GFR (Non-Af Amer) 28.9 BUN/Creatinine Ratio 22.1 H (10-20) Glucose 126 H (70-99) mg/dl Calcium 9.8 (8.5-10.1) mg/dl Phosphorus 3.9 (2.5-4.9) mg/dl Magnesium 2.2 (1.8-2.4) mg/dl Total Bilirubin 0.5 (0.2-1) mg/dl AST 20 (15-37) U/L ALT 28 (12-78) U/L Alkaline Phosphatase 81 (45-117) U/L Troponin I < 0.015 (0-0.045) ng/ml Total Protein 7.2 (6.4-8.2) gm/dl Albumin 3.3 L (3.4-5.0) gm/dl Globulin 3.9 (2.5-4.0) gm/dl Albumin/Globulin Ratio 0.8 L (0.9-2) Lipase 172 (73-393) U/L TSH 0.651 (0.300-4.500) uIu/ml Phenytoin 46.5 H* (10-20) mcg/ml Imaging Data Radiologist's Impression: Radiology results as stated below per my review and the radiologist's interpretation: SINGLE VIEW CHEST CLINICAL HISTORY: Atypical chest pain. FINDINGS: An AP, portable, upright chest radiograph is correlated with chest CT dated 04/15/2017. The examination is degraded by portable technique and patient rotation. The heart is mildly enlarged. The pulmonary vasculature is noncongested. Emphysema and chronic interstitial thickening are similar to previous. No airspace consolidation or large pleural effusion is identified. No pneumothorax is seen. The skeletal structures are osteopenic. There are healed bilateral rib fractures. Degenerative changes noted in the thoracic spine. IMPRESSION: Mild cardiac enlargement and emphysema with no acute cardiopulmonary abnormality. Electronically signed by: Shane Singh M.D. 04/03/2019 8:[address] SCAN OF THE BRAIN WITHOUT IV CONTRAST CLINICAL HISTORY: Fall. Headache. Weakness. COMPARISON STUDY: CT of the brain dated 04/15/2017. TECHNIQUE: Unenhanced axial CT scan of the brain is performed from the vertex to the skull base. A dose lowering technique was utilized adhering to the principles of ALARA. CT DOSE: 708.99 mGy.cm FINDINGS: Brain parenchyma: There are age-related involutional changes noting moderate subcortical and periventricular microangiopathic change. There is no hemorrhage, mass effect, or evidence of acute territorial ischemia by CT criteria. Crow[place]- white matter differentiation is preserved. No extra-axial fluid collection is seen. Ventricles, sulci, cisterns: Prominent secondary to involutional change. Intracranial vasculature: There is atherosclerotic calcification of the cavernous carotid and vertebral arteries. Calvarium: The skeletal structures are osteopenic. No depressed calvarial fracture is seen. Sinuses and mastoids: The visualized paranasal sinuses are clear. The mastoid air cells are well pneumatized. Orbits: The bony orbits are grossly intact. There are bilateral ocular lens implants. IMPRESSION: There is no hemorrhage, mass effect, or evidence of acute territorial ischemia by CT criteria. Electronically signed by: Shane Singh M.D. 04/03/2019 10:04 AM ECG Data Attestation: I personally reviewed and interpreted this ECG as follows: Indication: weakness Rate (beats per minute): 61 Rhythm: normal sinus Findings: + left axis deviation; no ST depression, no ST elevation and no acute ischemic change Blood Pressure Blood Pressure Findings: Elevated blood pressure Blood Pressure Disposition: elevated BP felt to be situational MDM Narrative The patient is a pleasant 79 y/o gentleman with a pmhx of sz d/o on Dilantin who presents to the emergency department with generalized weakness and inability to ambulate at his baseline with fall 2 days ago per HPI. Patient's symptoms occur in the setting of recent medical course of Moh's surgery of RUE with subsequent cellulitis of extremity with hospitalization and course of Vancomycin and Zosyn followed by Doxycycline. On arrival the patient is fatigued appearing but in NAD, AFVSS. Patient appears clinically dry. RUE cellulitis resolved. Abrasion and ecchymosis to left shoulder without ttp and FROM intact. Subtle generalized weakness throughout with 4+/5 strength x 4 ext. EKG without evidence of acute ischemia. CXR negative for acute process. WBC and platelets wnl. H/H 11.2/32.2 improved from recent. Cr. worsened from 1.4 ten days ago to 2.12 today. BUN/cr > 20 suggesting prerenal component. Although, patient was noted to have hydronephrosis on recent admission though he has no urinary retention at this time with only 200cc on RN bladder scan. Chemistry without acidosis. LFTs and electrolytes unremarkable. Dilantin level supratherapeutic at 46.5. Thus, Dilantin toxicity suspected in the setting of the patient's NINA. Patient feeling some improvement after IVF hydration. Case was discussed with Dr. Sneed, [facility] [place] hospitalist, who will evaluate the patient for admission. Impression & Plan Dilantin toxicity, Acute kidney insufficiency Discharge Plan Visit Data *Final* Discharge Date/Time: 04/03/19 12:02 Chief Complaint: Dizziness Stated Complaint: DIZZY, UNABLE TO WALK ED Provider: Jersey Devi Discharge Problem: Dilantin toxicity, Acute kidney insufficiency Patient Disposition: Admitted As Inpatient Discharge Instructions Interventions: ED Discharge Assessment Last Done: 04/03/19 12:02 The scribe's documentation has been prepared under my direction and personally reviewed by me in its entirety. I confirm that the note above accurately reflects all work, treatment, procedures, and medical decision making performed by me.
[2019-04-03] MEDS ORDERED: ASPIRIN 81 MG ECTAB PO SCH (21:00)
[2019-04-04] MEDS: SODIUM CHLORIDE 0.9% 1000ML 1,000 ML IV SCH ×2 (03:30→07:34)
[2019-04-04] MEDS: CLINDAMYCIN 600 MG in DEXTROSE 5% 50 ML IV SCH (06:21)
[2019-04-04] MEDS: AVODART - ORDER AWAITING ACTION SCH (07:07)
[2019-04-04 07:37] LABS: Basophils # (auto) 0.03 K/uL (0-0.2); Basophils % (auto) 0.5 %; Eosinophils # (auto) 0.04 K/uL (0-0.5); Eosinophils % (auto) 0.7 %; Hematocrit (blood only) 28.9 % (42-52); Hemoglobin 9.9 g/dL (14.0-18.0); Lymphocytes # (auto) 2.28 K/uL (1.2-3.4); Mean Corpuscular Hgb Conc 34.3 g/dL (32-36); Mean Corpuscular Volume 94.1 fL (80-100); Mean Platelet Volume 8.8 fL (7.4-10.4); Monocytes # (auto) 0.74 K/uL (0.11-0.59); Neutrophils # (auto) 2.61 K/uL (1.4-6.5); Neutrophils % (auto) 45.8 %; Platelet Count 214 K/uL (130-400); RDW Coefficient of Variation 14.8 % (11.5-14.5); RDW Standard Deviation 50.6 fL (36.4-46.3); Red Blood Count 3.07 M/uL (4.7-6.1)
[2019-04-04 08:20] LABS: BUN Creatinine Ratio 22.7 (10-20); Calcium 8.1 mg/dl (8.5-10.1); Creatinine Clr Calc Pharmacy 30.3 ml/min; Est GFR (African American) 45.4; Est GFR (Non-African American) 39.2
[2019-04-04] MEDS ORDERED: TAMSULOSIN HCL 0.4 MG CAP PO SCH (09:00)
--- NOTE | 2019-04-04 15:56 | Discharge Summary ---
Date of Service April 04, 2019 Admission HPI Per Admitting Provider 79-year-old male who was recently hospitalized with MSSA cellulitis of the right wrist area after MOH as procedure for resection of melanoma. 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 However he took the West catheter out himself after about 3 days. He is stating he is not having any trouble with urination at this time. Creatinine however is up to 2.1 and it was 1.4 during recent hospitalization. He was treated with intravenous vancomycin and Zosyn while hospitalized and discharged on doxycycline which appears to be causing gastric side effects with nausea and anorexia. His oral intake has dropped off significantly and he appears to be volume depleted. His Dilantin level is also significantly elevated at 46. I do not believe he has acute renal failure from vancomycin toxicity but probably has prerenal insufficiency related to volume depletion from poor oral intake. Doxycycline wi ll be discontinued and he will be started on intravenous clindamycin for the time being. Postvoid residual is only 200 in the ED and West catheter at this time is not required but this will be followed. Renal ultrasound is pending. IV fluids will be given at 150 cc/h initially then tapered off as he improves. Dilantin will be placed on hold with daily levels ordered. Principal Diagnosis Obstructive uropathy causing NINA Discharge Exam Constitutional WD/WN, vitals as above Eyes EOM intact bilaterally; no conjunctival abnormality ENMT external ear and nose normal, oropharynx normal Neck trachea midline, no thyromegaly normal visual inspection Respiratory normal respiratory effort, lungs clear to auscultation no respiratory distress Cardiovascular RRR, no murmur, no edema Gastrointestinal (Abdomen) Inspection/Auscultation: abdomen normal to inspection; abdomen not distended Musculoskeletal no cyanosis or clubbing, extremities motor strength 5/5 Skin no rashes, warm and dry Neurologic moves all extremities and awake Psychiatric Orientation: alert, oriented to person and cooperative Genitourinary West Discharge Data Allergies Allergy/AdvReac Type Severity Reaction Status Date / Time No Known Allergies Allergy Verified 09/18/18 13:46 Consultations 04/03/19 10:49 ED Decision to Admit Stat 04/04/19 12:04 Consult HANG eligibility worker Routine Ordered Studies 04/03/19 08:50 CT head/brain wo con Stat 04/03/19 12:42 US renal/blad retro comp Routine Hospital Course (1) Acute prerenal failure: Renal failure due to prerenal from poor PO intake and post-renal. Renal ultrasound showed significant blockage and hydronephrosis. West inserted which drained 1300 mL. - Discharged with West in place. - NINA resolving by the next day. (2) Volume depletion: Administered intravenous fluids. (3) Doxycycline adverse reaction: Discontinued doxycycline. - Surgical site well healed. No need to finish his 14-day course of antibiotics. He reports he only had about 3 days left. (4) Dilantin toxicity: Held Dilantin. - Level came down to ~30. This will correct as his Cr returns to normal. He was told to hold his Dilantin today and resume tomorrow. - Get level with PCP in 1 week. (5) Prostatism: Continued Flomax and Avodart. - Follow up with urology. reporter order put in as he missed his appt on 04/01. (6) DVT prophylaxis: Low-dose Lovenox subcu Total Time Total Time Spent Total Time Spent (In Minutes): 35 Total Time Includes: Examination of the Patient and Communication With Other Providers Discharge Plan Discharge Items Patient Disposition: Home - Self-Care Reason For Visit: ACUTE PRERENAL FAILURE, VOLUME DEPLETION, Discharge Diagnosis: Kidney injury from bladder back-up Discharge Goals: Decrease discomfort and Improve function Activity: Resume your previous activity Non-emergency contact: Primary Care Provider and Urologist Call non-emergency contact if: your symptoms worsen and your pain is not controlled Follow-up/Referrals: Rodolfo Crum DO [Primary Care Provider] - Neyda Hurley CRNP [Nurse Practitioner] - (Please see the urologist in their office as soon as able. You had an appointment on April 01, and it looks like you maybe missed that appointment. Please follow up with them to be sure you don't have a re-occurrence of this issue.) Diet: Regular Addtl Provider Instructions: Please see the urologist in the next week. Our nurses will call you to help schedule an appointment or call the office on Friday morning. STOP your antibiotics. You only have a few days left, and I think it was making your appetite worse. Your hand looks good and does not have any signs of infection in it. Finally, I sent a script for Avodart to your pharmacy. You should restart this until you see the urology doctors this week. Prescriptions: Continued phenytoin sodium extended [Dilantin Extended] 100 mg Capsule 300 mg PO TID RF: 0 aspirin 81 mg Tablet,Delayed Release (Dr/Ec) 81 mg PO QPM RF: 0 tamsulosin [Flomax] 0.4 mg capsule 0.4 mg PO DAILY RF: 0 dutasteride [Avodart] 0.5 mg capsule 0.5 mg PO DAILY Qty: 30 RF: 0 Discontinued doxycycline hyclate 100 mg capsule 100 mg PO BID 14 Days Qty: 28 RF: 0 Stand-Alone Forms: My [facility] Discharge Orders: Discharge Order (Routine); Ordered 04/04/19 Ordered By: Jonh Hernandez Admission Data Admit Date/Time: 04/03/19 11:25 Attending Provider: Jonh Hernandez Admit Provider: Kwan Sneed Primary Care Provider: Rodolfo Crum Other Providers: Jonh Hernandez Service: Telemetry Other Interventions: Discharge Summary Assessment (RN) Last Done: 04/04/19 11:19 DC Date/Time DO NOT enter until pt leaves facility: 04/04/19 12:55
== END 2019-04-04 12:55 | disposition home or self-care (01) | DRG 699 ==
LOC: ED 08:16 → 2S 11:25 → SUATTDRO 11:25 → 2S 12:02

== ENCOUNTER 2019-07-07 07:57 | Observation (INO) ==
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
[~2019-07-07 07:57] MED LIST changes: -ASPI-232 PO; +CEFAZOLIN 2000MG 2,000 MG/15 ML SYR IV SCH; -DLN100 PO; -LISI40TA PO; +LR 15ML/HR IV SCH
--- NOTE | 2019-07-07 09:46 | Nuclear Medicine Report ---
NM sentinel node melanoma CLINICAL HISTORY: 79 years-old Male presenting with melanoma of the left flank. COMPARISON: None. PROCEDURE: Using standard aseptic technique, 4 intradermal injections of 0.5 mCi of Lymphoseek were administered in the intradermal left flank at the site of the known lesion, where there is an associated surgical scar. The patient tolerated the procedure well. There were no immediate complications. The patient was subsequently transported to the surgical suite. Imaging was obtained at the referring physician's request demonstrating 2 adjacent avid lymph nodes in the left inguinal region, which wer e marked. An additional 2 lymph nodes are evident in the left axilla though one is significantly more avid than the second adjacent lymph node. Only the more avid lymph node was marked. IMPRESSION: Injection of 0.5 mCi of Lymphoseek in the left flank with left inguinal and left axillary lymph nodes marked for surgical dissection. Electronically signed by: Chivo Pickens M.D. 07/07/2019 9:45 AM
--- NOTE | 2019-07-07 11:30 | History & Physical Bridge Note ---
Date of Service July 07, 2019 History & Physical Bridge Note I have examined the patient, reviewed the History & Physical and in the interval since the performance of the History & Physical I have noted the following changes of clinical significance: [place] lymph node injected, lymphoscintagraphy with axillary and inguinal lymph nodes on left. No changes noted
[2019-07-07] MEDS ORDERED: PHENYLEPHRINE 100MCG/ML 5ML SYR IV PRN (12:08)
[2019-07-07] MEDS ORDERED: ONDANSETRON INJ 2 MG/ML 2 ML VIAL IV PRN ×3 (12:08→19:05)
[2019-07-07] MEDS ORDERED: ATROPINE SULFATE 0.1 MG/ML 10ML SYR IV PRN (12:08)
[2019-07-07] MEDS ORDERED: ePHEDrine sulfate 50 MG/ML AMP IV PRN (12:08)
[2019-07-07] MEDS ORDERED: MEPERIDINE HCL 25 MG/ML CARP IV PRN (12:08)
[2019-07-07] MEDS ORDERED: LABETALOL HCL IV 5 MG/ML 20ML IV PRN (12:08)
[2019-07-07] MEDS ORDERED: LIDOCAINE HCL 2% 2 ML VIAL/AMP(20MG/ML) INFIL ONE (12:37)
[2019-07-07] MEDS ORDERED: ONDANSETRON INJ 2 MG/ML 2 ML VIAL ONE (12:37)
[2019-07-07] MEDS ORDERED: PROPOFOL IV EMULSION 10 MG/ML 20 ML VIAL IV ONE (12:37)
[2019-07-07] MEDS ORDERED: fentaNYL citrate 100 MCG/2 ML VIAL ONE ×2 (12:37→14:43)
[2019-07-07] MEDS ORDERED: BUPIVACAINE 0.5 % 5 MG/1 ML MPF 30ML VIAL ONE (12:50)
[2019-07-07] MEDS ORDERED: MIDAZOLAM HCL 1 MG/ML 2ML VIAL ONE (12:56)
[2019-07-07] MEDS ORDERED: LABETALOL HCL IV 5 MG/ML 20ML IV ONE ×2 (14:02→18:28)
[2019-07-07] MEDS ORDERED: HydrALAZINE HCL 20 MG/ML VIAL ONE (15:11)
[2019-07-07] MEDS ORDERED: MoRPHine SULFATE 4 MG/ML 1 ML CARP\\VIAL IV PRN (15:21)
[2019-07-07] MEDS ORDERED: MoRPHine SULFATE 2 MG/ML CARP IV PRN (15:21)
[2019-07-07] MEDS ORDERED: OXYCODONE/ACETAMINOPHEN 5mg/325mg TAB PO PRN ×2 (15:21)
[2019-07-07] MEDS ORDERED: SODIUM CHLORIDE 0.9% 1000ML 1,000 ML IV SCH (15:30)
--- NOTE | 2019-07-07 15:36 | Operative Report ---
PG Post Operative Report Pre & Post Diagnosis Operation Date: 07/07/19 13:00 Pre-Op Diagnosis: Melanoma Post-Op Diagnosis: Melanoma Procedure Operation Date: 07/07/19 13:00 Actual Procedures p Wide Local Excision of Left Flank Melanoma(Left) - Saeid Carlson DO, FACS s [place] Lymph Node Biopsies of Left Axilla and Left Groin(Left) - Saeid Carlson DO, FACS Surgeon Saeid Carlson DO, FACS Management Technician Agus Andrew Estimated Blood Loss 7 Findings Consistent with Post-Op Diagnosis Single axillary sentinel lymph node identified, 200 on gamma probe ex vivo. 2 left inguinal lymph nodes identified, approximately 120 on gamma probe ex vivo. Axilla and left inguinal region silent after excision. Wide local excision performed with margins, 6 cm x 20 cm. Additional deep margin taken to include muscle. Flaps were raised superiorly and inferiorly, skin closed in layers. Specimens Left axillary sentinel lymph node biopsy Left inguinal sentinel lymph node biopsy Wide local excision left flank melanoma Additional deep margin Drains None Anesthesia Type General Complications none Disposition Accompanied Patient To Recovery: No Disposition: Recovery Room Indications 79-year-old male with a history of an intermediate thickness of his left leg status post excision, now with recurrence. He also never had sentinel lymph node biopsy. Plan for wide local excision of left flank recurrent melanoma, and sentinel lymph node biopsies. The risks of the procedure were discussed, all questions were answered, and the patient agreed to proceed with surgery as planned. Description of Procedure Patient had a sentinel lymph node injection performed prior to the surgery. Lymphoscintigraphy was performed prior to the procedure and there was a single lymph node identified in the left axilla and 2 sentinel lymph nodes identified in the left inguinal region. The axilla and left groin were examined with a gamma probe and confirmed uptake into both the axilla and groin. The patient was properly identified, consented, and taken to the operating room where he was placed in the supine position. General endotracheal anesthesia was induced. SCDs and a safety belt were placed. Preoperative antibiotics were administered. The patient's left axilla and groin were prepped and draped in the standard sterile fashion. Surgical timeout was performed and all parties were in agreement that this was the correct patient and procedure to be performed and we continued as planned. An incision was made in the left axilla in a natural skin crease and deepened down to subcutaneous tissue with electrocautery. The gamma probe was used to localize the sentinel lymph node which read 200 ex vivo. The axilla was reexamined with the gamma probe and was silent. The wound was irrigated and hemostasis confirmed. The wound was closed with 3-0 Vicryl deep dermal sutures followed by 4-0 Monocryl running subcuticular suture. Dermabond was placed over the incision. Incision was made in the left groin and deepened down the subcutaneous tissue with electrocautery. The gamma probe was used to localize the sentinel lymph node which read to presently 120 ex vivo. Left groin was reexamined and additional lymph node was identified which measured approximately 115 ex vivo. Both of these were excised. Left groin was reexamined with a gamma probe and was found to be silent. Wound was irrigated and hemostasis confirmed. The skin was closed with interrupted 3-0 Vicryl deep dermal sutures followed by 4-0 Monocryl running subarticular suture. Dermabond was placed over the incision. Attention then turned to the left flank melanoma. The patient was repositioned in the lateral decubitus position with the left side up. His left flank was prepped and draped in standard sterile fashion. A timeout was performed again and we proceeded with surgery. The planned incision would be 20 cm x 6 cm oriented in an oblique fashion. This incision was made after the injection of local anesthetic and deepened down through subcutaneous tissue with electrocautery. The dissection continued down to the muscular fascia around the recurrent melanoma. Specimen was oriented and passed off the table. An additional deep margin containing some muscular fibers was excised and the margin was marked. The wound was irrigated and hemostasis achieved. The muscular fascia was closed with 2-0 Vicryl suture. Flaps were raised overlying the muscular fascia to take tension off of the closure. This was for several centimeters both superiorly and inferiorly. The skin was then closed with interrupted 3-0 Vicryl deep dermal sutures followed by interrupted 2-0 nylon simple interrupted sutures. Sterile dressing was applied. The patient was extubated in the operating room and taken to the PACU where she recovered without apparent incident. All sponge, instrument and needle counts were correct at the conclusion of the procedure. The patient tolerated the procedure well. The physician's assistant plant control operator was present and scrubbed for the entirety of the case. He was critical in positioning the patient, prepping and draping, retraction and exposure, excision of the specimen and lymph nodes, closure of the incisions, and placement of the dressings. I attest to the content of the Intraoperative Record and any orders documented therein. Any exceptions are noted below.
[2019-07-07] MEDS: fentaNYL citrate 100 MCG/2 ML VIAL IV PRN ×4 (15:53→16:08)
[2019-07-07] MEDS: HYDROmorphone INJ 1 MG/ML SYRINGE IV PRN ×2 (16:43→16:59)
--- NOTE | 2019-07-07 17:08 | Anesthesiology Progress Note ---
Date of Service July 07, 2019 Anesthesia Post Procedure Vital Signs Vital Signs: Temp Pulse Pulse Resp BP BP Pulse Ox 07/07/19 16:55 72 22 140/96 97 07/07/19 16:45 79 20 174/105 H 98 07/07/19 16:35 73 21 153/106 H 98 07/07/19 16:25 37.2 C 73 16 176/97 H 98 07/07/19 16:15 74 16 164/96 H 99 07/07/19 16:05 77 18 156/99 H 99 07/07/19 15:55 73 18 165/101 H 98 07/07/19 15:45 75 16 160/95 H 100 07/07/19 15:35 75 16 145/92 H 100 07/07/19 15:29 36.8 C 85 16 167/103 H 100 07/07/19 09:50 36.7 C 83 18 188/111 H 99 Pain Intensity Penis: Pain Intensity: 8 Left Lower Lateral Abdomen: Pain Intensity: 10 Transfer of Care Handoff Completed per policy Notes Mental Status: alert / awake / arousable Patient Amnestic to Procedure: Yes Nausea / Vomiting: adequately controlled Pain: adequately controlled Airway Patency, RR, SpO2: stable & adequate BP & HR: stable & adequate Hydration State: stable & adequate Anesthetic Complications: no major complications apparent
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
[2019-07-07] MEDS ORDERED: ACETAMINOPHEN 325 MG TAB PO PRN (19:05)
[2019-07-07] MEDS ORDERED: HYDROCODONE/ACETAMOPHEN 5/325MG TAB PO PRN ×2 (19:05)
[2019-07-07] MEDS ORDERED: LORazepam 0.5 MG/1 ML VIAL IV PRN (19:05)
[2019-07-07] MEDS ORDERED: MoRPHine SULFATE 10 MG/ML CARP/VIAL IV PRN (19:05)
[2019-07-07 20:20] LABS: Creatinine Clr Calc Pharmacy 60.8 ml/min; Est GFR (African American) 97.2; Est GFR (Non-African American) 83.9
[2019-07-07] MEDS ORDERED: ASPIRIN 81 MG ECTAB PO SCH (21:00)
[2019-07-07] MEDS ORDERED: METHENAMINE HIPPURATE 1 GM TAB PO SCH (21:00)
[2019-07-07] MEDS ORDERED: PHENYTOIN SODIUM ER 100 MG CAP PO SCH (21:00)
[2019-07-07] MEDS ORDERED: ENOXAPARIN INJ 30 MG/0.3 ML SYR SQ SCH (22:00)
[2019-07-07] MEDS ORDERED: HydrALAZINE HCL 20 MG/ML VIAL IV PRN (22:59)
[2019-07-07] MEDS ORDERED: LORazepam 1 MG/2 ML VIAL IV PRN (23:00)
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
[2019-07-08] MEDS ORDERED: SODIUM CHLORIDE 0.9% 500 ML IV SCH (01:00)
[2019-07-08 06:15] LABS: Basophils # (auto) 0.02 K/uL (0-0.2); Basophils % (auto) 0.3 %; Eosinophils # (auto) 0.06 K/uL (0-0.5); Eosinophils % (auto) 0.9 %; Hematocrit (blood only) 34.3 % (42-52); Hemoglobin 11.7 g/dL (14.0-18.0); Immature Granulocytes # (auto) 0.02 K/uL (0.00-0.02); Immature Granulocytes % (auto) 0.3 %; Lymphocytes # (auto) 1.61 K/uL (1.2-3.4); Lymphocytes % (auto) 22.9 %; Mean Corpuscular Hemoglobin 33.5 pg (25-34); Mean Corpuscular Hgb Conc 34.1 g/dL (32-36); Mean Corpuscular Volume 98.3 fL (80-100); Mean Platelet Volume 8.8 fL (7.4-10.4); Monocytes % (auto) 12.8 %; Neutrophils # (auto) 4.43 K/uL (1.4-6.5); Neutrophils % (auto) 62.8 %; Platelet Count 175 K/uL (130-400); RDW Coefficient of Variation 13.9 % (11.5-14.5); RDW Standard Deviation 49.3 fL (36.4-46.3); Red Blood Count 3.49 M/uL (4.7-6.1); White Blood Count 7.04 K/uL (4.8-10.8)
[2019-07-08 06:54] LABS: BUN Creatinine Ratio 15.6 (10-20); Calcium 8.3 mg/dl (8.5-10.1); Creatinine Clr Calc Pharmacy 57.4 ml/min; Est GFR (African American) 94.9; Est GFR (Non-African American) 81.9; Potassium 4.4 mmol/L (3.5-5.1)
--- NOTE | 2019-07-08 08:30 | Anesthesiology Progress Note ---
Date of Service July 08, 2019 Anesthesia Post Procedure Vital Signs Vital Signs: Temp Pulse Pulse Resp BP BP Pulse Ox 07/08/19 07:18 36.9 C 71 18 160/83 H 94 07/08/19 04:09 36.8 C 82 19 130/85 96 07/08/19 00:05 36.7 C 84 19 148/90 H 95 07/07/19 21:00 36.7 C 75 18 155/85 H 95 07/07/19 20:14 36.6 C 77 18 171/106 H 96 07/07/19 19:05 36.8 C 84 154/84 H 93 07/07/19 18:45 69 20 139/89 97 07/07/19 18:35 71 20 145/93 H 96 07/07/19 18:25 82 16 171/102 H 98 07/07/19 18:15 36.6 C 81 19 150/111 H 98 07/07/19 18:00 80 18 145/99 H 98 07/07/19 17:50 75 22 140/82 97 07/07/19 17:40 80 18 144/96 H 96 07/07/19 17:32 82 22 153/98 H 95 07/07/19 17:15 78 18 143/87 H 96 07/07/19 17:05 37.0 C 70 22 132/87 97 07/07/19 16:55 72 22 140/96 97 07/07/19 16:45 79 20 174/105 H 98 07/07/19 16:35 73 21 153/106 H 98 07/07/19 16:25 37.2 C 73 16 176/97 H 98 07/07/19 16:15 74 16 164/96 H 99 07/07/19 16:05 77 18 156/99 H 99 07/07/19 15:55 73 18 165/101 H 98 07/07/19 15:45 75 16 160/95 H 100 07/07/19 15:35 75 16 145/92 H 100 07/07/19 15:29 36.8 C 85 16 167/103 H 100 07/07/19 09:50 36.7 C 83 18 188/111 H 99 Pain Intensity Penis: Pain Intensity: 8 Left Lower Lateral Abdomen: Pain Intensity: 10 Left Flank: Pain Intensity: 10 Notes Mental Status: alert / awake / arousable and participated in evaluation Patient Amnestic to Procedure: Yes Nausea / Vomiting: adequately controlled Pain: adequately controlled Airway Patency, RR, SpO2: stable & adequate BP & HR: stable & adequate Hydration State: stable & adequate Anesthetic Complications: no major complications apparent and Pt Satisfied with anesthetic care
[2019-07-08] MEDS ORDERED: PHENYTOIN SODIUM ER 100 MG CAP PO SCH (09:00)
[2019-07-08] MEDS ORDERED: lisinopriL 40 MG TAB PO SCH (09:00)
[2019-07-08] MEDS ORDERED: AMLODIPINE BESYLATE 5 MG TAB PO SCH (09:00)
--- NOTE | 2019-07-08 09:59 | Surgery Progress Note ---
Date of Service July 08, 2019 Assessment & Plan (1) Malignant melanoma: Pain managed, nausea resolved ok for d/c after seen by transition social worker Subjective feels better today, no pain meds so far, tolerating diey Physical Exam Gastrointestinal (Abdomen): Inspection/Auscultation: + abdominal surgical incision (minimla drainage from left flank, axilla and groin wounds dry) Results & Data Vital Signs (Past 12 Hours) Vital Signs Temp Pulse Resp BP Pulse Ox 07/08/19 07:18 36.9 C 71 18 160/83 H 94 07/08/19 04:09 36.8 C 82 19 130/85 96 07/08/19 00:05 36.7 C 84 19 148/90 H 95 PG Care Time/CCT Total # of Minutes Spent Total Time Spent with Patient: Total time spent is greater than 50% in coordination of care (as documented) at patient's floor/unit and/or counseling patient:
--- NOTE | 2019-07-12 07:21 | Discharge Summary ---
Date of Service July 12, 2019 Principal Diagnosis Malignant melanoma Discharge Exam Gastrointestinal (Abdomen) Inspection/Auscultation: + abdominal surgical incision (minimal drainage from flank wound, groina and axilla clean, dry) Discharge Data Allergies Allergy/AdvReac Type Severity Reaction Status Date / Time adhesive tape AdvReac Mild Verified 07/07/19 09:42 doxycycline AdvReac Mild UNSURE Verified 07/07/19 09:42 Consultations 07/07/19 19:05 Consult Case Management - Discharge Planning Routine Consult Hospitalist Routine Procedures Performed Operation Date: 07/07/19 13:00 Actual Procedures p Wide Local Excision of Left Flank Melanoma(Left) - Saeid Carlson DO, FACS [facility] Lymph Node Biopsies of Left Axilla and Left Groin(Left) - Saeid Carlson DO, FACS Hospital Course (1) Malignant melanoma: 79 y/o male with malignant melanoma of left flank was taken to the OR for wide excision and sentinel lymph node biopsy of left axilla and groin. While recovering in same day he was having pain and nausea and anxiety about caring for himself at home. He was admitted for overnight observation. In the morning his nausea had resolved and pain was minimal. He was seen by addiction social worker for discharge planning but declined home health services. He was stable for discharge later in the day. Total Time Total Time Spent Total Time Spent (In Minutes): 10 Discharge Plan Discharge Items Patient Disposition: Home - Self-Care Reason For Visit: POST OP PAIN/ANXIETY,FEAR OF GOING HOME AND SELF C Discharge Diagnosis: excision of melanoma and sentinel lymph node biopsy Activity: Per Instructions section Lifting: No more than 25 pounds Bathing Comment: you may shower starting tomorrow-07/09/19, remove bandage to shower Exercise/Sports: Wait until after follow-up appointment Non-emergency contact: Surgeon Call non-emergency contact if: you have any medication questions, your symptoms worsen, your pain is not controlled, your pain is worsening, you have a fever, your temperature is above 101.5, your wound has increased redness, your wound has increased drainage and your wound pain has increased Follow-up/Referrals: Saeid Carlson DO, FACS [Physician] - (Please call to schedule follow up in clinic within 1-2 weeks. You may call the office sooner if you have any questions/concerns.) Rossi Claudio PA-C [Primary Care Provider] - Diet: Regular Addtl Attending Provider Instructions: You have non-dissolvable sutures in place that will be removed when you follow up in clinic in 2 weeks Change bandage daily, you can leave bandage off once the wound stops draining Pending Studies at Discharge: No Stand-Alone Forms: My [facility] Medications and DC Order Prescriptions: New oxycodone-acetaminophen [Percocet] 5-325 mg tablet 1 - 2 tab PO Q4H PRN (Reason: pain, initial therapy) Qty: 15 RF: 0 ibuprofen 600 mg tablet 600 mg PO Q8H PRN (Reason: pain) Qty: 30 RF: 0 cephalexin [Keflex] 500 mg capsule 500 mg PO TID 7 Days Qty: 21 RF: 0 Continued lisinopril 40 mg tablet 40 mg PO QAM RF: 0 aspirin 81 mg Tablet,Delayed Release (Dr/Ec) 81 mg PO QPM RF: 0 phenytoin sodium extended [Dilantin Extended] 100 mg capsule 200 mg PO QAM RF: 0 phenytoin sodium extended 100 mg Capsule 100 mg PO HS RF: 0 methenamine mandelate 0.5 g tablet 0.5 gm PO HS RF: 0 amlodipine 5 mg Tablet 5 mg PO DAILY RF: 0 Discharge Orders: Discharge Order (Routine); Ordered 07/08/19 Ordered By: Agus Andrew Jr Admission Data Admit Date/Time: 07/07/19 17:52 Attending Provider: Saeid Carlson Admit Provider: Deep Dye Primary Care Provider: Rossi Claudio Other Providers: Jonh Hernandez Other Interventions: Discharge Summary Assessment (RN) Last Done: 07/08/19 10:21 DC Date/Time DO NOT enter until pt leaves facility: 07/08/19 12:25
== END 2019-07-08 12:25 | disposition home or self-care (01) ==
LOC: NM 07:57 → 3W 07:57

== ENCOUNTER 2019-12-02 13:03 | Observation (INO) ==
[2019-12-02] MEDS ORDERED: ACETAMINOPHEN 1,000 MG/100 ML VIAL IV STA (14:14)
[2019-12-02] MEDS ORDERED: SODIUM CHLORIDE 0.9% 500 ML IV ONE (14:14)
[2019-12-02] MEDS ORDERED: MoRPHine SULFATE 4 MG/ML 1 ML CARP\\VIAL IV STA (14:14)
[2019-12-02] MEDS ORDERED: MoRPHine SULFATE 2 MG/ML CARP IV PRN (14:27)
[2019-12-02 14:44] LABS: Basophils # (auto) 0.01 K/uL (0-0.2); Basophils % (auto) 0.1 %; Hematocrit (blood only) 33.1 % (42-52); Hemoglobin 10.8 g/dL (14.0-18.0); Immature Granulocytes # (auto) 0.07 K/uL (0.00-0.02); Immature Granulocytes % (auto) 0.4 %; Lymphocytes % (auto) 8.1 %; Mean Corpuscular Hemoglobin 29.3 pg (25-34); Mean Corpuscular Hgb Conc 32.6 g/dL (32-36); Mean Corpuscular Volume 89.9 fL (80-100); Mean Platelet Volume 9.6 fL (7.4-10.4); Monocytes # (auto) 1.57 K/uL (0.11-0.59); Monocytes % (auto) 9.8 %; Neutrophils # (auto) 13.11 K/uL (1.4-6.5); Neutrophils % (auto) 81.6 %; Platelet Count 184 K/uL (130-400); RDW Coefficient of Variation 15.2 % (11.5-14.5); RDW Standard Deviation 49.3 fL (36.4-46.3); Red Blood Count 3.68 M/uL (4.7-6.1); White Blood Count 16.06 K/uL (4.8-10.8)
[2019-12-02 15:12] LABS: Alanine Aminotransferase 29 U/L (12-78); Albumin Globulin Ratio 0.5 (0.9-2); Albumin Level 2.3 gm/dl (3.4-5.0); Alkaline Phosphatase 81 U/L (45-117); Aspartate Aminotransferase 54 U/L (15-37); BUN Creatinine Ratio 20.4 (10-20); Bilirubin,Total 0.7 mg/dl (0.2-1); Blood Urea Nitrogen 70 mg/dl (7-18); Calcium 9.1 mg/dl (8.5-10.1); Carbon Dioxide 20 mmol/L (21-32); Chloride 104 mmol/L (98-107); Est GFR (African American) 18.5; Globulin 4.9 gm/dl (2.5-4.0); Glucose 94 mg/dl (70-99); Potassium 6.6 mmol/L (3.5-5.1); Sodium 135 mmol/L (136-145); Total Protein 7.2 gm/dl (6.4-8.2)
--- NOTE | 2019-12-02 15:38 | History & Physical Report ---
Date of Service December 02, 2019 Assessment & Plan (1) Intractable pain: Admit to inpatient on hospice care and comfort care only. Consult palliative care. [facility]. Control pain with morphine IR 5 mg every 2 hours as needed. Lorazepam 1 mg p.o. every 2 hours as needed for anxiety and agitation. Constipation prophylaxis with docusate sodium 100 mg p.o. twice daily and MiraLAX daily as needed. DVT prophylaxis-patient declined CODE STATUS: DNR/DNI per patient's wishes Present on Admission?: Yes (2) Metastatic malignant melanoma: As the above The tumor is metastatic to brain. Seizure precautions. Continue Keppra 500 mg p.o. twice daily, Phenytoin sodium 100 mg p.o. nightly. Phenytoin sodium 200 mg p.o. every morning. Present on Admission?: Yes (3) Hypertension: Continue home medicine lisinopril 40 mg p.o. every morning, and amlodipine 5 mg p.o. every afternoon. Present on Admission?: Yes (4) Anxiety: Started lorazepam 1 mg p.o. every 2 hours as needed. 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 Patient was brought by his son and his brother who are stated that patient's pain is uncontrollable even though he was started by his oncologist Dr. Hernandez on OxyContin and [place] 1 tablet p.o. every 6 hours as needed for breakthrough pain. Since patient has brain metastases he is also at risk of seizure and he was taking dexamethasone 4 mg p.o. every 6 hours and Keppra 500 mg p.o. twice daily as well as phenytoin 100 mg p.o. nightly and 200 mg p.o. every morning. Patient denies any recent seizure activity. Labs are reviewed which shows: WBC 16.06, hemoglobin 10.8, hematocrit 33.1, platelets 184, PT 12.4, INR 1.2, sodium 135, potassium 6.6, pending repeat, chloride 104, anion gap 11, BUN 70, creatinine 3.46 GFR 16, BUN 20.4, AST 54, ALT 29, alkaline phosphatase 81, total protein 7.2, albumin 2.3, globulin 4.9, phenytoin 1.0. CT abdomen and pelvis shows significant interval progression of disease with evidence of peritoneal carcinomatosis. Multiple soft tissue implants in the superficial subcutaneous fat versus meta static disease, left inguinal lymphadenopathy and multiple liver lesions. Moderate left hydro-ureteronephrosis with obstructing soft tissue in the distal left ureter also most concerning for metastatic disease. Bibasilar pulmonary nodules suspected, also likely related to progression of metastatic disease. Significantly trabeculated bladder wall likely in the setting of chronic bladder outlet obstruction. Gallstone versus small gallbladder polyp versus metastatic deposit. Decision was made to admit patient to comfort care only as per his request and his son request and helped him to connect with hospice agency. Allergies Allergy/AdvReac Type Severity Reaction Status Date / Time adhesive tape AdvReac Mild Verified 12/02/19 16:09 Home Medications Home Medications Medication Instructions Recorded Confirmed Type lisinopril 40 mg tablet 40 mg PO QAM tab 06/11/19 10/21/19 History amlodipine 5 mg PO PM 07/07/19 10/21/19 History levetiracetam [Keppra] 500 mg PO BID #30 tab 09/14/19 10/21/19 Rx ondansetron HCl 8 mg PO Q8 09/14/19 10/21/19 History acetaminophen [Tylenol Extra 0 mg PO Q6H PRN 10/18/19 10/21/19 History Strength] oxycodone 10 mg PO Q4 PRN 12/02/19 12/02/19 History oxycodone [OxyContin] 20 mg PO BID 12/02/19 12/02/19 History Past Med/Surg History Medical History Acute kidney insufficiency (Inactive) Dizziness Emphysema/COPD Fall (Inactive) West catheter in place INCONTINENCE Hearing deficit Hx of seizure disorder DX MULTIPLE YEARS AGO AND last seizure 2003 Hypertension Malignant melanoma (Resolved) current issue on left side Osteoarthritis Rib fractures (Resolved) Urinary retention Surgical History History of cataract surgery (Resolved) both eyes History of open reduction and internal fixation (ORIF) procedure (Resolved) right ARM - as child History of surgery Wide excision of left flank melanoma, SLN biopsy of left axilla and left groin, and excision of deep satellite lesion of melanoma on 07/07/[address] 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 Sister No problems noted. Sister No problems noted. Sister No problems noted. Daughter No problems noted. Daughter No problems noted. Daughter Blood disorder Son No problems noted. 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 of Hearing Director Of Residential Services Required: No Beliefs That Will Affect Care: None marital status: marital status details: Lives in same house as , but limited interaction Current Living Situation: Spouse and Family current occupational status: retired current occupation: [employer] G[employer] Feels Safe at Home: Yes Smoking Status: Never smoker Tobacco Type: cigarettes ; Cigarettes Per Day: Smoked x 1 year at age 51yo ; Second Hand Exposure: No ; Hx Alcohol Use: Yes Alcohol type: beer Alcohol Intake Frequency: Daily caffeine: Yes (1 cup/day) during the past year weight has: remained stable Review of Systems Review of Systems: All systems reviewed & are unremarkable except as noted in HPI & below Physical Exam Constitutional: WD/WN, vitals as above well developed, + ill appearing, + thin and + cachectic Eyes: PERRL, conjunctivae normal, anicteric sclerae ENMT: external ear and nose normal, oropharynx normal Neck: trachea midline, no thyromegaly Respiratory: Auscultation: + crackles and + wheezes Cardiovascular: Heart Sounds: normal S1 and normal S2 Palpation: + palpable S3 Vessels: dorsalis pedis pulses present Extremities: + pedal edema left lower extremity TKA Gastrointestinal (Abdomen): normal bowel sounds, soft, nontender, no hepatosplenomegaly Musculoskeletal: no cyanosis or clubbing, extremities motor strength 5/5 Skin: no rashes, warm and dry Neurologic: patellar DTR's 2+ bilat, sensation intact Psychiatric: A+Ox3, euthymic affect Lymphatic: no cervical or axillary lymphadenopathy + lymphadenopathy Results & Data Vital Signs (Past 12 Hours) Vital Signs Pulse Resp BP Pulse Ox 12/02/19 15:00 95 H 20 132/86 94 12/02/19 14:36 95 H 31 H 113/89 12/02/19 13:14 88 20 106/68 98 Code Status & VTE Plan Code Status Full Code VTE Prophylaxis Plan VTE Prophylaxis will be ordered: Yes PG Care Time/CCT Total # of Minutes Spent Total Time Spent with Patient: Total time spent is greater than 50% in coordination of care (as documented) at patient's floor/unit and/or counseling patient: Coding Level of Care Code 23055 Initial Inpt Care Lvl 3 Diagnoses Intractable pain R52 Metastatic malignant melanoma C79.9 Hypertension I10 Anxiety F41.9
[2019-12-02] MEDS ORDERED: ACETAMINOPHEN 325 MG TAB PO PRN (16:46)
[2019-12-02] MEDS ORDERED: LORazepam 1 MG TAB PO PRN (16:46)
[2019-12-02] MEDS ORDERED: POLYETHYLENE (MIRALAX) 17 GM PACK PO PRN (16:46)
[2019-12-02] MEDS ORDERED: MAGNESIUM HYDROXIDE SUSP 30 ML UDC PO PRN (16:46)
[2019-12-02] MEDS ORDERED: OXYCODONE HCL IR 5 MG TAB (IMMEDIATE RELEASE) PO PRN (16:46)
[2019-12-02] MEDS ORDERED: ALUMINUM/MAGNESIUM SUSP 30 ML UDC PO PRN (16:46)
[2019-12-02 17:28] LABS: BUN Creatinine Ratio 22.2 (10-20); Blood Urea Nitrogen 71 mg/dl (7-18); Carbon Dioxide 16 mmol/L (21-32); Chloride 106 mmol/L (98-107); Est GFR (African American) 20.3; Est GFR (Non-African American) 17.5; Glucose 93 mg/dl (70-99); Potassium 5.7 mmol/L (3.5-5.1); Sodium 136 mmol/L (136-145)
[2019-12-02] MEDS ORDERED: dexAMETHasone 4 MG TAB PO SCH (18:00)
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
[2019-12-02] MEDS ORDERED: AMLODIPINE BESYLATE 5 MG TAB PO SCH (21:00)
[2019-12-02] MEDS ORDERED: PHENYTOIN SODIUM ER 100 MG CAP PO SCH (21:00)
[2019-12-02] MEDS: DOCUSATE SODIUM 100 MG CAP PO SCH (21:09)
[2019-12-02] MEDS: ONDANSETRON 8MG OD TAB PO SCH (21:10)
[2019-12-02] MEDS: levETIRAcetam 500 MG TAB PO SCH (21:11)
[2019-12-03] MEDS: ONDANSETRON 8MG OD TAB PO SCH ×3 (06:07→14:14)
[2019-12-03] MEDS: levETIRAcetam 500 MG TAB PO SCH (08:03)
[2019-12-03] MEDS: DOCUSATE SODIUM 100 MG CAP PO SCH (08:03)
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
[2019-12-03] MEDS ORDERED: lisinopriL 40 MG TAB PO SCH (09:00)
[2019-12-03] MEDS ORDERED: PHENYTOIN SODIUM ER 100 MG CAP PO SCH (09:00)
--- NOTE | 2019-12-03 11:10 | History & Physical Bridge Note ---
Date of Service December 03, 2019 History & Physical Bridge Note Two physician review completed and patient does not meet medical necessity for acute inpatient admission/care. Observation status is appropriate. Terence Joseph MD
--- NOTE | 2019-12-03 11:11 | Communication Note ---
Date of Service: December 03, 2019 It is determined that an inpatient level of care, after case was reviewed by 2 medical providers (Dr. Slaughter and Dr. Joseph), does not meet inpatient admission criteria. Will change the patient's status from inpatient to outpatient observation using conditional code 44.
[2019-12-03] MEDS ORDERED: MoRPHine SULFATE 5 MG/0.25 ML UDP PO PRN (11:26)
[2019-12-03] MEDS ORDERED: LORazepam 0.5 MG TAB SL PRN (11:26)
--- NOTE | 2019-12-10 07:06 | Discharge Summary ---
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 Patient was brought by his son and his brother who are stated that patient's pain is uncontrollable even though he was started by his oncologist Dr. Hernandez on OxyContin and [place] 1 tablet p.o. every 6 hours as needed for breakthrough pain. Since patient has brain metastases he is also at risk of seizure and he was taking dexamethasone 4 mg p.o. every 6 hours and Keppra 500 mg p.o. twice daily as well as phenytoin 100 mg p.o. nightly and 200 mg p.o. every morning. Patient denies any recent seizure activity. Labs are reviewed which shows: WBC 16.06, hemoglobin 10.8, hematocrit 33.1, platelets 184, PT 12.4, INR 1.2, sodium 135, potassium 6.6, pending repeat, chloride 104, anion gap 11, BUN 70, creatinine 3.46 GFR 16, BUN 20.4, AST 54, ALT 29, alkaline phosphatase 81, total protein 7.2, albumin 2.3, globulin 4.9, phenytoin 1.0. CT abdomen and pelvis shows significant interval progression of disease with evidence of peritoneal carcinomatosis. Multiple soft tissue implants in the superficial subcutaneous fat versus meta static disease, left inguinal lymphadenopathy and multiple liver lesions. Moderate left hydro-ureteronephrosis with obstructing soft tissue in the distal left ureter also most concerning for metastatic disease. Bibasilar pulmonary nodules suspected, also likely related to progression of metastatic disease. Significantly trabeculated bladder wall likely in the setting of chronic bladder outlet obstruction. Gallstone versus small gallbladder polyp versus metastatic deposit. Decision was made to admit patient to comfort care only as per his request and his son request and helped him to connect with hospice agency. Principal Diagnosis Intractable pain Discharge Exam Constitutional: WD/WN, vitals as above well developed, + ill appearing, + thin and + cachectic Eyes: PERRL, conjunctivae normal, anicteric sclerae ENMT: external ear and nose normal, oropharynx normal Neck: trachea midline, no thyromegaly Respiratory: Auscultation: + crackles Cardiovascular: Heart Sounds: normal S1 and normal S2 Palpation: + palpable S3 Vessels: dorsalis pedis pulses present Extremities: + pedal edema left lower extremity TKA Gastrointestinal (Abdomen): normal bowel sounds, soft, nontender, no hepatosplenomegaly Musculoskeletal: no cyanosis or clubbing, extremities motor strength 5/5 Skin: no rashes, warm and dry Neurologic: patellar DTR's 2+ bilat, sensation intact Psychiatric: A+Ox3, euthymic affect Lymphatic: no cervical or axillary lymphadenopathy + lymphadenopathy Discharge Data Allergies Allergy/AdvReac Type Severity Reaction Status Date / Time adhesive tape AdvReac Mild Verified 12/02/19 16:09 Consultations 12/02/19 14:27 ED Decision to Admit Stat 12/02/19 16:46 Consult Palliative Care Routine Hospital Course (1) Intractable pain: Admit to inpatient on hospice care and comfort care only. Consult palliative care. [facility] decided [facility]. Control pain with morphine IR 5 mg every 2 hours as needed. Lorazepam 1 mg p.o. every 2 hours as needed for anxiety and agitation. Constipation prophylaxis with docusate sodium 100 mg p.o. twice daily and MiraLAX daily as needed. DVT prophylaxis-patient declined CODE STATUS: DNR/DNI per patient's wishes On day 2, patient and family ultimately decided on home hospice after palliative care meeting. Patient will be discharged today. Medications for pain and nausea noted below. (2) Metastatic malignant melanoma: As the above The tumor is metastatic to brain. Seizure precautions. Continue Keppra 500 mg p.o. twice daily, Phenytoin sodium 100 mg p.o. nightly. Phenytoin sodium 200 mg p.o. every morning. (3) Hypertension: Continue home medicine lisinopril 40 mg p.o. every morning, and amlodipine 5 mg p.o. every afternoon. (4) Anxiety: Started lorazepam 1 mg p.o. every 2 hours as needed. Total Time Total Time Spent Total Time Spent (In Minutes): 32 Total Time Includes: Examination of the Patient, Discharge Planning and Medication Reconciliation Discharge Plan Discharge Items Patient Disposition: Hospice - Home Reason For Visit: METASTATIC MELANOMA Discharge Diagnosis: metastatic melanoma Activity: Resume your previous activity Non-emergency contact: Primary Care Provider Call non-emergency contact if: you have any medication questions Follow-up/Referrals: Rossi Claudio PA-C [Primary Care Provider] - Diet: Regular Addtl Attending Provider Instructions: will be discharged on home hospice Pending Studies at Discharge: No Stand-Alone Forms: My [facility] Mytonomy Medications and DC Order Prescriptions: New phenytoin sodium extended [Dilantin Extended] 100 mg Capsule 100 mg PO HS Qty: 30 RF: 0 phenytoin sodium extended [Dilantin Extended] 100 mg Capsule 200 mg PO QAM Qty: 30 RF: 0 lorazepam 0.5 mg Tablet 0.5 mg sublingual Q4H PRN (Reason: ANXIETY) Qty: 20 RF: 0 morphine concentrate 100 mg/5 mL (20 mg/mL) Solution 5 mg PO Q3H PRN (Reason: PAIN/SOB) Qty: 30 RF: 0 ondansetron 8 mg Tablet,Disintegrating 8 mg PO Q8 PRN (Reason: nausea and vomiting) Qty: 30 RF: 0 docusate sodium 100 mg Capsule 100 mg PO BID Qty: 60 RF: 0 Continued lisinopril 40 mg tablet 40 mg PO QAM RF: 0 amlodipine 5 mg Tablet 5 mg PO PM RF: 0 levetiracetam [Keppra] 500 mg tablet 500 mg PO BID Qty: 30 RF: 0 acetaminophen [Tylenol Extra Strength] 500 mg Tablet 0 mg PO Q6H PRN (Reason: Pain) RF: 0 Discontinued oxycodone 10 mg tablet 10 mg PO Q4 PRN (Reason: Pain) RF: 0 oxycodone [OxyContin] 20 mg tablet,oral only,ext.rel.12 hr 20 mg PO BID RF: 0 ondansetron HCl 8 mg tablet 8 mg PO Q8 PRN (Reason: Nausea) RF: 0 Discharge Orders: Discharge Order (Routine); Ordered 12/03/19 Ordered By: Adonis Slaughter Admission Data Admit Date/Time: 12/02/19 15:36 Attending Provider: Adonis Slaughter Admit Provider: Valentin Mims Primary Care Provider: Rossi Claudio Other Providers: Valentin Mims ; Alexus Davis Other Interventions: Discharge Summary Assessment (RN) Last Done: 12/03/19 15:48 DC Date/Time DO NOT enter until pt leaves facility: 12/03/19 17:44 Coding Level of Care Code 26192 OBS Care - Discharge Diagnoses Intractable pain R52 Metastatic malignant melanoma C79.9 Hypertension I10 Anxiety F41.9
== END 2019-12-03 17:44 | disposition hospice, home (50) ==
LOC: ED 13:03 → SUATTDRO 15:36 → 2W 15:36 → INTOOBSV 15:36 → 2W 16:00